=== PATIENT | male | born 1940 | race Caucasian/White ===

== ENCOUNTER 2022-10-01 09:56 | Inpatient (IN) | payer MEDICARE, BC ==
[~2022-10-01] VITALS: Ht 182.9 cm; Wt 72.2 kg
[2022-10-01] MEDS ORDERED: IV NS 0.9% 1,000 ML BAG IV ONE (10:30)
--- NOTE | 2022-10-01 10:38 | NUR ---
Patient AOx1-2, able to express his concerns. Patients caregiver at bedside. VSS
--- NOTE | 2022-10-01 10:44 | NUR ---
MOVE SHEET SUBMITTED.
[2022-10-01] MEDS ORDERED: LORAZEPAM INJ 2 MG/ML VIAL ONE (10:45)
[2022-10-01 10:54] LABS: BASOPHILS % (AUTO) 0.4 % (0.0-2.0); EOSINOPHILS % (AUTO) 0.2 % (0.0-6.0); HEMATOCRIT 41 % (39-51); HEMOGLOBIN 13.8 g/dL (13.5-17.5); LYMPHOCYTES # (AUTO) 1.3 K/uL (0.8-4.8); LYMPHOCYTES % (AUTO) 22.7 % (20.0-44.0); MEAN CORPUSCULAR HGB CONC 34 g/dl (31.0-36.0); MEAN CORPUSCULAR VOLUME 90 fL (80-96); MONOCYTES # (AUTO) 0.8 K/uL (0.1-1.30); MONOCYTES % (AUTO) 13.2 % (2.0-12.0); NEUTROPHILS # (AUTO) 3.6 K/uL (1.8-8.9); NEUTROPHILS % (AUTO) 63.5 % (43.0-81.0); PLATELET COUNT (AUTO) 121 K/uL (150-450); RED BLOOD CELL COUNT(AUTO) 4.55 MIL/uL (4.5-6.0); WHITE BLOOD COUNT (AUTO) 5.7 K/uL (4.3-11.0)
--- NOTE | 2022-10-01 10:54 | NUR ---
COVID swab collected.
[2022-10-01] MEDS ORDERED: LORAZEPAM INJ 2 MG/ML VIAL IV ONE ×2 (11:00→14:00)
[2022-10-01 11:05] LABS: CALCIUM, SERUM 8.6 mg/dL (8.5-10.1); CARBON DIOXIDE 24 mmol/L (21-32); CHLORIDE 97 mmol/L (98-107); CREATININE 1.1 mg/dL (0.6-1.3); GLUCOSE 107 mg/dL (74-106); POTASSIUM 2.9 mmol/L (3.5-5.1); SODIUM SERUM 132 mmol/L (136-145); UREA NITROGEN, BLOOD 15 mg/dL (7-18)
[2022-10-01 11:11] LABS: ALANINE AMINOTRANSFERASE 20 U/L (12-78); ALKALINE PHOSPHATASE 322 U/L (46-116); ASPARTATE AMINOTRANSFERASE 29 U/L (15-37); BILIRUBIN,DIRECT 0.3 mg/dL (0.0-0.2); BILIRUBIN,TOTAL 0.9 mg/dL (0.2-1.0); TOTAL PROTEIN, SERUM 7.5 g/dL (6.4-8.2)
[2022-10-01] MEDS ORDERED: LEVE500T20 PO (11:13)
[2022-10-01] MEDS ORDERED: HYDR100T27 PO (11:13)
[2022-10-01] MEDS ORDERED: ESCI10TA PO (11:13)
[2022-10-01] MEDS ORDERED: ROSU20TA32 PO (11:13)
[2022-10-01] MEDS ORDERED: METO25TA4 PO (11:13)
[2022-10-01] MEDS ORDERED: CLOP75TA15 PO (11:13)
[2022-10-01] MEDS ORDERED: AMLO-212 PO (11:13)
--- NOTE | 2022-10-01 11:30 | NUR ---
Collected urine, sent to lab
[2022-10-01 11:39] LABS: BILIRUBIN,URINE NEGATIVE (NEGATIVE); COLOR,URINE YELLOW (YELLOW); LEUKOCYTE ESTERASE ,URINE NEGATIVE (NEGATIVE); NITRITE, URINE NEGATIVE (NEGATIVE); PH,URINE 8.5 (5.0-8.0); PROTEIN,URINE TRACE mg/dl (NEGATIVE); UGLUCOSE NEGATIVE (NEGATIVE)
--- NOTE | 2022-10-01 11:54 | NUR ---
GOT BED 308-2 SHIRA MENDOZA.
[2022-10-01 12:25] LABS: RBC,URINE 21-50 /HPF (0-2)
[2022-10-01 12:26] LABS: BACTERIA,URINE None seen /HPF (None Seen); SQUAMOUS EPITHELIAL CELL,UR Few /HPF (None Seen); WBC,URINE 0-2 /HPF (0-3)
[2022-10-01] MEDS ORDERED: POTASSIUM CHLORIDE 20 MEQ TAB.PRT.SR PO ONE ×2 (12:30→13:11)
[2022-10-01] MEDS ORDERED: hydrALAZINE HCL IV 20 MG VIAL ONE (13:18)
[2022-10-01] MEDS ORDERED: hydrALAZINE HCL IV 20 MG VIAL IV ONE (13:30)
[2022-10-01] MEDS ORDERED: MAG HYDROX/AL HYDROX/SIMETH 30 ML UDC PO PRN (14:00)
[2022-10-01] MEDS ORDERED: MAGNESIUM HYDROXIDE 30 ML UDC PO PRN (14:00)
[2022-10-01] MEDS ORDERED: ACETAMINOPHEN 325 MG TABLET PO PRN (14:00)
[2022-10-01] MEDS ORDERED: Magnesium 1 GM/2 ML VIAL IV ONE (14:00)
[2022-10-01] MEDS ORDERED: ONDANSETRON HCL/PF 4 MG/2 ML VIAL IVP PRN (14:00)
[2022-10-01] MEDS: METOPROLOL SUCCINATE 25 MG TAB.SR.24H PO SCH ×2 (14:00→17:09)
[2022-10-01] MEDS ORDERED: Z GUARD REMEDY 4 OZ OINT TP PRN (14:00)
[2022-10-01] MEDS ORDERED: ENOXAPARIN SODIUM 30 MG/0.3 ML DISP.SYRIN SQ SCH (14:00)
--- NOTE | 2022-10-01 14:18 | NUR ---
Report given to Alexandra S[facility]
[2022-10-01] MEDS ORDERED: MAGNESIUM OXIDE 400 MG TABLET PO ONE (15:00)
--- NOTE | 2022-10-01 15:30 | NUR ---
ADMISSION RN NOTES ADMITTED A 82 Y/O MALE TO THE UNIT AT 1505 VIA GURNEY ACCOMPANIED BY E.RBrandie NURSE GI, WITH DX OF ALOC. PATIENT IS ALERT AND ORIENTED X, CONFUSED. PT IS REORIENTED AND REDIRECTED NEEDED. PT'S FRIEND, RAFAEL IS AT BEDSIDE. PT IS ORIENTED TO STAFF AND UNIT, REINFORCEMENT NEEDED. V/S TAKEN AND RECORDED. PT ON ROOM AIR, TOLERATING WELL WITH SPO2 AT 96%. NO SOB NOTED AT THIS TIME. NOT IN ANY SIGN OF RESPIRATORY DISTRESS. LUNG SOUNDS CLEAR BILATERALLY UPON AUSCULTATION. TELE AIRCRAFT MECHANIC ELECTRICAL AND RADIO WAS PLACED ON THE PT WITH CURRENT READING OF SINUS RHYTHM, HR 72. NO C/O OF CARDIAC DISTRESS VOICED OUT AT THIS TIME. ABDOMEN SOFT AND NON-TENDER. SKIN IS INTACT, DRY, AND WARM. PHOTOGRAPHS OF SKIN ISSUES TAKEN AND FILED IN THE CHART. IV ACCESS ON RAC G#20 INTACT AND PATENT WITH NS INFUSING AT 75ML/HR. AND ALSO IV ACCESS ON LEFT HAND G#24 SALINE LOCK, INTACT AND PATENT. SAFETY MEASURES INITIATED: BED IN LOWEST AND LOCKED POSITION, SIDE RAILS UP X3, BED ALARM ON, AND CALL LIGHT WITHIN REACH. WILL CONTINUE TO MONITOR PT.
--- NOTE | 2022-10-01 15:38 | NUR ---
RN NOTE METOPROLOL MEDICATION AND ATIVAN 1MG IVP X1 ONE TIME DOSE SCHEDULED AT 1400 NOT ADMINISTERED PT WAS NOT IN THE UNIT AT THAT TIME. PT WAS ADMITTED AT 1505.
--- NOTE | 2022-10-01 15:42 | NUR ---
RN NOTE PT NOTED WITH EPISODES OF RESTLESSNESS AND TRYING TO GET OUT OF BED. PT ALSO PULLED OUT HIS TELE DISINTEGRATOR OPERATOR AND WAS ALSO TRYING TO PULL OUT HIS IV ACCESS. REORIENTED AND REDIRECTED PT SEVERAL TIMES BUT IT WAS INEFFECTIVE. PT'S FAMILY FRIEND ALSO THE PT'S POWER OF CLINICAL EDUCATOR, RAFAEL IS AT BEDSIDE AND REQUESTING FOR ATIVAN TO HELP HIM FEEL CALM AND/OR RESTRAINTS TO HELP HIM NOT PULL OUT HIS IV ACCESS. CALLED DR. CULLEN AND MADE HIM AWARE OF THE PT'S BEHAVIOR WITH ORDERS TO START PT ON BILATERAL SOFT WRIST RESTRAINTS AND ADMINISTER THE ATIVAN ORDERED. MADE PT'S FAMILY FRIEND RAFAEL AWARE AND AGREEABLE. ORDERS CARRIED OUT.
--- NOTE | 2022-10-01 15:45 | NUR ---
RN NOTE BILATERAL SOFT WRIST RESTRAINTS APPLIED TO THE PT. PT HAS GOOD CIRCULATION WITH NO SKIN ISSUES NOTED. WILL CONTINUE TO MONITOR PT.
[2022-10-01] MEDS: LORAZEPAM INJ 2 MG/ML VIAL IV PRN (15:48)
--- NOTE | 2022-10-01 15:50 | NUR ---
RN NOTE ATIVAN O.5MG IVP ADMINISTERED ORDERED Q6HRS PRN FOR ANXIETY AND TO HELP PT'S CURRENT BEHAVIOR OF RESTLESSNESS. PARTIAL DOSE WASTED AND WAS WITNESSED BY SHIRA BRAR. WILL MONITOR AND REASSESS PT.
[2022-10-01] MEDS: IV NS 0.9% 1,000 ML IV PRN (15:58)
[2022-10-01] MEDS: hydrALAZINE HCL 50 MG TABLET PO SCH (17:09)
--- NOTE | 2022-10-01 18:35 | NUR ---
SALES MERCHANDISE ASSOCIATE CLOSING NOTE PT ASLEEP AND RESTING IN BED, EASILY AROUSED WITH FRIEND AT BEDSIDE. PT REMAINS A/O X1, CONFUSED. REORIENTED PT NEEDED. PT ON ROOM AIR, TOLERATING WELL. NO SOB NOTED. NOT IN ANY SIGN OF RESPIRATORY DISTRESS. ON TELE PRESCHOOL PRINCIPAL WITH CURRENT READING OF SINUS RHYTHM, HR 70. NO C/O CARDIAC DISTRESS VOICED OUT AT THIS TIME. IV ACCESS ON RAC G#20 INTACT AND PATENT WITH NS INFUSING AT 75ML/HR. AND ALSO IV ACCESS ON LEFT HAND G#24 SALINE LOCK, INTACT AND PATENT. BILATERAL SOFT WRIST RESTRAINTS IN PLACE. PT REMAINS WITH GOOD CIRCULATION WITH NO SKIN IMPAIRMENT ON BOTH WRIST NOTED. ALL NEEDS ATTENDED. KEPT CLEAN AND COMFORTABLE AT ALL TIMES. TURNED AND REPOSITIONED Q2HRS AND NEEDED. SAFETY MEASURES IN PLACE: BED IN LOWEST AND LOCKED POSITION, SIDE RAILS UPX2, BED ALARM ON, AND CALL LIGHT WITHIN REACH. WILL ENDORSE TO RECORDS ANALYSIS MANAGER NURSE FOR ELINA.
--- NOTE | 2022-10-01 19:59 | NUR ---
PLANT MAINTENANCE MANAGER OPENING NOTE PATIENT AWAKE IN BED, ALERT/ORIENTED X 1, CONFUSED, CAREGIVER AT BEDSIDE. PT STABLE ON RA, NO S/S OF DISTRESS OR SOB NOTED, BREATHING EVEN AND UNLABORED. PATIENT ON EXTERNAL BUFFING WHEEL INSPECTOR READING SINUS RHYTHM, HR: 62. IV ACCESS ON LEFT HAND #24G INTACT AND SALINE LOCKED, RAC #20G IV ACCESS INTACT AND INFUSING NS @ 75 ML/HR. BILATERAL SOFT WRIST RESTRAINTS IN PLACE, RELEASED AND CIRCULATION CHECKED. SAFETY MEASURES IN PLACE: CALL LIGHT WITHIN REACH, SIDE RAILS UP X 3, BED LOCKED IN LOWEST POSITION, HOB ELEVATED, BED ALARM ON. WILL CONTINUE TO MONITOR PATIENT
[2022-10-01 20:00] VITALS: BP 183/87
[2022-10-01] MEDS: LEVETIRACETAM (250 MG) 250 MG TABLET PO SCH (20:48)
[2022-10-01] MEDS: CLONIDINE HCL 0.1 MG TABLET PO PRN (20:48)
--- NOTE | 2022-10-01 20:50 | NUR ---
SASH ASSEMBLER NOTE PATIENT'S BP 183/87, PRN CLONIDINE 0.1 MG PO GIVEN ORDERED. WILL CONTINUE TO MONITOR PATIENT
[2022-10-01] MEDS: ENOXAPARIN SODIUM 40 MG/0.4 ML DISP.SYRIN SQ SCH (21:54)
[2022-10-02] VITALS: BP 182/92
[2022-10-02] MEDS: LORAZEPAM INJ 2 MG/ML VIAL IV PRN (00:12)
--- NOTE | 2022-10-02 00:15 | NUR ---
VIOLIN RESTORER NOTE PATIENT'S BP STILL ELEVATED DESPITE PRN CLONIDINE 0.1 MG Q6H GIVEN AT 2048. UNABLE TO GIVE PRN CLONIDINE AGAIN AT THIS TIME D/T BEING Q6H. PATIENT RESTLESS AT THIS TIME, POSSIBLY CAUSING ELEVATED BP. PRN ATIVAN 0.5 MG IV Q6H GIVEN ORDERED. WILL CONTINUE TO MONITOR PATIENT
[2022-10-02 05:00] VITALS: BP 154/77
[2022-10-02] MEDS: IV NS 0.9% 1,000 ML IV PRN (05:33)
--- NOTE | 2022-10-02 06:17 | NUR ---
COMMERCIAL LINES MANAGER CLOSING NOTE PATIENT SLEEPING IN BED, ALERT/ORIENTED X 1, CONFUSED. PT STABLE ON RA, NO S/S OF DISTRESS OR SOB NOTED, BREATHING EVEN AND UNLABORED. PATIENT ON EXTERNAL LINE PERSON READING SINUS RHYTHM, HR: 60. IV ACCESS ON LEFT HAND #24G INTACT AND SALINE LOCKED, RAC #20G IV ACCESS INTACT AND INFUSING NS @ 75 ML/HR. BILATERAL SOFT WRIST RESTRAINTS IN PLACE, RELEASED AND CIRCULATION CHECKED. MEDICATIONS GIVEN ORDERED, PT NEEDS MET THROUGHOUT SHIFT, PT TURNED AND REPOSITIONED Q2H. SAFETY MEASURES IN PLACE: CALL LIGHT WITHIN REACH, SIDE RAILS UP X 3, BED LOCKED IN LOWEST POSITION, HOB ELEVATED, BED ALARM ON. WILL ENDORSE TO DAYSHIFT RN FOR CONTINUITY OF CARE
[2022-10-02 06:28] LABS: BASOPHILS % (AUTO) 0.2 % (0.0-2.0); EOSINOPHILS % (AUTO) 0.2 % (0.0-6.0); HEMATOCRIT 36 % (39-51); HEMOGLOBIN 12.3 g/dL (13.5-17.5); LYMPHOCYTES # (AUTO) 0.9 K/uL (0.8-4.8); LYMPHOCYTES % (AUTO) 20.4 % (20.0-44.0); MEAN CORPUSCULAR HGB CONC 34 g/dl (31.0-36.0); MEAN CORPUSCULAR VOLUME 92 fL (80-96); MONOCYTES # (AUTO) 0.7 K/uL (0.1-1.30); MONOCYTES % (AUTO) 15.7 % (2.0-12.0); NEUTROPHILS # (AUTO) 2.7 K/uL (1.8-8.9); NEUTROPHILS % (AUTO) 63.5 % (43.0-81.0); PLATELET COUNT (AUTO) 100 K/uL (150-450); RED BLOOD CELL COUNT(AUTO) 3.98 MIL/uL (4.5-6.0); WHITE BLOOD COUNT (AUTO) 4.3 K/uL (4.3-11.0)
[2022-10-02 06:54] LABS: CALCIUM, SERUM 8.1 mg/dL (8.5-10.1); CREATININE 0.9 mg/dL (0.6-1.3); MAGNESIUM 1.9 mg/dL (1.8-2.4); PHOSPHORUS 4.5 mg/dL (2.5-4.9); POTASSIUM 3.5 mmol/L (3.5-5.1)
--- NOTE | 2022-10-02 07:31 | NUR ---
DIRECTOR OF VETERANS AFFAIRS OPENING NOTE Patient in bed, asleep. A/O x 1, confused. On room air, breathing evenly and unlabored. No SOB or s/s of distress noted. IV access on RAC #20 infusing NS at 75 ml/hr and Left hand #24 SL, intact and patent. On external monitor showing SR, HR 68. Bilateral soft wrist restraints noted. Safety precautions in place: bed in low, locked position; siderails up x 2; call light within reach. Will continue to monitor.
[2022-10-02 08:06] LABS: LYMPHOCYTES % (MANUAL) 23 % (16-48); MONOCYTES % (MANUAL) 15 % (0-11.0); NEUTROPHILS % (MANUAL) 62 (42-76)
[2022-10-02 08:20] VITALS: BP 185/100
[2022-10-02] MEDS: CLOPIDOGREL BISULFATE 75 MG TABLET PO SCH (08:22)
[2022-10-02] MEDS: hydrALAZINE HCL 50 MG TABLET PO SCH ×3 (08:23→17:04)
[2022-10-02] MEDS: METOPROLOL SUCCINATE 25 MG TAB.SR.24H PO SCH ×2 (08:23→17:02)
[2022-10-02] MEDS: LEVETIRACETAM (250 MG) 250 MG TABLET PO SCH ×2 (08:23→21:27)
[2022-10-02] MEDS ORDERED: NIFEdipine XL (30MG) 30 MG TAB PO SCH (09:30)
[2022-10-02] MEDS: CLONIDINE HCL 0.1 MG TABLET PO PRN (15:56)
[2022-10-02 16:05] VITALS: BP 183/85
--- NOTE | 2022-10-02 18:00 | NUR ---
RN NOTE Patient's BP has been consistently high, 183/85 @ 1600 Clonidine 0.1 mg PO given. BP rechecked at 1700 180/100, scheduled Metoprolol and Hydralazine given. BP rechecked at 1800 170/98. All BPs checked manually. Dr. Goodson notified and ordered Nifedipine 30 mg to be increased to Nifedipine 60 mg and ordered Nifedipine 60 mg to be given now, one time. Carried out.
--- NOTE | 2022-10-02 18:56 | NUR ---
LEGISLATIVE CORRESPONDENT CLOSING NOTE Patient in bed, resting. A/O x 0, confused. On room air, breathing evenly and unlabored. No SOB or s/s of distress noted. IV access on RAC #20 infusing NS at 75 ml/hr and Left hand #24 SL, intact and patent. On external monitor showing SR, HR 67. Bilateral soft wrist restraints noted. Tuned and repositioned, as tolerated. Due meds given. Patient kept clean and dry. Safety precautions in place: bed in low, locked position; siderails up x 2; call light within reach. Will endorse to manufacturing supervisor 2nd shift nurse for ELINA.
[2022-10-02] MEDS ORDERED: NIFEdipine XL (30MG) 30 MG TAB PO ONE ×2 (19:00→21:22)
--- NOTE | 2022-10-02 19:45 | NUR ---
TELERN ASLEEP, EASILY AWAKENED WHEN CALLED. LIMITED VERBAL. WEAK IN APPEARANCE. REPOSITIONED PER PTS' COMFORT. SR ON THE MONITOR. ALL NEEDS ATTENDED. CONTINUED MONITORING
[2022-10-02 20:00] VITALS: BP 152/93
[2022-10-02] MEDS: ENOXAPARIN SODIUM 40 MG/0.4 ML DISP.SYRIN SQ SCH (21:28)
--- NOTE | 2022-10-02 22:00 | NUR ---
TELERN UE MEDS GIVEN ASSISTED. MEDS GIVEN WITH JELLO. ASPIRATION PRECAUTION OBSERVED. HOB 30 DEGREES.. KEPT COMFORTABLE.
[2022-10-03 04:00] VITALS: BP 113/78
[2022-10-03 06:16] VITALS: BP 118/62
[2022-10-03 06:33] LABS: BASOPHILS % (AUTO) 0.2 % (0.0-2.0); EOSINOPHILS % (AUTO) 0.8 % (0.0-6.0); HEMATOCRIT 41 % (39-51); HEMOGLOBIN 13.6 g/dL (13.5-17.5); LYMPHOCYTES # (AUTO) 1.4 K/uL (0.8-4.8); LYMPHOCYTES % (AUTO) 11.9 % (20.0-44.0); MEAN CORPUSCULAR HGB CONC 33 g/dl (31.0-36.0); MEAN CORPUSCULAR VOLUME 92 fL (80-96); MONOCYTES # (AUTO) 1.3 K/uL (0.1-1.30); MONOCYTES % (AUTO) 11.1 % (2.0-12.0); NEUTROPHILS # (AUTO) 8.9 K/uL (1.8-8.9); PLATELET COUNT (AUTO) 191 K/uL (150-450); RED BLOOD CELL COUNT(AUTO) 4.43 MIL/uL (4.5-6.0); WHITE BLOOD COUNT (AUTO) 11.8 K/uL (4.3-11.0)
--- NOTE | 2022-10-03 06:33 | NUR ---
TELERN REMAINS SR ONT HE MONITOR, BED BATHED, LARGE URINE OUPUT WITH SMALL SOFT BM. EXTREMITIES RIGID, BILATERAL SOFT WRIST RESTRAINTS OFF FOR NOW. REPOSITIONED.KEPT COMFORTABLE
[2022-10-03 06:42] LABS: CALCIUM, SERUM 8.7 mg/dL (8.5-10.1); CREATININE 1.1 mg/dL (0.6-1.3); POTASSIUM 3.6 mmol/L (3.5-5.1)
[2022-10-03 07:00] VITALS: BP 130/81
--- NOTE | 2022-10-03 07:53 | NUR ---
COKE WORKER OPENING NOTE Patient in bed, asleep. A/O x 1. On room air, breathing evenly and unlabored. No SOB or s/s of distress noted. IV access on RAC #20 infusing NS at 75 ml/hr and Left hand #24 SL, intact and patent. On external monitor showing SR, HR 92. Bilateral soft wrist restraints off for now. Safety precautions in place: bed in low, locked position; siderails up x 2; call light within reach. Will continue to monitor.
[2022-10-03] MEDS: METOPROLOL SUCCINATE 25 MG TAB.SR.24H PO SCH ×2 (09:32→16:29)
[2022-10-03] MEDS: hydrALAZINE HCL 50 MG TABLET PO SCH ×3 (09:32→16:29)
[2022-10-03] MEDS: CLOPIDOGREL BISULFATE 75 MG TABLET PO SCH (09:33)
[2022-10-03] MEDS: NIFEdipine XL (30MG) 30 MG TAB PO SCH (09:33)
[2022-10-03] MEDS: LEVETIRACETAM (250 MG) 250 MG TABLET PO SCH ×2 (09:33→21:03)
[2022-10-03 12:00] VITALS: BP 113/61
[2022-10-03] MEDS: IV NS 0.9% 1,000 ML IV PRN (13:55)
[2022-10-03 16:00] VITALS: BP 98/58
[2022-10-03] MEDS ORDERED: GADOTERATE MEGLUMINE 10 MMOL/20 ML VIAL IV ONE (16:53)
--- NOTE | 2022-10-03 18:30 | NUR ---
RN NOTE Per BRITTANY Carmona Lovenox is okay to give per Dr. Spencer's instruction.
--- NOTE | 2022-10-03 19:32 | NUR ---
CASINO OPERATIONS SUPERVISOR OPENING NOTE Patient in bed, resting. A/O x 1. On room air, breathing evenly and unlabored. No SOB or s/s of distress noted. IV access on RAC #20 infusing NS at 75 ml/hr and Left hand #24 SL, intact and patent. On external monitor showing SR, HR 70's. Patient kept clean and dry. Due meds given. Turned and repositioned, as tolerated. Safety precautions in place: bed in low, locked position; siderails up x 2; call light within reach. Will endorse to warehouse shift supervisor nurse for ELINA.
[2022-10-03 20:24] VITALS: BP 110/62
[2022-10-03] MEDS: ENOXAPARIN SODIUM 40 MG/0.4 ML DISP.SYRIN SQ SCH (21:03)
--- NOTE | 2022-10-03 21:08 | NUR ---
ANTICOAGULANT H/H 13.6 PLT 191. with orders to OKAY TO GIVE LOVENOX INJECTION PER DR. PEÑA/NEURO co-signed by SHIRA Melendez.
[2022-10-04 00:13] VITALS: BP 114/66
[2022-10-04] MEDS: IV NS 0.9% 1,000 ML IV PRN ×2 (04:47→18:03)
--- NOTE | 2022-10-04 06:30 | NUR ---
END OF SHIFT REPORT Patient in bed, Alert Oriented x1-2. Oxygen sat high 90's in RA. Sinus Brenton, Sinus Rhythm in the Tele monitor HR 70's. Right arm IV, On IVF continuous. Limited movement BUE d/t pain, denies pain when not move. Turned and repositioned q 2h. NIH stroke scale QS. No episode of seizures during the shift, on Keppra PO. Neuro following. Will endorse to oncoming RN.
[2022-10-04 07:00] VITALS: BP 136/75
[2022-10-04 07:14] LABS: CALCIUM, SERUM 8.1 mg/dL (8.5-10.1); POTASSIUM 3.1 mmol/L (3.5-5.1)
[2022-10-04 07:21] LABS: BASOPHILS % (AUTO) 0.2 % (0.0-2.0); EOSINOPHILS % (AUTO) 1.8 % (0.0-6.0); HEMATOCRIT 31 % (39-51); HEMOGLOBIN 10.8 g/dL (13.5-17.5); LYMPHOCYTES # (AUTO) 0.7 K/uL (0.8-4.8); MEAN CORPUSCULAR HGB CONC 35 g/dl (31.0-36.0); MEAN CORPUSCULAR VOLUME 91 fL (80-96); MONOCYTES # (AUTO) 0.7 K/uL (0.1-1.30); MONOCYTES % (AUTO) 15.3 % (2.0-12.0); NEUTROPHILS # (AUTO) 3.3 K/uL (1.8-8.9); NEUTROPHILS % (AUTO) 68.7 % (43.0-81.0); PLATELET COUNT (AUTO) 97 K/uL (150-450); RED BLOOD CELL COUNT(AUTO) 3.44 MIL/uL (4.5-6.0); WHITE BLOOD COUNT (AUTO) 4.7 K/uL (4.3-11.0)
--- NOTE | 2022-10-04 07:22 | NUR ---
RN OPENING NOTE RECEIVED PATIENT IN BED, AWAKE, ALERT AND VERBALLY RESPONSIVE. NO SIGNS OF ACUTE DISTRESS NOTED. ON ROOM AIR, TOLERATING WELL, NO SOB NOTED, BREATHING EVEN AND UNLABORED. DENIES ANY PAIN AT THIS TIME. ON TELE MONITOR SHOWING SINUS RHYTHM, HR @69. NOTED WITH IV ACCESS ON RIGHT ANTECUBITAL AREA #20G, INTACT AND PATENT SALINE LOCKED WITH NS @ 75ML/HR RUNNING. SAFETY MEASURE IN PLACE. BED IN LOW AND LOCKED POSITION, SIDE RAILS UP X2, CALL LIGHT PLACED WITHIN EASY REACH. WILL CONTINUE TO MONITOR PATIENT.
[2022-10-04] MEDS: hydrALAZINE HCL 50 MG TABLET PO SCH ×3 (08:59→16:32)
[2022-10-04] MEDS: LEVETIRACETAM (250 MG) 250 MG TABLET PO SCH ×2 (08:59→21:19)
[2022-10-04] MEDS: NIFEdipine XL (30MG) 30 MG TAB PO SCH (09:00)
[2022-10-04] MEDS ORDERED: POTASSIUM CHLORIDE 20 MEQ POWDER PACKET PO ONE (09:00)
[2022-10-04] MEDS: METOPROLOL SUCCINATE 25 MG TAB.SR.24H PO SCH ×2 (09:00→16:31)
[2022-10-04 09:18] LABS: EOSINOPHILS % (MANUAL) 1 % (0-4); LYMPHOCYTES % (MANUAL) 12 % (16-48); MONOCYTES % (MANUAL) 8 % (0-11.0); NEUTROPHILS % (MANUAL) 79 (42-76)
[2022-10-04 12:00] VITALS: BP 149/75
[2022-10-04 16:00] VITALS: BP 139/77
--- NOTE | 2022-10-04 18:41 | NUR ---
RN CLOSING NOTE PATIENT IN BED, ASLEEP, EASILY AROUSED. NO SIGNS OF ACUTE DISTRESS NOTED. REMAINS STABLE ON ROOM AIR, NO SOB NOTED, BREATHING EVEN AND UNLABORED. NO C/O PAIN OR DISCOMFORT. ON TELE MONITOR SHOWING SINUS RHYTHM, HR @72. IV ACCESS ON RIGHT ANTECUBITAL AREA #20G, INTACT AND PATENT SALINE LOCKED WITH NS @ 75ML/HR RUNNING. WITH CONDOM CATHETER DRAINING CLEAR TRUDI COLORED URINE. SAFETY MEASURE MAINTAINED. BED IN LOW AND LOCKED POSITION, SIDE RAILS UP X2, CALL LIGHT PLACED WITHIN EASY REACH. WILL ENDORSE TO NEXT SHIFT FOR CONTINUITY OF CARE.
--- NOTE | 2022-10-04 19:24 | NUR ---
SALES OFFICE ASSISTANT OPENING NOTES: RECEIVED PATIENT SLEEP IN BED COMFORTABLY,AROUSABLE TO VERBAL STIMULI ACCOMPANIED BY FAMILY, BED IN LOW POSITION CALL LIGHTS WITHIN REACH, NO COMPLAIN OF PAIN AND DISCOMFORT AT THIS TIME ON ROOM AIR SATURATING WELL, ON TELE MONITOR- SR-72, , ON CONDOM CATHETER- 50 CC URINE OUTPUT, IV LINE AT RAC#20 WITH ONGOING NSS@75 ML/HR INFUSING WELL, PATIENT KEPT CLEAN AND DRY ALL NEEDS MET WILL CONTINUE TO MONITOR.
[2022-10-04 20:00] VITALS: BP_SYST 12; BP_SYST 123; BP_DIAS 64
[2022-10-04] MEDS: ENOXAPARIN SODIUM 40 MG/0.4 ML DISP.SYRIN SQ SCH (21:20)
--- NOTE | 2022-10-04 22:00 | NUR ---
RN NOTES: INITIAL SWALLOW EVALUATION PRIOR TO MEDICATION INTAKE, NO DIFFICULTY LIQUID INTAKE, NO COUGHING, TRIED WITH APPLE SAUCE, NO DIFFICULTY WAS OBSERVED, PATIENT HAS MEDICATION CRUSH KEPPRA 500MG MIX WITH APPLE SAUCE PATIENT WAS ABLE TO SWALLOW WITHOUT DIFFICULTY, DONE ON UPRIGHT POSITION, WILL CONTINUE TO MONITOR.
[2022-10-05] VITALS: BP 133/79
[2022-10-05 04:00] VITALS: BP 132/73
[2022-10-05 06:04] LABS: BASOPHILS % (AUTO) 0.2 % (0.0-2.0); EOSINOPHILS % (AUTO) 1.7 % (0.0-6.0); HEMATOCRIT 33 % (39-51); HEMOGLOBIN 11.3 g/dL (13.5-17.5); LYMPHOCYTES # (AUTO) 0.9 K/uL (0.8-4.8); LYMPHOCYTES % (AUTO) 14.8 % (20.0-44.0); MEAN CORPUSCULAR HGB CONC 34 g/dl (31.0-36.0); MEAN CORPUSCULAR VOLUME 91 fL (80-96); MONOCYTES # (AUTO) 0.9 K/uL (0.1-1.30); MONOCYTES % (AUTO) 15.4 % (2.0-12.0); NEUTROPHILS # (AUTO) 4.1 K/uL (1.8-8.9); NEUTROPHILS % (AUTO) 67.9 % (43.0-81.0); PLATELET COUNT (AUTO) 125 K/uL (150-450); RED BLOOD CELL COUNT(AUTO) 3.67 MIL/uL (4.5-6.0)
[2022-10-05 06:05] LABS: CALCIUM, SERUM 8.2 mg/dL (8.5-10.1); CARBON DIOXIDE 22 mmol/L (21-32); CHLORIDE 106 mmol/L (98-107); GLUCOSE 93 mg/dL (74-106); POTASSIUM 3.4 mmol/L (3.5-5.1); SODIUM SERUM 139 mmol/L (136-145); UREA NITROGEN, BLOOD 28 mg/dL (7-18)
--- NOTE | 2022-10-05 06:41 | NUR ---
MANAGER CUSTOMS CLOSING NOTES: PATIENT SLEEP IN BED COMFORTABLY, AROUSABLE, NO COMPLAIN OF PAIN AND DISCOMFORT AT THIS TIME, BED IN LOW POSITION, CALL LIGHTS WITHIN REACH, ON ROOM AIR SATURATING WELL, PATIENT IS A/OX2-3 NO CHANGES IN CONDITION HAS BEEN OBSERVED , ON TELE MONITOR- SR-95, PATIENT KEPT CLEAN AND DRY ALL NEEDS MET ENDORSE TO INCOMING SHIFT.
[2022-10-05] MEDS: IV NS 0.9% 1,000 ML IV PRN (06:53)
[2022-10-05 07:00] VITALS: BP 145/81
--- NOTE | 2022-10-05 07:13 | NUR ---
CHARACTER ACTRESS OPENING NOTES RECEIVED AWAKE IN BED, A/Ox1-2, ABLE TO RESPOND TO VERBAL AND TACTILE STIMULI. ON ROOM AIR, NO S/S OF RESPIRATORY DISTRESS. ON TELE MONITORING SHOWING SINUS TACH 110, NO C/O OF CARDIAC DISTRESS OR DISCOMFORT. IV ACCESS RAC #20G RUNNING NS 75ML/HR. INTACT AND PATENT. HAS CONDOM CATH DRAINING YELLOW URINE. SKIN ISSUES: SACRAL REDNESS. SAFETY MEASURES IN PLACE: BED LOCKED AND IN LOWEST POSITION, HOB ELEVATED, SIDE RAILS UPx2, CALL LIGHT WITHIN REACH. WILL CONTINUE TO MONITOR.
[2022-10-05] MEDS ORDERED: POTASSIUM CHLORIDE 20 MEQ TAB.PRT.SR PO ONE (07:30)
[2022-10-05] MEDS ORDERED: NIFE-35 PO (08:41)
[2022-10-05] MEDS ORDERED: CLON0.1T PO (08:41)
[2022-10-05] MEDS: LEVETIRACETAM (250 MG) 250 MG TABLET PO SCH (08:53)
[2022-10-05] MEDS: hydrALAZINE HCL 50 MG TABLET PO SCH ×2 (08:54→12:11)
[2022-10-05] MEDS: NIFEdipine XL (30MG) 30 MG TAB PO SCH (08:54)
[2022-10-05] MEDS: METOPROLOL SUCCINATE 25 MG TAB.SR.24H PO SCH (08:55)
--- NOTE | 2022-10-05 09:28 | NUR ---
WOUND CARE CONSULT: PT PRESENTS WITH SACRAL INTACT DEEP TISSUE INJURY WHICH WAS NOTED TO BE PRESENT IN ADMISSION PHOTO. PT NOTED TO HAVE SOME DISCOLORATION TO ARMS AND FRAGILE SKIN. RECOMMENDATIONS MADE FOR SKIN PROTECTION AND DISCUSSED WITH NURSING STAFF. MD IN AGREEMENT WITH PLAN OF CARE.
--- NOTE | 2022-10-05 09:30 | NUR ---
RN NOTES PATIENT COMPLAINED OF PAIN AND DISCOMFORT AFTER TURNING FOR WOUND CARE OF SACRUM. PRN TYLENOL ADMINISTERED. WILL CONTINUE TO MONITOR.
[2022-10-05 11:16] VITALS: BP 123/58
[2022-10-05 15:19] VITALS: BP 103/60
--- NOTE | 2022-10-05 16:47 | NUR ---
SALES EXHIBITOR NOTES PATIENT DISCHARGED TO SNF, REPORT GIVEN TO SHIRA GRIFFIN. PATIENT A/Ox1-2 ABLE TO RESPOND TO VERBAL AND TACTILE STIMULI. PATIENT IV ACCESS REMOVED PRESSURE DRESSING APPLIED. ALL FORMS SIGNED BY MEGHAN AT BEDSIDE. PHOTOS TAKEN OF SKIN ISSUES. D/C INSTRUCTIONS AND HEALTH TEACHINGS EXPLAINED TO MEGHAN AND PATIENT. MEGHAN VERBALIZED UNDERSTANDING. PATIENT LEFT UNIT @1635 ACCOMPANIED BY TWO registered nurse maternity. CHARGE NURSE AND MD AWARE OF DISCHARGE.
[2022-10-06 00:18] LABS: BASOPHILS % (MANUAL) 0 % (0.0-2.0); EOSINOPHILS % (MANUAL) 2 % (0-4); LYMPHOCYTES % (MANUAL) 13 % (16-48); MONOCYTES % (MANUAL) 14 % (0-11.0); NEUTROPHILS % (MANUAL) 71 (42-76)
[2022-10-06] MEDS ORDERED: CLOPIDOGREL BISULFATE 75 MG TABLET PO SCH (09:00)
== END 2022-10-05 16:42 | DRG 64 ==
LOC: ER 10:03 → TELE 14:18
PROVIDERS: ADMIT Internal Medicine; ATTEND Internal Medicine
DX: I61.1 Nontraumatic intracerebral hemorrhage in hemisphere, cortical (principal); G93.41 Metabolic encephalopathy; E87.1 Hypo-osmolality and hyponatremia; I16.0 Hypertensive urgency; G40.909 Epilepsy, unspecified, not intractable, without status epilepticus; E86.0 Dehydration; E87.6 Hypokalemia; E83.42 Hypomagnesemia; Z88.6 Allergy status to analgesic agent; Z79.02 Long term (current) use of antithrombotics/antiplatelets; Z79.899 Other long term (current) drug therapy; I10 Essential (primary) hypertension; F31.9 Bipolar disorder, unspecified; E86.1 Hypovolemia; E78.5 Hyperlipidemia, unspecified; I25.10 Atherosclerotic heart disease of native coronary artery without angina pectoris; E88.09 Other disorders of plasma-protein metabolism, not elsewhere classified; Z86.73 Personal history of transient ischemic attack (TIA), and cerebral infarction without residual deficits
CPT/HCPCS: 36415; 70450-TC; 70553-TC; 71045-TC; 80048-TC; 80076-TC; 80177; 81001; 82550-TC; 82962-TC; 83735-TC; 84100-TC; 84484-TC; 85025-TC; 85610-TC; 85730-TC; 87081-TC; 92526; 92611-TC; 95819-TC; 97110-TC; 97112-TC; 97530-TC; A4223; A4349; A9575; C9803; G0378; J0360; J1650; J2060; J7030

== ENCOUNTER 2022-10-13 14:34 | Inpatient (IN) | payer MEDICARE, BC ==
[~2022-10-13] VITALS: Ht 175.3 cm; Wt 74.4 kg
[~2022-10-13 14:34] MED LIST: CLON0.1T PO; ESCI10TA PO; HYDR100T27 PO; LEVE500T20 PO; METO25TA4 PO; NIFE-35 PO; ROSU20TA32 PO
--- NOTE | 2022-10-13 14:45 | NUR ---
RECEIVED PT 82 YRS MALE TRANSFER BY [facility] FROM [facility] FOR INSERTION OF GT AWAKE ALERT X2 FALLOW COMMAND
--- NOTE | 2022-10-13 15:15 | NUR ---
COVID SWAB SENT TO LAB ORDERED.
--- NOTE | 2022-10-13 15:16 | NUR ---
LILLY LOMBARDI FROM [facility] FOR G TUBE PLACEMENT. PT "NOT EATEN FOR DAYS"
[2022-10-13] MEDS ORDERED: IV NS 0.9% 1,000 ML BAG IV ONE (15:30)
[2022-10-13 15:37] LABS: BASOPHILS % (AUTO) 0.2 % (0.0-2.0); EOSINOPHILS % (AUTO) 2.2 % (0.0-6.0); HEMATOCRIT 32 % (39-51); HEMOGLOBIN 10.7 g/dL (13.5-17.5); LYMPHOCYTES # (AUTO) 0.9 K/uL (0.8-4.8); LYMPHOCYTES % (AUTO) 13.4 % (20.0-44.0); MEAN CORPUSCULAR HGB CONC 33 g/dl (31.0-36.0); MEAN CORPUSCULAR VOLUME 95 fL (80-96); MONOCYTES # (AUTO) 0.4 K/uL (0.1-1.30); MONOCYTES % (AUTO) 6.4 % (2.0-12.0); NEUTROPHILS # (AUTO) 5.3 K/uL (1.8-8.9); NEUTROPHILS % (AUTO) 77.8 % (43.0-81.0); PLATELET COUNT (AUTO) 243 K/uL (150-450); RED BLOOD CELL COUNT(AUTO) 3.41 MIL/uL (4.5-6.0); WHITE BLOOD COUNT (AUTO) 6.8 K/uL (4.3-11.0)
--- NOTE | 2022-10-13 15:53 | NUR ---
URINE SPECIMEN SENT TO LAB ORDERED
[2022-10-13] MEDS ORDERED: CLON0.1T PO (16:15)
[2022-10-13] MEDS ORDERED: AMIN30LI2 PO (16:15)
[2022-10-13] MEDS ORDERED: ACET-868 PO (16:15)
[2022-10-13] MEDS ORDERED: DOCU-141 PO (16:15)
[2022-10-13] MEDS ORDERED: NIFE60TA2 PO (16:15)
[2022-10-13] MEDS ORDERED: BISA10SU11 RC (16:15)
[2022-10-13] MEDS ORDERED: TRAM50TA2 PO (16:15)
[2022-10-13] MEDS ORDERED: MEGE400O6 PO (16:15)
[2022-10-13] MEDS ORDERED: NA P133E RC (16:15)
[2022-10-13] MEDS ORDERED: MAG30ORA PO (16:15)
[2022-10-13] MEDS ORDERED: CRAN425C6 PO (16:15)
[2022-10-13] MEDS ORDERED: MAGN400O6 PO (16:15)
[2022-10-13] MEDS ORDERED: CLOP75TA15 PO (16:15)
--- NOTE | 2022-10-13 16:21 | NUR ---
GOT BED 328-2.
--- NOTE | 2022-10-13 16:25 | NUR ---
WAIT FOR DR. MIRAMONTES TO PRESENT THE PATIENT BEFORE SENDING UP TO THE ROOM.
--- NOTE | 2022-10-13 16:25 | NUR ---
BLOOD SAMPLE OBTAINED
--- NOTE | 2022-10-13 16:33 | NUR ---
UNABLE TO INSERTED IV LINE FOR IVF AWARE CALLED FOR [facility]
[2022-10-13 16:35] LABS: BILIRUBIN,URINE NEGATIVE (NEGATIVE); COLOR,URINE YELLOW (YELLOW); LEUKOCYTE ESTERASE ,URINE 3+ (NEGATIVE); NITRITE, URINE POSITIVE (NEGATIVE); PROTEIN,URINE TRACE mg/dl (NEGATIVE); UGLUCOSE NEGATIVE (NEGATIVE)
[2022-10-13 16:40] LABS: BACTERIA,URINE Many /HPF (None Seen); RBC,URINE 0-2 /HPF (0-2); SQUAMOUS EPITHELIAL CELL,UR Few /HPF (None Seen)
[2022-10-13 16:41] LABS: WBC,URINE 51-80 /HPF (0-3)
--- NOTE | 2022-10-13 16:50 | NUR ---
INSERTED MIDLINE ON LT UPPER ARM G 18 INFUSED AND PATENT
[2022-10-13 16:57] LABS: CALCIUM, SERUM 8.4 mg/dL (8.5-10.1); CARBON DIOXIDE 18 mmol/L (21-32); CHLORIDE 106 mmol/L (98-107); CREATININE 2.1 mg/dL (0.6-1.3); GLUCOSE 101 mg/dL (74-106); POTASSIUM 3.7 mmol/L (3.5-5.1); SODIUM SERUM 137 mmol/L (136-145); UREA NITROGEN, BLOOD 69 mg/dL (7-18)
[2022-10-13] MEDS ORDERED: CEFTRIAXONE 1GM BAG (ER ONLY) 50 ML IV ONE (16:57)
[2022-10-13] MEDS ORDERED: CEFTRIAXONE 1GM BAG (ER ONLY) 1 GM/50 ML PIGGYBACK IV ONE (17:00)
[2022-10-13 17:04] LABS: ALANINE AMINOTRANSFERASE 28 U/L (12-78); ALBUMIN 2.3 g/dL (3.4-5.0); ALKALINE PHOSPHATASE 317 U/L (46-116); ASPARTATE AMINOTRANSFERASE 27 U/L (15-37); BILIRUBIN,DIRECT 0.4 mg/dL (0.0-0.2); BILIRUBIN,TOTAL 0.8 mg/dL (0.2-1.0); LIPASE 90 U/L (73-393); TOTAL PROTEIN, SERUM 7.1 g/dL (6.4-8.2)
--- NOTE | 2022-10-13 17:46 | NUR ---
HAND OFF TO [facility] ROOM 328-2
--- NOTE | 2022-10-13 18:26 | NUR ---
[facility] CALLED STEEL LAYER PAGED.
--- NOTE | 2022-10-13 19:18 | NUR ---
[facility] CALLED DISABILITY SPECIALIST PAGED.
[2022-10-13] MEDS ORDERED: NA PHOS,M-B/NA PHOS,DI-BA 1 EA ENEMA RC PRN (19:30)
[2022-10-13] MEDS ORDERED: TRAMADOL HCL 50 MG TABLET PO PRN (19:30)
[2022-10-13] MEDS ORDERED: MAG HYDROX/AL HYDROX/SIMETH 30 ML UDC PO PRN ×2 (19:30→20:00)
[2022-10-13] MEDS ORDERED: CLONIDINE HCL 0.1 MG TABLET PO PRN (19:30)
[2022-10-13] MEDS ORDERED: MAGNESIUM HYDROXIDE 30 ML UDC PO PRN ×2 (19:30→20:00)
[2022-10-13] MEDS ORDERED: BISACODYL SUPP (10 MG) 10 MG/SUPP.RECT SUPP.RECT RC PRN (19:30)
--- NOTE | 2022-10-13 19:32 | NUR ---
HAND OFF ALLEN SILVA
[2022-10-13 20:00] VITALS: BP 173/92
[2022-10-13] MEDS ORDERED: ONDANSETRON HCL/PF 4 MG/2 ML VIAL IVP PRN (20:00)
[2022-10-13] MEDS ORDERED: ACETAMINOPHEN 325 MG TABLET PO PRN (20:00)
--- NOTE | 2022-10-13 20:00 | NUR ---
ADMISSION RN NOTE PATIENT BROUGHT UP IN UNIT AT 1999 VIA GURNEY, ACCOMPANIED BY 2 ER PERSONNEL AND DRISS, PATIENT'S CAREGIVER. NO S/S OF APPARENT DISTRESS ON ROOM AIR. BREATHING EVEN AND UNLABORED. DENIES PAIN AT THIS TIME. PATIENT IS A/OX2 TO NAME AND TIME ONLY. NEW ID BAND ON PATIENT. PATIENT HAS LEFT UPPER ARM MIDLINE 18G-- STARTED ON IV NS @100MLS/HR ORDERED. AND RT. HAND 22G THAT IS NOT PATENT ANYMORE-- WILL REMOVE. SKIN ASSESSMENT DONE, PICTURES TAKEN. BELONGINGS CHECKED, PATIENT UNABLE TO SIGN. PER PATIENT MANAGER E COMMERCE, PATIENT IS UP TO DATE WITH HIS IMMUNIZATIONS INCLUDING COVID. POLST IN CHART AND PATIENT IS FULL CODE. DPOA RAFAEL [place], IN CHART WELL. PATIENT PASSED SWALLOW EVAL. ORIENTED IN THE UNIT AND THE USE OF CALL LIGHT. SAFETY IN PLACE-- BED IN LOWEST, LOCKED POSITION, BED RAILS UP X3, CALL LIGHT WITHIN REACH. BED ALARM PUT IN PLACE. PATIENT IS FOR GI CONSULT. WILL FOLLOW THROUGH DOCTOR'S ORDERS AND CONTINUE WITH PATIENT'S PLAN OF CARE.
[2022-10-13] MEDS: IV NS 0.9% 1,000 ML IV SCH (20:43)
[2022-10-13] MEDS: LEVETIRACETAM (250 MG) 250 MG TABLET PO SCH (21:00)
--- NOTE | 2022-10-13 21:00 | NUR ---
noc rn note BP 163/90 upon re-assessment. Given Catapres 0.1 mg as ordered PRN for SBP >150. will reassess.
[2022-10-13 22:00] VITALS: BP 142/74
--- NOTE | 2022-10-13 22:00 | NUR ---
noc rn note- BP re-assessment 142/74 hr 72 after Catapres. will cont. to monitor.
[2022-10-14] MEDS: IV NS 0.9% 1,000 ML IV SCH ×2 (06:00→16:04)
--- NOTE | 2022-10-14 06:11 | NUR ---
noc rn note- non-admin sched 0600 am IV NS non-admin. bag still running from last night.
[2022-10-14 06:13] LABS: BASOPHILS % (AUTO) 0.5 % (0.0-2.0); HEMATOCRIT 27 % (39-51); LYMPHOCYTES # (AUTO) 0.6 K/uL (0.8-4.8); LYMPHOCYTES % (AUTO) 11.1 % (20.0-44.0); MEAN CORPUSCULAR HGB CONC 33 g/dl (31.0-36.0); MEAN CORPUSCULAR VOLUME 93 fL (80-96); MONOCYTES # (AUTO) 0.4 K/uL (0.1-1.30); MONOCYTES % (AUTO) 7.5 % (2.0-12.0); NEUTROPHILS # (AUTO) 4.2 K/uL (1.8-8.9); NEUTROPHILS % (AUTO) 78.9 % (43.0-81.0); PLATELET COUNT (AUTO) 200 K/uL (150-450); RED BLOOD CELL COUNT(AUTO) 2.91 MIL/uL (4.5-6.0); WHITE BLOOD COUNT (AUTO) 5.3 K/uL (4.3-11.0)
[2022-10-14 06:28] LABS: CALCIUM, SERUM 7.8 mg/dL (8.5-10.1); CARBON DIOXIDE 19 mmol/L (21-32); CHLORIDE 111 mmol/L (98-107); CREATININE 2.3 mg/dL (0.6-1.3); GLUCOSE 102 mg/dL (74-106); MAGNESIUM 2.3 mg/dL (1.8-2.4); PHOSPHORUS 4.1 mg/dL (2.5-4.9); POTASSIUM 3.6 mmol/L (3.5-5.1); SODIUM SERUM 142 mmol/L (136-145); UREA NITROGEN, BLOOD 71 mg/dL (7-18)
[2022-10-14 07:00] VITALS: BP_SYST 161; BP_SYST 91; BP_DIAS 161; BP_DIAS 91
--- NOTE | 2022-10-14 07:20 | NUR ---
MS RN OPENING NOTE RECEIVED PATIENT IN BED, AWAKE AND VERBALLY RESPONSIVE. A/O X2. NO SOB OR DISTRESS NOTED, PT HAS HAS LEFT UPPER ARM MIDLINE INFUSING WITH NS AT 100 ML/HR. SAFETY MEASURES IN PLACE. BED IN LOCKED AND IN LOW POSITION. SIDE RAILS UP X 2. ADVISED TO USE THE CALL LIGHT WHEN IN NEED OF ASSISTANCE. WILL CONTINUE TO MONITOR THE PATIENT.
--- NOTE | 2022-10-14 07:26 | NUR ---
noc rn closing note needs attended. all scheduled medications administered. endorsed to SHIRA Feng for continuity of care.
[2022-10-14] MEDS: hydrALAZINE HCL 50 MG TABLET PO SCH ×3 (08:14→16:30)
[2022-10-14] MEDS: LEVETIRACETAM (250 MG) 250 MG TABLET PO SCH ×2 (08:15→21:05)
[2022-10-14] MEDS: ESCITALOPRAM OXALATE (10 MG) 10 MG TABLET PO SCH (08:15)
[2022-10-14] MEDS: METOPROLOL SUCCINATE 25 MG TAB.SR.24H PO SCH ×2 (08:15→16:29)
[2022-10-14] MEDS: MEGESTROL ACETATE SUSP 400 MG/10 ML UDC PO SCH (08:16)
[2022-10-14] MEDS: DOCUSATE SODIUM 100 MG CAPSULE PO SCH (08:16)
[2022-10-14] MEDS: NIFEDIPINE XL 60 MG TAB.ER.24 PO SCH (08:19)
--- NOTE | 2022-10-14 14:30 | NUR ---
NPO AFTER MIDNIGHT ORDERED BY FR JESSE KEARNEY MD, TELEPHONE ORDER AT [id number]
[2022-10-14] MEDS: CEFTRIAXONE 1 G in IV D5W 50 ML IV SCH (16:30)
--- NOTE | 2022-10-14 16:50 | NUR ---
PATIENT POSITIVE FOR DVT ON LEFT COMMON & SUPERFICIAL FEMORAL VEIN TO POPLITEAL VEIN. REPORT RECEIVED THRU CALL FROM DOL OF FOCUS ULTRASOUND, TAKEN AT 1327 TODAY. INFORMED
[2022-10-14 16:53] VITALS: BP 135/70
--- NOTE | 2022-10-14 19:28 | NUR ---
MS RN CLOSING NOTE PATIENT IN BED, AWAKE AND VERBALLY RESPONSIVE. A/O X2. NO SOB OR DISTRESS NOTED, PT HAS IV ACCESS ON LEFT FOREARM 20G INFUSING WITH NS AT 100 ML/HR. SAFETY MEASURES IN PLACED. BED IN LOCKED AND IN LOW POSITION. SIDE RAILS UP X 2. CALL LIGHT WITHIN REACHED. WILL ENDORSE TO ONCOMING HAND SPRING FORMER RN FOR ELINA.
[2022-10-14 20:00] VITALS: BP 139/68
--- NOTE | 2022-10-14 20:00 | NUR ---
RECEIVED PATIENT IN BED, ALERT AND ORIENTED X2, STABLE ON ROOM AIR, LETHARGIC, NO COMPLAIN OF PAIN, ABLE TO MAKE NEEDS KNOWN, POOR ORAL INTAKE, ABLE TO SWALLOW MEDICATIONS WHOLE, ASPIRATION PRECAUTION. LEFT FOOT SWOLLEN, KEPT SAFE, CALL LIGHT WITHIN REACH. WILL CONTINUE TO MONITOR.
[2022-10-14] MEDS: ENOXAPARIN SODIUM 80 MG/0.8 ML DISP.SYRIN SQ SCH (21:00)
[2022-10-15] MEDS: IV NS 0.9% 1,000 ML IV SCH ×2 (01:49→12:06)
--- NOTE | 2022-10-15 05:50 | NUR ---
ALERT/ORIENTED X2, STABLE ON ROOM AIR, NO COMPLAIN OF PAIN, ABLE TO MAKE NEEDS KNOWN, LETHARGIC, NO APPETITE, WANTS TO DRINK ONLY, NPO SINCE AFTER MIDNIGHT, LOVENOX HELD PER DR. KEARNEY. NO SCHEDULE YET AND NO OFFICIAL ORDER FOR PEG TUBE PLACEMENT. DPOA JANNY WILL SIGN CONSENT. SACRAL STAGE 2 PROTECTED WITH MEPILEX, KEPT DRY AND CLEAN. LEFT LEG EDEMA, DVT +, OFFLOADED WITH PILLOW. KEPT SAFE, CALL LIGHT WITHIN REACH.
[2022-10-15 07:00] VITALS: BP 123/63
--- NOTE | 2022-10-15 07:25 | NUR ---
RN OPENING NOTE RECEIVED PATIENT IN BED, AWAKE, NO SIGNS OF ACUTE DISTRESS NOTED. ON ROOM AIR, TOLERATING WELL. BREATHING EVEN AND UNLABORED. DENIES ANY PAIN AT THIS TIME. ON NPO FOR G-TUBE PLACEMENT. NOTED WITH MIDLINE ON LEFT UPPER ARM, INTACT AND PATENT, SALINE LOCKED. SAFETY MEASURE IN PLACE. BED IN LOW AND LOCKED POSITION, SIDE RAILS UP X2, CALL LIGHT PLACED WITHIN EASY REACH. WILL CONTINUE TO MONITOR PATIENT. Addendum: 10/15/22 at 0912 by RORO NAYLOR RN *PATIENT ON IVF OF NS RUNNING 100 ML/HR.
[2022-10-15] MEDS: LEVETIRACETAM (250 MG) 250 MG TABLET PO SCH ×2 (08:47→21:21)
[2022-10-15] MEDS: DOCUSATE SODIUM 100 MG CAPSULE PO SCH (08:47)
[2022-10-15] MEDS: ESCITALOPRAM OXALATE (10 MG) 10 MG TABLET PO SCH (08:47)
[2022-10-15] MEDS: MEGESTROL ACETATE SUSP 400 MG/10 ML UDC PO SCH (08:47)
[2022-10-15] MEDS: hydrALAZINE HCL 50 MG TABLET PO SCH ×3 (08:47→16:34)
[2022-10-15] MEDS: METOPROLOL SUCCINATE 25 MG TAB.SR.24H PO SCH ×2 (08:48→16:34)
[2022-10-15] MEDS: NIFEDIPINE XL 60 MG TAB.ER.24 PO SCH (08:48)
[2022-10-15] MEDS: ACETAMINOPHEN 325 MG TABLET PO PRN (11:22)
[2022-10-15] MEDS: TOBRAMYCIN/DEXAMETH OPHTH DORPS 2.5 ML BOTTLE LEFTEYE SCH ×2 (13:01→17:08)
--- NOTE | 2022-10-15 14:10 | NUR ---
RN NOTE PATIENT PICKED UP FOR PEG PLACEMENT.
--- NOTE | 2022-10-15 14:35 | NUR ---
RN NOTE HYDRAULIC RUBBISH COMPACTOR MECHANIC NOTIFIED THE SENIOR STORAGE ADMINISTRATOR THAT PATIENT HAS LARGE AMOUNT OF URINE IN THE BLADDER >100ML. AVILA LANDAVERDE DNP MADE AWARE. WITH NEW ORDER TO DO IN AND CATHETERIZATION [id number]. ORDER NOTED AND CARRIED OUT.
[2022-10-15 15:00] VITALS: BP 129/79
--- NOTE | 2022-10-15 15:00 | NUR ---
RN NOTE PATIENT BACK FROM SURGERY. S/P EGD WITH PEG PLACEMENT BY DR. KEARNEY. PEG SITE CLEAN, NO BLEEDING NOTED. PER MD MAY USE G-TUBE IN AM. VITAL SIGNS TAKEN AND RECORDED. WILL CONTINUE TO MONITOR PATIENT.
[2022-10-15 15:15] VITALS: BP 135/72
[2022-10-15 15:30] VITALS: BP 141/82
[2022-10-15 16:00] VITALS: BP 141/72
--- NOTE | 2022-10-15 16:00 | NUR ---
RN NOTE IN AND OUT CATHETERIZATION DONE. OBTAINED 1500 ML TRUDI COLORED URINE. PATIENT TOLERATED PROCEDURE WELL. WILL CONTINUE TO MONITOR FOR S/SX OF URINARY RETENTION.
[2022-10-15] MEDS: CEFTRIAXONE 1 G in IV D5W 50 ML IV SCH (16:35)
--- NOTE | 2022-10-15 18:40 | NUR ---
RN CLOSING NOTE PATIENT IN BED, ASLEEP, NO SIGNS OF ACUTE DISTRESS NOTED. REMAINS STABLE ON ROOM AIR. BREATHING EVEN AND UNLABORED. S/P G-TUBE PLACEMENT WITH DR. KEARNEY. G-TUBE SITE, NO BLEEDING NOTE. WITH MIDLINE ON LEFT UPPER ARM, INTACT AND PATENT, WITH NS @ 100 ML/HR RUNNING. SAFETY MEASURE MAINTAINED. BED IN LOW AND LOCKED POSITION, SIDE RAILS UP X2, CALL LIGHT PLACED WITHIN EASY REACH. WILL ENDORSE TO NEXT SHIFTY FOR CONTINUITY OF CARE.
--- NOTE | 2022-10-15 19:26 | NUR ---
MS LUCERO INITIAL NOTES Received report from am nurse and checked the patient He's sleeping at this time , breathing even and non-labored without any acute distress noted. IVF NS at 100ml/hr infusing at this time on her NIGHAT patent and intact. His friend at the bedside at this time. Kept him warm and comfortable at all times. Bed in low and lock in position with side rails x2 up . Place call light at reach. Will continue monitoring.
[2022-10-15 20:00] VITALS: BP 136/64
[2022-10-15] MEDS: ENOXAPARIN SODIUM 80 MG/0.8 ML DISP.SYRIN SQ SCH (21:21)
[2022-10-15] MEDS: Z GUARD REMEDY 4 OZ OINT TP PRN (21:36)
--- NOTE | 2022-10-15 22:00 | NUR ---
ms kumari notes Roberta care rendered with the helped of JUAN MIGUEL then Straight cath also done as ordered because pt retaining urine , 750ml urine output noted, Pt denies any pain or any discomfort noted. Kept him warm and comfortable at all times. will continue monitoring. Addendum: 10/16/22 at 0635 by ADRIANA PEÑA LVN IN AND OUT CATH ORDERED
[2022-10-16] MEDS: TOBRAMYCIN/DEXAMETH OPHTH DORPS 2.5 ML BOTTLE LEFTEYE SCH ×4 (00:56→17:29)
[2022-10-16] MEDS: IV NS 0.9% 1,000 ML IV SCH (05:50)
[2022-10-16] MEDS: Z GUARD REMEDY 4 OZ OINT TP PRN (05:55)
--- NOTE | 2022-10-16 06:00 | NUR ---
MS SERVICE CREW SUPERVISOR NOTES Did morning care as well as wound treatment , applied z-guard and opti foam that helped for healing .Noticed pt belly a little distended, straight cath done as ordered, 400 ml urine output noted , urine sample sent for further evaluation , charge nurse aware.
--- NOTE | 2022-10-16 07:15 | NUR ---
MS VMWARE ARCHITECT CLOSING NOTES PT BACK TO SLEEP AFTER MORNING CARE DONE, STABLE THROUGHOUT THE NIGHT. PATIENT TOLERATED LIQUID WELL NO ASPIRATION NOTED. ALL DUE MEDS GIVEN AND ALL NEEDS MET. KEPT HIM WARM AND COMFORTABLE AT ALL TIMES. IVF NS AT 100ML/HR STILL INFUSING . REPOSITION PT FRO COMFORT. BED IN LOW AND LOCK IN POSITION WITH SIDE RAILS X2 UP AND BED ALARM SET FOR PT SAFETY. PLACE CALL LIGHT AT REACH. WILL ENDORSE TO AM NURSE FOR CONTINUITY OF CARE.
--- NOTE | 2022-10-16 07:30 | NUR ---
PT RECEIVED RESTING COMFORTABLY IN BED. NO S/S OR C/O PAIN OR DISTRESS NOTED. SIDE RAILS UP X2, CALL LIGHT LEFT WITHIN REACH. WILL CONTINUE PLAN OF CARE.
[2022-10-16 08:13] VITALS: BP 146/73
[2022-10-16] MEDS: MEGESTROL ACETATE SUSP 400 MG/10 ML UDC PO SCH (08:16)
[2022-10-16] MEDS: LEVETIRACETAM (250 MG) 250 MG TABLET PO SCH (08:18)
[2022-10-16] MEDS: DOCUSATE SODIUM 100 MG CAPSULE PO SCH (08:18)
[2022-10-16] MEDS: hydrALAZINE HCL 50 MG TABLET PO SCH ×3 (08:18→17:27)
[2022-10-16] MEDS: ESCITALOPRAM OXALATE (10 MG) 10 MG TABLET PO SCH (08:21)
[2022-10-16] MEDS: NIFEDIPINE XL 60 MG TAB.ER.24 PO SCH (08:22)
[2022-10-16 08:25] LABS: BILIRUBIN,URINE NEGATIVE (NEGATIVE); COLOR,URINE YELLOW (YELLOW); CREATININE, URINE 59.9 MG/DL (30.0-125.0); LEUKOCYTE ESTERASE ,URINE 2+ (NEGATIVE); NITRITE, URINE NEGATIVE (NEGATIVE); PROTEIN,URINE 2+ mg/dl (NEGATIVE); UGLUCOSE NEGATIVE (NEGATIVE)
--- NOTE | 2022-10-16 08:25 | NUR ---
WOUND CARE CONSULT: PT ADAMANTLY REFUSED TO BE TURNED FOR SKIN ASSESSMENT. PT NOTED TO HAVE EDEMA TO LEFT LOWER LEG AND DRY ABRASION/DISCOLORATION TO RT LOWER LEG, PRESENT ON ADMISSION. ADMISSION PHOTO AND NURSING DOCUMENTATION INDICATES SACRAL DEEP TISSUE INJURY IN EVOLUTION, PRESENT ON ADMISSION. DR LANIER CALLED FOR SURGICAL CONSULT. DISCUSSED SKIN PROTECTION AND WOUND CARE RECOMMENDATIONS WITH NURSING STAFF. MD IN AGREEMENT WITH PLAN OF CARE.
[2022-10-16] MEDS: METOPROLOL SUCCINATE 25 MG TAB.SR.24H PO SCH ×2 (08:32→17:27)
[2022-10-16 08:35] LABS: BACTERIA,URINE Moderate /HPF (None Seen); SQUAMOUS EPITHELIAL CELL,UR Rare /HPF (None Seen); WBC,URINE TOO NUMEROUS TO COUN /HPF (0-3)
[2022-10-16] MEDS ORDERED: IV NS 0.9% 1,000 ML IV PRN (08:55)
[2022-10-16 10:00] VITALS: BP 146/73
[2022-10-16] MEDS ORDERED: MERO500V23 IV (12:26)
[2022-10-16] MEDS ORDERED: APIX2.5T PO (14:32)
[2022-10-16] MEDS ORDERED: BETH10TA4 PO (14:32)
[2022-10-16] MEDS: ACETAMINOPHEN 325 MG TABLET PO PRN (14:43)
[2022-10-16 16:01] VITALS: BP 143/68
--- NOTE | 2022-10-16 16:32 | NUR ---
PT RECEIVED RESTING COMFORTABLY IN BED. NO S/S OR C/O PAIN OR DISTRESS NOTED. SIDE RAILS UP X2, CALL LIGHT LEFT WITHIN REACH. WILL CONTINUE PLAN OF CARE. Addendum: 10/16/22 at 1633 by MARÍA JOHNSON RN WRONG TIME
[2022-10-16] MEDS ORDERED: APIXABAN 2.5 MG TABLET PO SCH (17:00)
[2022-10-16 17:27] VITALS: BP 143/68
[2022-10-16] MEDS: CEFTRIAXONE 1 G in IV D5W 50 ML IV SCH (17:29)
--- NOTE | 2022-10-16 18:26 | NUR ---
CHANGE OF SHIFT REPORT PT RESTING COMFORTABLY IN BED. NO S/S OR C/O PAIN OR DISTRESS NOTED. SIDE RAILS UP X2, CALL LIGHT LEFT WITHIN REACH. PT KEPT CLEAN, DRY, AND COMFORTABLE. NO SIGNIFICANT CHANGES SINCE PREVIOUS SHIFT. WILL GIVE REPORT TO YOUSIF SILVA.
--- NOTE | 2022-10-16 19:30 | NUR ---
MS RN OPENING NOTES RECEIVED PATIENT AWAKE IN BED ACCOMPANIED BY FAMILY,. BED IN LOW POSITION CALL LIGHTS WITHIN REACH, NO COMPLAIN OF PAIN AND DISCOMFORT AT THIS TIME, ON ROOM AIR SATURATING WELL, PATIENT IS A/OX2 ABLE TO MAKE NEEDS KNOWN, OBN G TUBE FEEDING OF JEVITY 1.2@ INITIAL OF 30ML/HR INFUSING WELL, PATIENT IS DUE FOR DISCHARGE AWAITING FOR AMBULANCE, KEPT CLEAN AND DRY ALL NEEDS MET WILL CONTINUE TO MONITOR.
--- NOTE | 2022-10-16 19:57 | NUR ---
MS GUEST SERVICE MANAGER NOTES: PATIENT WAS CONTRACT PREPARER BY AMBULANCE FOR DISCHARGE TO SNF, V/S REMAIN STABLE, PATIENT KEPT CLEAN AND DRY , FAMILY AT BEDSIDE, G TUBE FLUID REMOVED FLUSH WITH 200 CC WATER, INTACT AND PATENT, NIGHAT ML NOT REMOVED DUE TO CONTINUITY OF IV ANTIBIOTICS, ENDORSEMENT DONE BY [facility], INVENTORY LIST GIVEN, D/C DOCUMENT TURNOVER PATIENT KEPT CLEAN AND DRY ALL NEEDS MET LEFT THE FLOOR AT 1955 VIA SPENCER ON STABLE CONDITION.
== END 2022-10-16 19:55 | DRG 640 ==
LOC: ER 14:44 → MED 16:28
PROVIDERS: ADMIT Internal Medicine; ATTEND Nurse Practitioner Acute Care
PROC: 05HA33Z Insertion of Infusion Device into Left Brachial Vein, Percutaneous Approach (ICD-10-PCS; 2022-10-13)
PROC: 0DH63UZ Insertion of Feeding Device into Stomach, Percutaneous Approach (ICD-10-PCS; principal; 2022-10-15)
DX: R62.7 Adult failure to thrive (principal); E43 Unspecified severe protein-calorie malnutrition; G93.41 Metabolic encephalopathy; N17.0 Acute kidney failure with tubular necrosis; N39.0 Urinary tract infection, site not specified; I82.402 Acute embolism and thrombosis of unspecified deep veins of left lower extremity; Z20.822 Contact with and (suspected) exposure to COVID-19; E78.5 Hyperlipidemia, unspecified; F32.A Depression, unspecified; Z88.6 Allergy status to analgesic agent; Z79.899 Other long term (current) drug therapy; Z79.02 Long term (current) use of antithrombotics/antiplatelets; G40.909 Epilepsy, unspecified, not intractable, without status epilepticus; I25.10 Atherosclerotic heart disease of native coronary artery without angina pectoris; E86.0 Dehydration; Z86.73 Personal history of transient ischemic attack (TIA), and cerebral infarction without residual deficits; E88.09 Other disorders of plasma-protein metabolism, not elsewhere classified; I10 Essential (primary) hypertension; K29.70 Gastritis, unspecified, without bleeding; F03.90 Unspecified dementia, unspecified severity, without behavioral disturbance, psychotic disturbance, mood disturbance, and anxiety; E87.6 Hypokalemia; R13.10 Dysphagia, unspecified; L89.156 Pressure-induced deep tissue damage of sacral region; R19.00 Intra-abdominal and pelvic swelling, mass and lump, unspecified site; N13.9 Obstructive and reflux uropathy, unspecified; N31.9 Neuromuscular dysfunction of bladder, unspecified
CPT/HCPCS: 36415; 43246; 76770-TC; 80048-TC; 80076-TC; 81001; 82570-TC; 82962-TC; 83605-TC; 83690-TC; 83735-TC; 84100-TC; 84300-TC; 84443-TC; 84484-TC; 85025-TC; 85730-TC; 87081-TC; 87086-TC; 93971-TC; A4223; C9803; G0378; J0690; J0696; J1650; J7030; J7060

== ENCOUNTER 2022-11-08 17:41 | Inpatient (IN) | payer MEDICARE, BC ==
[~2022-11-08] VITALS: Ht 177.8 cm; Wt 83.5 kg
[~2022-11-08 17:41] MED LIST changes: +ACET-868 PO; +AMIN30LI2 PO; +APIX2.5T PO; +BETH10TA4 PO; +BISA10SU11 RC; +CRAN425C6 PO; +DOCU-141 PO; +MAG30ORA PO; +MAGN400O6 PO; +MEGE400O6 PO; +MERO500V23 IV; +NA P133E RC; -NIFE-35 PO; +NIFE60TA2 PO; +TRAM50TA2 PO
--- NOTE | 2022-11-08 17:45 | NUR ---
RECEVED PT 82 YRS MALE TRANSFER FROM SNF FOR LOW H&H DINESES ACTIVE BLEEDING A&A X1
--- NOTE | 2022-11-08 18:00 | NUR ---
SEEN BY DR. DAN
[2022-11-08] MEDS ORDERED: ACET-868 PO (18:02)
[2022-11-08] MEDS ORDERED: MULT-447 PO (18:02)
[2022-11-08] MEDS ORDERED: ASCO-352 PO (18:02)
[2022-11-08] MEDS ORDERED: NUTR250L50 GT (18:02)
[2022-11-08] MEDS ORDERED: APIX2.5T PO (18:02)
[2022-11-08] MEDS ORDERED: ZINC50TA69 PO (18:02)
[2022-11-08] MEDS ORDERED: BETH10TA4 PO (18:02)
--- NOTE | 2022-11-08 18:05 | NUR ---
INSERTED ANGO CATHETER G 18 BLOOD DROW AND SENT TO LAB BLOOD T&C SENT TO LAB
--- NOTE | 2022-11-08 18:10 | NUR ---
BLADDER SCAN 999 ML
--- NOTE | 2022-11-08 18:30 | NUR ---
INSERTED FC FR 16 WITH 10 ML BILLON DARINE 1700ML COUDY YELLOW COLOR UA SENT TO LAB
--- NOTE | 2022-11-08 18:39 | NUR ---
MOVE SHEET SUBMITTED.
--- NOTE | 2022-11-08 18:40 | NUR ---
UA SENT TO LAB
[2022-11-08 19:00] LABS: CALCIUM, SERUM 7.8 mg/dL (8.5-10.1); CREATININE 1.1 mg/dL (0.6-1.3)
[2022-11-08 19:15] LABS: ALBUMIN 1.7 g/dL (3.4-5.0); BILIRUBIN,DIRECT 0.1 mg/dL (0.0-0.2); BILIRUBIN,TOTAL 0.3 mg/dL (0.2-1.0); TOTAL PROTEIN, SERUM 5.5 g/dL (6.4-8.2)
--- NOTE | 2022-11-08 19:28 | NUR ---
PT HAD BM LARGE AMT BROWNISH COLOR
--- NOTE | 2022-11-08 19:29 | NUR ---
COVID AND MRSA SWAB SENT TO LAB
--- NOTE | 2022-11-08 19:30 | NUR ---
Pt is noted in bed responsive but forgetful as report is received from the off going nurse that Pt came from a SNF , sent by i PMD for abdnormal LAB h/h OFF 6.0/17.7 and Jiang cath 16Fr inserted here in the ED. Pt care continue as awaits bed as he is been admitted .
--- NOTE | 2022-11-08 19:32 | NUR ---
HAND OFF DIDIER SILVA
[2022-11-08 19:34] LABS: BILIRUBIN,URINE NEGATIVE (NEGATIVE); COLOR,URINE YELLOW (YELLOW); LEUKOCYTE ESTERASE ,URINE NEGATIVE (NEGATIVE); NITRITE, URINE NEGATIVE (NEGATIVE); PH,URINE 7.5 (5.0-8.0); PROTEIN,URINE NEGATIVE (NEGATIVE); UGLUCOSE NEGATIVE (NEGATIVE); UROBILINOGEN,URINE 0.2 EU/dL (0.2)
[2022-11-08 20:09] LABS: BASOPHILS % (AUTO) 0.3 % (0.0-2.0); EOSINOPHILS % (AUTO) 3.1 % (0.0-6.0); LYMPHOCYTES # (AUTO) 1.1 K/uL (0.8-4.8); LYMPHOCYTES % (AUTO) 29.8 % (20.0-44.0); MEAN CORPUSCULAR HGB CONC 33 g/dl (31.0-36.0); MEAN CORPUSCULAR VOLUME 93 fL (80-96); MONOCYTES # (AUTO) 0.4 K/uL (0.1-1.30); MONOCYTES % (AUTO) 11.3 % (2.0-12.0); NEUTROPHILS % (AUTO) 55.5 % (43.0-81.0); PLATELET COUNT (AUTO) 192 K/uL (150-450); WHITE BLOOD COUNT (AUTO) 3.6 K/uL (4.3-11.0)
[2022-11-08 20:13] LABS: RED BLOOD CELL COUNT(AUTO) 1.98 MIL/uL (4.5-6.0)
[2022-11-08 20:14] LABS: HEMOGLOBIN 6.1 g/dL (13.5-17.5)
[2022-11-08 20:15] LABS: HEMATOCRIT 19 % (39-51)
--- NOTE | 2022-11-08 20:25 | NUR ---
CRITICAL LAB HGB 6.1 HCT 19
--- NOTE | 2022-11-08 21:08 | NUR ---
Pt care continue with Blood consent signed after spoken with son Geremias Rogers at [phone]. Pt care continue as awaist bed for Admission.
--- NOTE | 2022-11-08 21:17 | NUR ---
Pt care continue as report is given to 3RD Floor RN Bozena Tiwari and Pt is going to Room 324- Tele. Pt care continue.
[2022-11-08] MEDS ORDERED: ZOLPIDEM TARTRATE 5 MG TABLET PO PRN (21:30)
[2022-11-08] MEDS ORDERED: MAGNESIUM HYDROXIDE 30 ML UDC PO PRN ×2 (21:30)
[2022-11-08] MEDS ORDERED: ONDANSETRON HCL/PF 4 MG/2 ML VIAL IVP PRN (21:30)
[2022-11-08] MEDS ORDERED: Z GUARD REMEDY 4 OZ OINT TP PRN (21:30)
[2022-11-08] MEDS ORDERED: ACETAMINOPHEN 325 MG TABLET PO PRN ×2 (21:30)
[2022-11-08] MEDS ORDERED: MAG HYDROX/AL HYDROX/SIMETH 30 ML UDC PO PRN ×2 (21:30)
[2022-11-08] MEDS ORDERED: NA PHOS,M-B/NA PHOS,DI-BA 1 EA ENEMA RC PRN (21:30)
[2022-11-08] MEDS ORDERED: CLONIDINE HCL 0.1 MG TABLET PO PRN (21:30)
[2022-11-08] MEDS ORDERED: BISACODYL SUPP (10 MG) 10 MG/SUPP.RECT SUPP.RECT RC PRN (21:30)
--- NOTE | 2022-11-08 21:56 | NUR ---
Pt care contiinue as he is off the unit to 3rd floor Room 324-2.
--- NOTE | 2022-11-08 22:00 | NUR ---
TYPESETTING SUPERVISOR NOTE RECEIVED REPORT FROM NURSE [place] OF ED @2111. RECEIVED PT ON A GURNEY TO BED. PT IS WITH TOWN CLERK. A/O X 2-3, PT IS FORGETFUL BUT ABLE TO MAKE NEEDS KNOWN. ORIENTED TO STAFF AND UNIT. PT IS IN RA TOLERATING WELL, BREATHING EVEN AND UNLABORED. PT OCCASIONALLY COUGH. PT IV PRESENT ON LFA #18G, PATENT, INTACT AND FLUSHES WELL W/ NO S & SX OF INFILTRATION. PT G-TUBE IN PLACE AND INTACT. PT CHARLES CATHETER IS IN PLACE DRAINING RED COLORED URINE. SKIN IS WARM AND DRY. PHOTOS OF THE BUTTOCK IS TAKEN AND FILED ON PT CHART. PT BELONGINGS ARE ALL ACCOUNTED FOR AND FILED IN THE CHART. ALL NEEDS ATTENDED. SAFETY MEASURES IS INITIATED. BED AT ITS LOWEST AND LOCKED POSITION. SIDE RAILS UP X 2. BEDSIDE TABLE AND CALL LIGHT IS EASY REACH. BED ALARM IS ON. WILL CONTINUE TO MONITOR PT ACCORDINGLY.
[2022-11-09] VITALS (9 sets, daily range): BP systolic 100–175; BP diastolic 52–83
[2022-11-09 03:51] LABS: NEUTROPHILS % (MANUAL) 59 (42-76)
[2022-11-09 03:52] LABS: BASOPHILS % (MANUAL) 0 % (0.0-2.0); EOSINOPHILS % (MANUAL) 2 % (0-4); LYMPHOCYTES % (MANUAL) 27 % (16-48); MONOCYTES % (MANUAL) 12 % (0-11.0)
[2022-11-09 06:28] LABS: BASOPHILS % (AUTO) 0.6 % (0.0-2.0); EOSINOPHILS % (AUTO) 3.3 % (0.0-6.0); HEMATOCRIT 23 % (39-51); HEMOGLOBIN 7.7 g/dL (13.5-17.5); LYMPHOCYTES # (AUTO) 1.2 K/uL (0.8-4.8); LYMPHOCYTES % (AUTO) 28.9 % (20.0-44.0); MEAN CORPUSCULAR HGB CONC 34 g/dl (31.0-36.0); MEAN CORPUSCULAR VOLUME 90 fL (80-96); MONOCYTES # (AUTO) 0.4 K/uL (0.1-1.30); NEUTROPHILS # (AUTO) 2.3 K/uL (1.8-8.9); NEUTROPHILS % (AUTO) 57.2 % (43.0-81.0); PLATELET COUNT (AUTO) 190 K/uL (150-450); RED BLOOD CELL COUNT(AUTO) 2.56 MIL/uL (4.5-6.0); WHITE BLOOD COUNT (AUTO) 4.1 K/uL (4.3-11.0)
--- NOTE | 2022-11-09 06:35 | NUR ---
RN CLOSING NOTE PT DOZING INTERMITTENTLY, RESTING COMFORTABLY IN BED. A/O X 2-3, RESPONSIVE AND FOLLOWS VERBAL COMMAND.PT IS IN RA W/ NO S&SX RESPIRATORY DISTESS NOTED @ THIS TIME. PT OCCASIONALLY COUGH. PT IV PRESENT ON LFA #18G, PATENT, INTACT AND FLUSHES WELL W/ NO S & SX OF INFILTRATION. PT G-TUBE IN PLACE AND INTACT. PT CHARLES CATHETER IS IN PLACE DRAINING RED COLORED URINE, URINE OUTPUT 1500CC. PT SHOW NO ADVERSE REACTION POST BLOOD TRANSFUSION @ 0356.SAFETY MEASURES IS INITIATED. BED AT ITS LOWEST AND LOCKED POSITION. SIDE RAILS UP X 2. BEDSIDE TABLE AND CALL LIGHT IS EASY REACH. BED ALARM IS ON. WILL ENDORSE PT TO THE NEXT SHIFT FOR CONTINUITY OF CARE.
[2022-11-09 07:04] LABS: CARBON DIOXIDE 24 mmol/L (21-32); CHLORIDE 106 mmol/L (98-107); POTASSIUM 4.1 mmol/L (3.5-5.1); SODIUM SERUM 139 mmol/L (136-145)
[2022-11-09 07:05] LABS: CALCIUM, SERUM 7.8 mg/dL (8.5-10.1); GLUCOSE 84 mg/dL (74-106); MAGNESIUM 1.8 mg/dL (1.8-2.4); UREA NITROGEN, BLOOD 32 mg/dL (7-18)
[2022-11-09] MEDS ORDERED: Medication Not On Formulary EA (Cranberry Extract (Cranberry) 850 MG) PO SCH (09:00)
[2022-11-09] MEDS ORDERED: DOCUSATE SODIUM 100 MG CAPSULE PO SCH (09:00)
[2022-11-09] MEDS ORDERED: ESCITALOPRAM OXALATE (10 MG) 10 MG TABLET PO SCH (09:00)
[2022-11-09] MEDS ORDERED: ACETAMINOPHEN 325 MG TABLET PO SCH (09:00)
[2022-11-09] MEDS ORDERED: NIFEDIPINE XL 60 MG TAB.ER.24 PO SCH (09:00)
[2022-11-09] MEDS ORDERED: LEVETIRACETAM (250 MG) 250 MG TABLET PO SCH (09:00)
[2022-11-09] MEDS: hydrALAZINE HCL 50 MG TABLET PO SCH ×3 (09:42→17:00)
[2022-11-09] MEDS: BETHANECHOL CHLORIDE (10 MG) 10 MG TABLET PO SCH ×3 (09:43→17:23)
[2022-11-09] MEDS: METOPROLOL SUCCINATE 25 MG TAB.SR.24H PO SCH ×2 (09:43→17:00)
[2022-11-09] MEDS: PANTOPRAZOLE 40 MG VIAL IV SCH ×2 (09:44→21:16)
[2022-11-09] MEDS: PROSOURCE / PROSTAT (PYXIS) 30 ML UDC PO SCH ×2 (09:48→17:25)
[2022-11-09 13:10] LABS: IRON, SERUM 44 ug/dl (50-175); TOTAL IRON BINDING CAPACITY 150 ug/dl (250-450)
[2022-11-09 13:22] LABS: FERRITIN 499 ng/mL (8-388)
[2022-11-09] MEDS ORDERED: ZINC SULFATE 220 MG CAPSULE PO SCH (18:00)
[2022-11-09] MEDS ORDERED: ASCORBIC ACID 500 MG TABLET PO SCH (18:00)
[2022-11-09] MEDS ORDERED: MULTIVIT W/MINERALS 1 TAB TABLET PO SCH (18:00)
--- NOTE | 2022-11-09 18:44 | NUR ---
END OF SHIFT SUMMARY PATIENT IS A/O X2-3. H/H IMPROVED. CHARLES CATHETER IN PLACE, DRAINING WELL TO GRAVITY, 1.7L PRESENCE OF HEMATURIA. DR LANDAVERDE WAS AWARE. INITIATED G TUBE FEEDING. STARTED AT 20 ML/HR, WITH ORDER TO INCREASE FROM 10-15 ML/HR X 4 HRS. WOUND CONSULT HAS BEEN ORDERED. REPOSITIONED EVERY 2 HRS FOR COMFORT. SAFETY MEASURES MAINTAINED. BED IN LOWEST POSITION, BRAKES LOCKED. SIDE RAILS UP X2. CALL LIGHT WITHIN REACH. WILL ENDORSE CONTINUITY OF CARE TO ONCOMING SHIFT.
[2022-11-09] MEDS ORDERED: CLONIDINE HCL 0.1 MG TABLET GT PRN (19:26)
[2022-11-09] MEDS ORDERED: MAG HYDROX/AL HYDROX/SIMETH 30 ML UDC GT PRN (19:28)
[2022-11-09] MEDS ORDERED: MAGNESIUM HYDROXIDE 30 ML UDC GT PRN (19:28)
[2022-11-09] MEDS ORDERED: ZOLPIDEM TARTRATE 5 MG TABLET GT PRN (19:29)
[2022-11-09] MEDS ORDERED: PHARMACY TO CHANGE PO MEDS TO GT/NG XX PRN (19:30)
[2022-11-09] MEDS ORDERED: ACETAMINOPHEN 650 MG/20.3 ML UDC GT PRN (19:30)
[2022-11-09] MEDS ORDERED: ACETAMINOPHEN 650 MG/20.3 ML UDC PO PRN (19:30)
--- NOTE | 2022-11-09 19:30 | NUR ---
MS RN OPENING NOTES - RECEIVED PATIENT SLEEPING, OPENS EYES TO VERBAL AND TACTILE STIMULI. LETHARGIC, DOES NOT ANSWER QUESTIONS. BREATHING EVEN AND NON-LABORED ON ROOM AIR. NOT IN APPARENT DISTRESS. NO S/S OF PAIN OR DISCOMFORT NOTED. HAS LEFT WRIST IV ACCESS #18G WITH NS RUNNING AT 100 ML/HR. NO S/S OF INFILTRATION NOTED. HAS G-TUBE FEEDING OF JEVITY RUNNING AT 20 ML/HR. HAS INDWELLING CHARLES CATHETER DRAINING HEMATURIA TO BAG BY GRAVITY. SAFETY PRECAUTIONS IN PLACE: BED LOCKED AND IN LOW POSITION, SIDE RAILS UP X3, CALL LIGHT WITHIN REACH. WILL CONTINUE PLAN OF CARE.
[2022-11-09] MEDS: LEVETIRACETAM SOL (5 ML) 100 MG/ML UDC GT SCH (21:16)
[2022-11-09] MEDS: ATORVASTATIN 40 MG TABLET GT SCH (21:16)
--- NOTE | 2022-11-09 21:30 | NUR ---
PATIENT AWAKE AND MORE ALERT. ORIENTED TO PERSON ONLY.
[2022-11-09] MEDS: JEVITY 1.2 CAL 1,000 ML BOTTLE GT PRN (22:00)
[2022-11-09] MEDS: IV NS 0.9% 1,000 ML IV PRN (22:00)
--- NOTE | 2022-11-09 23:00 | NUR ---
TUBE FEEDING STARTED BY JAC SILVA AT 1900 BUT WAS NOT SCANNED IN EMAR. UPDATED TO REFLECT THAT PATIENT IS RECEIVING TUBE FEEDING. RESIDUAL IS 2 ML, TOLERATING WELL. INCREASED RATE TO 35 ML. Addendum: 11/10/22 at 0311 by January JEY SILVA NO RESIDUAL AFTER 4 HOURS, INCREASED FEEDING RATE TO 50 ML/HR.
--- NOTE | 2022-11-10 00:43 | NUR ---
REFUSED TO BE TURNED. EXPLAINED HE HAS SACRAL WOUND AND REPOSITIONING WILL PREVENT IT FROM GETTING WORSE. STILL REFUSED AND VERBALIZED THAT HE IS IN THE RIGHT POSITION. WILL ATTEMPT AGAIN LATER.
[2022-11-10 05:57] LABS: BASOPHILS % (AUTO) 0.4 % (0.0-2.0); EOSINOPHILS % (AUTO) 3.3 % (0.0-6.0); HEMATOCRIT 22 % (39-51); HEMOGLOBIN 7.2 g/dL (13.5-17.5); LYMPHOCYTES # (AUTO) 1.2 K/uL (0.8-4.8); LYMPHOCYTES % (AUTO) 31.4 % (20.0-44.0); MEAN CORPUSCULAR HGB CONC 33 g/dl (31.0-36.0); MEAN CORPUSCULAR VOLUME 90 fL (80-96); MONOCYTES # (AUTO) 0.4 K/uL (0.1-1.30); MONOCYTES % (AUTO) 10.6 % (2.0-12.0); NEUTROPHILS # (AUTO) 2.1 K/uL (1.8-8.9); NEUTROPHILS % (AUTO) 54.3 % (43.0-81.0); PLATELET COUNT (AUTO) 184 K/uL (150-450); RED BLOOD CELL COUNT(AUTO) 2.44 MIL/uL (4.5-6.0)
[2022-11-10 06:32] LABS: OCCULT BLOOD STOOL POSITIVE (NEGATIVE)
[2022-11-10 06:33] LABS: CALCIUM, SERUM 7.5 mg/dL (8.5-10.1); CARBON DIOXIDE 25 mmol/L (21-32); CHLORIDE 107 mmol/L (98-107); CREATININE 0.9 mg/dL (0.6-1.3); GLUCOSE 116 mg/dL (74-106); MAGNESIUM 1.6 mg/dL (1.8-2.4); PHOSPHORUS 4.7 mg/dL (2.5-4.9); POTASSIUM 3.5 mmol/L (3.5-5.1); SODIUM SERUM 140 mmol/L (136-145); UREA NITROGEN, BLOOD 34 mg/dL (7-18)
--- NOTE | 2022-11-10 06:59 | NUR ---
MS SILVA CLOSING NOTES - PATIENT SLEEPING, EASY TO AROUSE. ABLE TO VERBALIZE NEEDS. PERIODS OF CONFUSION NOTED. NO SOB OR , TOLERATING ROOM AIR WELL. NO ACUTE DISTRESS THROUGHOUT THE NIGHT. DENIES PAIN BUT SCREAMS WHEN BEING MOVED. AFEBRILE. LEFT WRIST IV ACCESS INTACT, PATENT AND FLUSHING. ALL DUE MEDS GIVEN AND NEEDS ATTENDED. HEMATURIA STILL NOTED. PERINEAL CARE RENDERED. TURNED AND OFFLOADED BUTTOCKS, ARMS AND LOWER EXTREMITIES. SAFETY PRECAUTIONS MAINTAINED. WILL ENDORSE TO NEXT SHIFT FOR ELINA. Addendum: 11/10/22 at 0723 by January JEY SILVA G-TUBE FLUSHED AND IRRIGATED. FEEDING CURRENTLY AT 65 ML/HR. NO RESIDUAL NOTED.
--- NOTE | 2022-11-10 07:45 | NUR ---
MS RN OPENING NOTES PATIENT SLEEPING, EASY TO AROUSE. ABLE TO VERBALIZE NEEDS. PERIODS OF CONFUSION NOTED. NO SOB OR , TOLERATING ROOM AIR WELL. DENIES PAIN AT THIS TIME. AFEBRILE. LEFT WRIST IV ACCESS INTACT, PATENT AND FLUSHING. HEMATURIA STILL NOTED, NOTIFIED AVILA LANDAVERDE STEFFEN HOUSE SUPERVISOR WITH NEW ORDER OF CBT. SAFETY PRECAUTIONS MAINTAINED. WILL CONTINUE TO MONITOR.
[2022-11-10 08:00] VITALS: BP 152/81
[2022-11-10] MEDS: Magnesium 1GM/D5W 100ML PREMIX 100 ML IV SCH ×4 (08:41→12:04)
[2022-11-10] MEDS: LEVETIRACETAM SOL (5 ML) 100 MG/ML UDC GT SCH ×2 (08:45→21:31)
[2022-11-10] MEDS: hydrALAZINE HCL 50 MG TABLET GT SCH ×3 (08:46→17:17)
[2022-11-10] MEDS: DOCUSATE SODIUM LIQ 100 MG/10 ML UDC GT SCH (08:46)
[2022-11-10] MEDS: BETHANECHOL CHLORIDE (10 MG) 10 MG TABLET GT SCH ×3 (08:46→17:17)
[2022-11-10] MEDS: ESCITALOPRAM OXALATE (10 MG) 10 MG TABLET GT SCH (08:47)
--- NOTE | 2022-11-10 08:47 | NUR ---
WOUND CARE CONSULT: PT ADAMANTLY REFUSED SKIN ASSESSMENT. REVIEWED CHART, NURSING DOCUMENTATION AND PHOTOS WHICH INDICATE RT ARM SKIN TEAR AND SACRAL STAGE 3 PRESSURE ULCER, PRESENT ON ADMISSION. DR LANIER CALLED FOR SURGICAL CONSULT. DISCUSSED SKIN PROTECTION RECOMMENDATIONS WITH NURSING STAFF. FIRST STEP LOW AIRLOSS MATTRESS IS ON ORDER. MD IN AGREEMENT WITH PLAN OF CARE.
[2022-11-10] MEDS: METOPROLOL SUCCINATE 25 MG TAB.SR.24H GT SCH ×2 (08:48→17:18)
[2022-11-10] MEDS: IV NS 0.9% 1,000 ML IV PRN (08:48)
[2022-11-10] MEDS: DILTIAZEM HCL 30 MG TABLET GT SCH (08:48)
[2022-11-10] MEDS: ACETAMINOPHEN 650 MG/20.3 ML UDC GT SCH (08:48)
[2022-11-10] MEDS: PROSOURCE / PROSTAT (PYXIS) 30 ML UDC GT SCH ×2 (08:53→17:31)
[2022-11-10] MEDS: PANTOPRAZOLE 40 MG VIAL IV SCH ×2 (09:10→21:31)
[2022-11-10] MEDS: JEVITY 1.2 CAL 1,000 ML BOTTLE GT PRN (15:34)
[2022-11-10 16:00] VITALS: BP 131/66
[2022-11-10] MEDS: ZINC SULFATE 220 MG CAPSULE GT SCH (17:17)
[2022-11-10] MEDS: MULTIVIT W/MINERALS 1 TAB TABLET GT SCH (17:17)
[2022-11-10] MEDS: ASCORBIC ACID 500 MG TABLET GT SCH (17:18)
--- NOTE | 2022-11-10 19:30 | NUR ---
MS RN OPENING NOTE RECEIVED PT AWAKE IN BED. A/O X1-2 AND ABLE TO MAKE NEEDS KNOWN. PT STABLE ON ROOM AIR. NO SOB OR S/S OF RESPIRATORY DISTRESS. BREATHING EVEN AND UNLABORED. IV ACCESS L WRIST 18G AND R HAND 18G, INTACT AND PATENT, RUNNING NS @ 100 ML/HR. WITH GTUBE RUNNING JEVITY @ 80 ML/HR, TOLERATING WELL. WITH CHARLES CATHETER WITH CONTINUOUS BLADDER IRRIGATION DRAINING URINE BY GRAVITY. SAFETY PRECAUTIONS IN PLACE. BED IN LOWEST LOCKED POSITION, HOB ELEVATED, SIDE RAILS UP X3, AND CALL LIGHT AND TABLE WITHIN REACH. ALL NEEDS MET AT THIS TIME.
--- NOTE | 2022-11-10 19:31 | NUR ---
MS RN CLOSING NOTES PATIENT SLEEPING, EASY TO AROUSE. ABLE TO VERBALIZE NEEDS. PERIODS OF CONFUSION NOTED. NO SOB OR , TOLERATING ROOM AIR WELL. DENIES PAIN AT THIS TIME. AFEBRILE. RIGHT HAND G. 18 ACCESS INTACT, PATENT AND FLUSHING. HEMATURIA STILL NOTED. SAFETY PRECAUTIONS MAINTAINED. WILL ENDORSED TO NEXT NURSE.
--- NOTE | 2022-11-10 19:56 | NUR ---
rn notes Total CBI irrigating solution given to patient is 3 bags(3L/bag), total ueing output is 6400 still with hematuria. endorsed to next next.
[2022-11-10 20:00] VITALS: BP 140/70
[2022-11-10] MEDS: ATORVASTATIN 40 MG TABLET GT SCH (21:31)
[2022-11-11] MEDS: IV NS 0.9% 1,000 ML IV PRN (03:48)
--- NOTE | 2022-11-11 05:36 | NUR ---
RN NOTE PT REFUSING LABS, BED BATH, AND LINEN CHANGE AT THIS TIME. PT STATED " COME BACK LATER. I WANT TO SLEEP". ATTEMPTED EDUCATION BUT PT REFUSED TO ACKNOWLEDGE.
--- NOTE | 2022-11-11 06:34 | NUR ---
MS RN CLOSING NOTE PT RESTING IN BED, VERBALLY RESPONSIVE. A/O X1-2 AND ABLE TO MAKE NEEDS KNOWN. PT STABLE ON ROOM AIR. NO SOB OR S/S OF RESPIRATORY DISTRESS. BREATHING EVEN AND UNLABORED. IV ACCESS L WRIST 18G AND R HAND 18G, INTACT AND PATENT, RUNNING NS @ 100 ML/HR. WITH GTUBE RUNNING JEVITY @ 90 ML/HR, TOLERATING WELL, NO RESIDUAL. WITH CHARLES CATHETER WITH CONTINUOUS BLADDER IRRIGATION DRAINING CLEAR TRUDI URINE BY GRAVITY, DRAINED 6,900 ML THIS SHIFT. ALL DUE MEDS GIVEN ASA ORDERED. SAFETY PRECAUTIONS IN PLACE AT ALL TIMES. BED IN LOWEST LOCKED POSITION, HOB ELEVATED, SIDE RAILS UP X3, AND CALL LIGHT AND TABLE WITHIN REACH. ALL NEEDS MET AT THIS TIME AND WILL ENDORSE TO ONCOMING NURSE FOR EILNA.
[2022-11-11 07:15] LABS: BASOPHILS % (AUTO) 0.6 % (0.0-2.0); EOSINOPHILS % (AUTO) 4.3 % (0.0-6.0); HEMATOCRIT 23 % (39-51); HEMOGLOBIN 7.7 g/dL (13.5-17.5); LYMPHOCYTES # (AUTO) 1.2 K/uL (0.8-4.8); LYMPHOCYTES % (AUTO) 28.1 % (20.0-44.0); MEAN CORPUSCULAR HGB CONC 33 g/dl (31.0-36.0); MEAN CORPUSCULAR VOLUME 90 fL (80-96); MONOCYTES # (AUTO) 0.5 K/uL (0.1-1.30); MONOCYTES % (AUTO) 11.1 % (2.0-12.0); NEUTROPHILS # (AUTO) 2.4 K/uL (1.8-8.9); NEUTROPHILS % (AUTO) 55.9 % (43.0-81.0); PLATELET COUNT (AUTO) 163 K/uL (150-450); RED BLOOD CELL COUNT(AUTO) 2.59 MIL/uL (4.5-6.0); WHITE BLOOD COUNT (AUTO) 4.4 K/uL (4.3-11.0)
--- NOTE | 2022-11-11 07:32 | NUR ---
MS RN OPENING NOTE Patient in bed, asleep. A/O x 1-2. On room air, breathing evenly and unlabored. No SOB or s/s of distress noted. IV access on Left wrist #18 infusing NS at 100 ml/hr. G-tube in place running Jevity at 90 ml/hr. Jiang catheter in place with CBI draining to an lola colored urine. Safety precautions in place: be din low, locked position; siderails up; call light within reach. Will continue to monitor. Addendum: 11/11/22 at 0806 by CINTHIA BAKER RN ADD: Left arm swelling noted, non-pitting. IV fluids paused. Arm elevated.
[2022-11-11 07:42] LABS: CALCIUM, SERUM 7.5 mg/dL (8.5-10.1); CARBON DIOXIDE 23 mmol/L (21-32); CHLORIDE 108 mmol/L (98-107); GLUCOSE 102 mg/dL (74-106); MAGNESIUM 1.9 mg/dL (1.8-2.4); PHOSPHORUS 4.1 mg/dL (2.5-4.9); POTASSIUM 3.6 mmol/L (3.5-5.1); SODIUM SERUM 139 mmol/L (136-145); UREA NITROGEN, BLOOD 26 mg/dL (7-18)
[2022-11-11] MEDS: JEVITY 1.2 CAL 1,000 ML BOTTLE GT PRN (07:50)
[2022-11-11 08:00] VITALS: BP 152/76
[2022-11-11] MEDS: LEVETIRACETAM SOL (5 ML) 100 MG/ML UDC GT SCH ×2 (09:04→21:07)
[2022-11-11] MEDS: PANTOPRAZOLE 40 MG VIAL IV SCH ×2 (09:04→21:07)
[2022-11-11] MEDS: ACETAMINOPHEN 650 MG/20.3 ML UDC GT SCH (09:04)
[2022-11-11] MEDS: DOCUSATE SODIUM LIQ 100 MG/10 ML UDC GT SCH (09:04)
[2022-11-11] MEDS: METOPROLOL SUCCINATE 25 MG TAB.SR.24H GT SCH ×2 (09:05→17:08)
[2022-11-11] MEDS: BETHANECHOL CHLORIDE (10 MG) 10 MG TABLET GT SCH ×3 (09:05→17:08)
[2022-11-11] MEDS: ESCITALOPRAM OXALATE (10 MG) 10 MG TABLET GT SCH (09:05)
[2022-11-11] MEDS: DILTIAZEM HCL 30 MG TABLET GT SCH (09:05)
[2022-11-11] MEDS: PROSOURCE / PROSTAT (PYXIS) 30 ML UDC GT SCH ×2 (09:06→17:09)
[2022-11-11] MEDS: hydrALAZINE HCL 50 MG TABLET GT SCH ×3 (09:06→17:08)
[2022-11-11 16:00] VITALS: BP 133/71
--- NOTE | 2022-11-11 16:35 | NUR ---
RN NOTE Patient refusing to be cleaned and refusing to be transferred to the air mattress. Explained the risks of not using the air mattress, patient still refused. Asked patient is he will be willing tomorrow, patient states "We'll see how my body is tomorrow."
[2022-11-11] MEDS: ZINC SULFATE 220 MG CAPSULE GT SCH (17:08)
[2022-11-11] MEDS: MULTIVIT W/MINERALS 1 TAB TABLET GT SCH (17:09)
[2022-11-11] MEDS: ASCORBIC ACID 500 MG TABLET GT SCH (17:09)
--- NOTE | 2022-11-11 19:12 | NUR ---
MS RN CLOSING NOTE Patient in bed, resting. A/O x 1-2, able to make needs known. Stable on room air, breathing evenly and unlabored. No SOB or s/s of distress noted. IV access on Left wrist #18 SL and Right hand #18 infusing NS at 100 ml/hr. G-tube in place running Jevity at 90 ml/hr, feeding to turn off at midnight for EGD tomorrow. Jiang catheter in place with CBI draining to a pinkish colored urine with an output of 5450 cc. Due meds given. Patient still refusing to be cleaned. Safety precautions in place: be din low, locked position; siderails up; call light within reach. Will endorse to workforce management coordinator nurse for ELINA.
--- NOTE | 2022-11-11 19:29 | NUR ---
RN OPENING NOTES; RECEIVED PT IN BED SLEEPING BUT EASY TO AROUSED,ON RM AIR ZAID WELL SAT 97.6% NO SOB/DISTRESS NOTED,IV ACCESS ON L WRIST 18G,R HAND 18G WITH NS 100ML/HR INFUSING WELL,GTUBE PT WITH JEVITY 1.2 90ML/HR ZAID WELL,NO RESIDUAL NOTED,HOB ELEVATED AT ALL TIME,ON CONTINUE BLADDER IRRIGATION PINKES URINE NOTED IN THE BAG,SAETY MEASURE IN PLACE,CALL LIGHT WITHIN REACH,WILL CONTINUE TO MONITOR.
[2022-11-11 20:00] VITALS: BP 146/75
[2022-11-11] MEDS: ATORVASTATIN 40 MG TABLET GT SCH (21:07)
[2022-11-11] MEDS: THERAHONEY GEL 1.5 OZ TUBE TP SCH (23:05)
[2022-11-12] MEDS: IV NS 0.9% 1,000 ML IV PRN (03:45)
--- NOTE | 2022-11-12 06:20 | NUR ---
RN CLOSING NOTES;324 PATIENT IN BED AWAKED AOX1-2 WITH CONFUSION,ON RM AIR ZAID WELL SAT 98% NO SOB/DISTRESS NOTED,NO COMPLAINED OF PAIN/DISCOMFORT DURING SHIFT,IV ACCESS ON L WRIST 18G,R HAND 18G WITH NS 100ML/HR INFUSING WELL,GTUBE IN PLACE,NO RESIDUAL NOTED,HOB ELEVATED AT ALL TIME,PT NPO SINCE MID NIGHT FOR EGD TODAY,ON CONTINUE BLADDER IRRIGATION PINKES URINE NOTED IN THE BAG, OUT PUT 3800ML,SAETY MEASURE IN PLACE,CALL LIGHT WITHIN REACH,RAMIREZ ENDORSED TO NEXT SHIFT,
--- NOTE | 2022-11-12 07:26 | NUR ---
MS RN OPENING NOTE RECEIVED PT AWAKE AND RESTING IN BED. PT IS A/O X1-2, CONFUSED. REORIENTED PT NEEDED. PT IS ON ROOM AIR, TOLERATING WELL. NO SOB NOTED. NOT IN ANY SIGN OF RESPIRATORY DISTRESS. IV ACCESS ON RIGHT HAND G#18 INTACT AND PATENT WITH NS INFUSING AT 100ML/HR. IV ACCESS ON LEFT WRIST G#18 SALINE LOCKED INTACT AND PATENT. PT'S GTUBE IN PLACE WITH JEVITY FEEDING ORDER BUT NOT CURRENTLY RUNNING. PER OPTICAL ENGINEERING MANAGER NURSE, PT IS NPO SINCE MIDNIGHT FOR POSSIBLE EGD PROCEDURE. CHARLES CATH IN PLACE AND DRAINING WELL WITH DARK ORANGE URINE COLOR. SAFETY MEASURES IN PLACE: BED IN LOWEST AND LOCKED POSITION, SIDE RAILS UP X3, BED ALARM ON, KEPT HOB AT ALL TIMES, AND CALL LIGHT WITHIN REACH. WILL CONTINUE PT WITH PLAN OF CARE.
[2022-11-12 08:00] VITALS: BP 168/76
[2022-11-12] MEDS: ACETAMINOPHEN 650 MG/20.3 ML UDC GT SCH (09:00)
[2022-11-12] MEDS: BETHANECHOL CHLORIDE (10 MG) 10 MG TABLET GT SCH ×3 (09:00→17:00)
[2022-11-12] MEDS: DILTIAZEM HCL 30 MG TABLET GT SCH (09:00)
[2022-11-12] MEDS: ESCITALOPRAM OXALATE (10 MG) 10 MG TABLET GT SCH (09:00)
[2022-11-12] MEDS: LEVETIRACETAM SOL (5 ML) 100 MG/ML UDC GT SCH ×2 (09:00→20:20)
[2022-11-12] MEDS: DOCUSATE SODIUM LIQ 100 MG/10 ML UDC GT SCH (09:00)
[2022-11-12] MEDS: PROSOURCE / PROSTAT (PYXIS) 30 ML UDC GT SCH ×2 (09:00→17:00)
[2022-11-12] MEDS: METOPROLOL SUCCINATE 25 MG TAB.SR.24H GT SCH ×2 (09:00→17:00)
[2022-11-12] MEDS: hydrALAZINE HCL 50 MG TABLET GT SCH ×3 (09:00→17:00)
[2022-11-12] MEDS: PANTOPRAZOLE 40 MG VIAL IV SCH ×2 (09:36→20:20)
[2022-11-12] MEDS: THERAHONEY GEL 1.5 OZ TUBE TP SCH (09:38)
--- NOTE | 2022-11-12 09:45 | NUR ---
RN NOTE ALL DUE MEDS VIA GTUBE NOT ADMINISTERED. PT IS CURRENTLY HAS NPO/NOTHING VIA GTUBE ORDER DUE TO POSSIBLE PROCEDURE OF EGD. PT NOTED WITH ELEVATED BP AT 172/75, REASSESSED MANUALLY AND IT'S 168/76. PT CURRENTLY DOES NOT HAVE IV BP MEDICATION FOR MANAGEMENT OF BP. CALLED DR. AVILA LANDAVERDE AND LEFT MESSAGE AND MADE HIM AWARE OF PT'S BP. AWAITING FOR A CALL BACK. Addendum: 11/12/22 at 1310 by TIKA YADAV RN CORRECTION: ALL MEDICATIONS SCHEDULED AT 0900 VIA GTUBE NOT ADMINISTERED.
--- NOTE | 2022-11-12 10:55 | NUR ---
RN NOTE CALLED DR. AVILA LANDAVERDE AGAIN IN REGARDS TO PT'S ELEVATED BP OF 168/76 TAKEN MANUALLY WITH ORDERS TO GIVE PT HYDRALAZINE 10MG IVP Q4HRS PRN FOR SBP >166. ORDERS CARRIED OUT.
[2022-11-12] MEDS ORDERED: hydrALAZINE HCL IV 20 MG VIAL IV PRN (11:00)
--- NOTE | 2022-11-12 11:25 | NUR ---
RN NOTE HYDRALAZINE 10MG IVP ADMINISTERED ORDERED Q4HRS PRN FOR SBP >166. PT'S BP IS 168/76. WILL MONITOR AND REASSESS PT.
--- NOTE | 2022-11-12 12:25 | NUR ---
RN NOTE REASSESSED PT'S BP MANUALLY AFTER ADMINISTERING HYDRALAZINE 10MG IVP. BP IS NOW 154/67, MEDICATION WAS EFFECTIVE.
--- NOTE | 2022-11-12 13:08 | NUR ---
RN NOTE ALL MEDICATIONS SCHEDULED AT 1300 VIA GTUBE NOT ADMINISTERED. PT REMAINS NPO/NOTHING VIA GTUBE ORDER DUE TO POSSIBLE PROCEDURE OF EGD.
[2022-11-12 16:00] VITALS: BP 156/66
[2022-11-12] MEDS: ZINC SULFATE 220 MG CAPSULE GT SCH (17:30)
[2022-11-12] MEDS: MULTIVIT W/MINERALS 1 TAB TABLET GT SCH (17:30)
[2022-11-12] MEDS: ASCORBIC ACID 500 MG TABLET GT SCH (17:30)
--- NOTE | 2022-11-12 18:50 | NUR ---
MS RN CLOSING NOTE PT AWAKE AND RESTING IN BED. PT IS A/O X1-2, CONFUSED. REORIENTED PT NEEDED. PT IS ON ROOM AIR, TOLERATING WELL. NO SOB NOTED. NOT IN ANY SIGN OF RESPIRATORY DISTRESS. IV ACCESS ON RIGHT HAND G#18 AND ON LEFT WRIST G#18 SALINE LOCKED INTACT AND PATENT. PT'S GTUBE IN PLACE WITH JEVITY FEEDING OFF. PT IS NPO SINCE MIDNIGHT FOR EGD PROCEDURE. CHARLES CATH IN PLACE AND DRAINING WELL. ALL NEEDS ATTENDED. KEPT CLEAN AND COMFORTABLE AT ALL TIMES. TURNED AND REPOSITIONED Q2HRS AND NEEDED. SAFETY MEASURES IN PLACE: BED IN LOWEST AND LOCKED POSITION, SIDE RAILS UP X3, BED ALARM ON, KEPT HOB AT ALL TIMES, AND CALL LIGHT WITHIN REACH. AWAITING FOR OR NURSE TO SENIOR ACCOUNTING CLERK FOR EGD PROCEDURE. WILL ENDORSE TO COLOR DEPOSITING MACHINE TENDER NURSE FOR ELINA.
--- NOTE | 2022-11-12 19:00 | NUR ---
RN NOTE PT LEFT THE UNIT FOR AN EGD PROCEDURE. PT WAS PICKED UP BY ANGELICA, OR NURSE VIA BED. ENDORSED TO TOOL DESIGN DRAFTER NURSE.
--- NOTE | 2022-11-12 19:18 | NUR ---
RN OPENING NOTES; PATIENT STILL ON OR FOR PROCEDURE.
[2022-11-12 20:00] VITALS: BP 149/72
[2022-11-12] MEDS: ATORVASTATIN 40 MG TABLET GT SCH (21:11)
[2022-11-13] VITALS (7 sets, daily range): BP systolic 107–138; BP diastolic 55–65
[2022-11-13] MEDS: IV NS 0.9% 1,000 ML IV PRN ×2 (00:46→19:54)
[2022-11-13 06:11] LABS: BASOPHILS % (AUTO) 0.5 % (0.0-2.0); EOSINOPHILS % (AUTO) 3.7 % (0.0-6.0); LYMPHOCYTES # (AUTO) 1.5 K/uL (0.8-4.8); LYMPHOCYTES % (AUTO) 32.7 % (20.0-44.0); MEAN CORPUSCULAR HGB CONC 33 g/dl (31.0-36.0); MEAN CORPUSCULAR VOLUME 91 fL (80-96); MONOCYTES # (AUTO) 0.5 K/uL (0.1-1.30); MONOCYTES % (AUTO) 10.7 % (2.0-12.0); NEUTROPHILS # (AUTO) 2.4 K/uL (1.8-8.9); NEUTROPHILS % (AUTO) 52.4 % (43.0-81.0); PLATELET COUNT (AUTO) 152 K/uL (150-450); WHITE BLOOD COUNT (AUTO) 4.5 K/uL (4.3-11.0)
--- NOTE | 2022-11-13 06:13 | NUR ---
RN CLOSING NOTES; PATIENT IN BED AWAKED AOX1-2 WITH CONFUSION,ON RM AIR ZAID WELL SAT 97.7% NO SOB/DISTRESS NOTED,NO COMPLAINED OF PAIN/DISCOMFORT DURING SHIFT,IV ACCESS ON L WRIST 18G,R HAND 18G WITH NS 100ML/HR INFUSING WELL,GTUBE IN PLACE WITH JEVITY 1.2 90ML/HR INFUSING WELL, NO RESIDUAL NOTED,HOB ELEVATED AT ALL TIME,,SAFETY MEASURE IN PLACE,CALL LIGHT WITHIN REACH,WILL ENDORSED TO NEXT SHIFT,
[2022-11-13 06:33] LABS: CALCIUM, SERUM 7.6 mg/dL (8.5-10.1); CREATININE 0.8 mg/dL (0.6-1.3); MAGNESIUM 1.6 mg/dL (1.8-2.4); PHOSPHORUS 4.3 mg/dL (2.5-4.9); POTASSIUM 3.6 mmol/L (3.5-5.1)
[2022-11-13 06:52] LABS: HEMATOCRIT 20 % (39-51)
[2022-11-13 07:01] LABS: HEMOGLOBIN 6.7 g/dL (13.5-17.5)
--- NOTE | 2022-11-13 07:05 | NUR ---
RN NOTES; LABORATORY CALLED SAID HGB LEVEL 6.7,I ENDORSED TO MORNING NURSE RORO.
--- NOTE | 2022-11-13 07:36 | NUR ---
I RECEIVED Male PATIENT MAGDALENA IN BED AWAKE , NON-AMBULATORY, AOX1-2 WITH CONFUSION,ON RA. o2 SAT 95%. NO SOB/DISTRESS NOTED, TENDER HAND,IV ACCESS ON L WRIST 18G,R HAND 18G. PT HAS FOLLEY CATHETER AND GTUBE IN PLACE WITH JEVITY 1.2 90ML/HR INFUSING WELL, NO RESIDUAL NOTED,HOB ELEVATED AT ALL TIME, SAFETY MEASURE IN PLACE,CALL LIGHT WITHIN REACH,DUE TO LOW HEMOGLUBIN 6.7 NEEDS BLOOD INFUSION. mG IS LOW TOO 1.6. WILL PROVIDE CARE DURING THE SGHIFT .
[2022-11-13] MEDS: Magnesium 1GM/D5W 100ML PREMIX 100 ML IV SCH ×4 (08:48→12:02)
[2022-11-13] MEDS: ACETAMINOPHEN 650 MG/20.3 ML UDC GT SCH (09:27)
[2022-11-13] MEDS: PANTOPRAZOLE 40 MG VIAL IV SCH ×2 (09:27→21:09)
[2022-11-13] MEDS: DOCUSATE SODIUM LIQ 100 MG/10 ML UDC GT SCH (09:28)
[2022-11-13] MEDS: METOPROLOL SUCCINATE 25 MG TAB.SR.24H GT SCH ×2 (09:28→17:59)
[2022-11-13] MEDS: hydrALAZINE HCL 50 MG TABLET GT SCH ×3 (09:29→18:02)
[2022-11-13] MEDS: LEVETIRACETAM SOL (5 ML) 100 MG/ML UDC GT SCH ×2 (09:29→21:09)
[2022-11-13] MEDS: DILTIAZEM HCL 30 MG TABLET GT SCH (09:30)
[2022-11-13] MEDS: ESCITALOPRAM OXALATE (10 MG) 10 MG TABLET GT SCH (09:30)
[2022-11-13] MEDS: PROSOURCE / PROSTAT (PYXIS) 30 ML UDC GT SCH ×2 (09:30→18:03)
[2022-11-13] MEDS: BETHANECHOL CHLORIDE (10 MG) 10 MG TABLET GT SCH ×3 (09:30→17:59)
[2022-11-13] MEDS: THERAHONEY GEL 1.5 OZ TUBE TP SCH (09:32)
[2022-11-13] MEDS ORDERED: DILT30TA14 GT (14:15)
[2022-11-13] MEDS ORDERED: CEPH250S PO (14:15)
[2022-11-13] MEDS ORDERED: PANT40SU2 GT (14:15)
[2022-11-13] MEDS ORDERED: PANT40TA2 PO (14:15)
--- NOTE | 2022-11-13 14:55 | NUR ---
RN NOTE BLOOD TRANSFUSION OF 1 UNIT PRBC STARTED. WILL CONTINUE TO MONITOR FOR A/R. VITAL SIGNS TAKEN AND RECORDED.
--- NOTE | 2022-11-13 17:35 | NUR ---
RN NOTE 1 UNIT PRBC TRANSFUSED. NO ADVERSE REACTION NOTED. VITAL WNL.
[2022-11-13] MEDS: ASCORBIC ACID 500 MG TABLET GT SCH (17:59)
[2022-11-13] MEDS: MULTIVIT W/MINERALS 1 TAB TABLET GT SCH (18:00)
[2022-11-13] MEDS: ZINC SULFATE 220 MG CAPSULE GT SCH (18:00)
--- NOTE | 2022-11-13 18:37 | NUR ---
RN CLOSING NOTES PATIENT MAGDALENA IS IN BED, AWAKE , NON-AMBULATORY, AT FALL RISK. AOX1-2 WITH CONFUSION,ON RA. o2 SAT 94%. NO SOB/DISTRESS NOTED, HIS HAND IS ASSEMBLER CARDS AND ANNOUNCEMENTS ,IV ACCESS ON L WRIST 18G,R HAND 18G, PATENT AND INTACT . PATIENT RECEIVED ONE UNIT OF RED BLOOD CELLS TODAY DUE TO LOW LEVELS OF HEMOGLUBIN 6.7 AND HCT 20. PT IS STILL ON FOLLEY CATHETER AND G-TUBE IN PLACE WITH JEVITY 1.2 90ML/HR INFUSING WELL, NO RESIDUAL NOTED. HOB ELEVATED AT ALL TIME, SAFETY MEASURE IN PLACE,CALL LIGHT WITHIN REACH. WILL ENDORSED TO NEXT SHIFT.
--- NOTE | 2022-11-13 19:26 | NUR ---
RN OPENING NOTES; RECEIVED PT IN BED SLEEPING BUT EASY TO AROUSED,ON RM AIR ZAID WELL SAT 98% NO SOB/DISTRESS NOTED,IV ACCESS ON L WRIST 18G,R HAND 18G WITH NS 100ML/HR INFUSING WELL,GTUBE PT WITH JEVITY 1.2 90ML/HR ZAID WELL,NO RESIDUAL NOTED,HOB ELEVATED AT ALL TIME,FC IN PLACE DRAINING YELLOW,PINK COLOR,SAFETY MEASURE IN PLACE,CALL LIGHT WITHIN REACH,WILL CONTINUE TO MONITOR.
[2022-11-13 20:00] LABS: HEMOGLOBIN 7.9 g/dL (13.5-17.5)
--- NOTE | 2022-11-13 20:25 | NUR ---
RN NOTES; I GIVE THE REPORT TO HAMLET MARKET RESEARCH SPECIALIST IN [facility].
[2022-11-13] MEDS: ATORVASTATIN 40 MG TABLET GT SCH (21:08)
--- NOTE | 2022-11-13 21:42 | NUR ---
RN NOTES; PATIENT WAS PICKED BY [facility] WITH DRISS PALMER,[facility] THE [facility],PATIENT WAS STABLE V/S WITHIN NORMAL LIMITS,IV SITE REMOVE,F/C INTACT AND DRAINING YELLOW,PINK COLORS URINE,NO ABDOMINAL DISTENTION NOTED,GTUBE INTACT AND PATENT,NO RESIDUAL,BELONGING WITH THE PT,
== END 2022-11-13 21:45 | DRG 377 ==
LOC: ER 17:43 → TELE 21:03 → MED 21:41
PROVIDERS: ADMIT Nurse Practitioner Acute Care; ATTEND Nurse Practitioner Acute Care
PROC: 30233N1 Transfusion of Nonautologous Red Blood Cells into Peripheral Vein, Percutaneous Approach (ICD-10-PCS; principal; 2022-11-08)
PROC: 0W3P8ZZ Control Bleeding in Gastrointestinal Tract, Via Natural or Artificial Opening Endoscopic (ICD-10-PCS; 2022-11-12)
PROC: 0D778ZZ Dilation of Stomach, Pylorus, Via Natural or Artificial Opening Endoscopic (ICD-10-PCS; 2022-11-12)
DX: K31.811 Angiodysplasia of stomach and duodenum with bleeding (principal); E43 Unspecified severe protein-calorie malnutrition; G93.41 Metabolic encephalopathy; K31.1 Adult hypertrophic pyloric stenosis; C90.00 Multiple myeloma not having achieved remission; D62 Acute posthemorrhagic anemia; D68.9 Coagulation defect, unspecified; Q27.33 Arteriovenous malformation of digestive system vessel; R62.7 Adult failure to thrive; R13.10 Dysphagia, unspecified; Z20.822 Contact with and (suspected) exposure to COVID-19; K29.70 Gastritis, unspecified, without bleeding; Z86.73 Personal history of transient ischemic attack (TIA), and cerebral infarction without residual deficits; G40.909 Epilepsy, unspecified, not intractable, without status epilepticus; Z79.01 Long term (current) use of anticoagulants; Z79.899 Other long term (current) drug therapy; Z93.1 Gastrostomy status; E78.5 Hyperlipidemia, unspecified; E88.09 Other disorders of plasma-protein metabolism, not elsewhere classified; R33.9 Retention of urine, unspecified; Z86.718 Personal history of other venous thrombosis and embolism; Z88.6 Allergy status to analgesic agent; Z91.011 Allergy to milk products; R79.89 Other specified abnormal findings of blood chemistry; R31.9 Hematuria, unspecified; I25.10 Atherosclerotic heart disease of native coronary artery without angina pectoris; F03.90 Unspecified dementia, unspecified severity, without behavioral disturbance, psychotic disturbance, mood disturbance, and anxiety; T83.091A Other mechanical complication of indwelling urethral catheter, initial encounter; Y84.6 Urinary catheterization as the cause of abnormal reaction of the patient, or of later complication, without mention of misadventure at the time of the procedure; Y92.129 Unspecified place in nursing home as the place of occurrence of the external cause; I10 Essential (primary) hypertension; I87.2 Venous insufficiency (chronic) (peripheral); M15.9 Polyosteoarthritis, unspecified; Z74.09 Other reduced mobility; R60.1 Generalized edema
CPT/HCPCS: 36415; 80048-TC; 80076-TC; 82272-TC; 82728-TC; 83540-TC; 83605-TC; 83735-TC; 84100-TC; 85025-TC; 85027-TC; 85045-TC; 85730-TC; 86850-TC; 87081-TC; A4217; A4223; C1726; C9113; C9803; G0378; J0360; J1953; J2704; J3475; J3490; J7030; J7050; P9016

== ENCOUNTER 2023-03-02 19:47 | Inpatient (IN) | payer MEDICARE, BC ==
[~2023-03-02] VITALS: Ht 182.9 cm; Wt 64.9 kg
[~2023-03-02 19:47] MED LIST changes: +ASCO-352 PO; +CEPH250S PO; +DILT30TA14 GT; -MEGE400O6 PO; -MERO500V23 IV; +MULT-447 PO; +NUTR250L50 GT; +PANT40SU2 GT; +PANT40TA2 PO; +ZINC50TA69 PO
--- NOTE | 2023-03-02 20:15 | NUR ---
Patient AOx4, able to express his concerns. Patietn reports he has been feeling weak and with abdominal pain for a couple of days, "not sure for how long". No signs of distress or discomfort. Discussed plan of care, pt verbalized agreement.
--- NOTE | 2023-03-02 20:25 | NUR ---
Pt out for imaging
[2023-03-02] MEDS ORDERED: ONDANSETRON HCL/PF 4 MG/2 ML VIAL ONE (20:29)
[2023-03-02] MEDS ORDERED: ONDANSETRON HCL/PF 4 MG/2 ML VIAL IVP ONE (20:30)
[2023-03-02] MEDS ORDERED: IV NS 0.9% 1,000 ML BAG IV ONE (20:30)
--- NOTE | 2023-03-02 20:39 | NUR ---
PT RETURNED TO ER BED [address]
--- NOTE | 2023-03-02 20:50 | NUR ---
Pt refused swallow eval. Asking to try back later.
--- NOTE | 2023-03-02 21:02 | NUR ---
MOVE SHEET SUBMITTED
--- NOTE | 2023-03-02 21:06 | NUR ---
Urine collection pending.
[2023-03-02 21:18] LABS: BASOPHILS % (AUTO) 0.2 % (0.0-2.0); EOSINOPHILS % (AUTO) 0.1 % (0.0-6.0); HEMATOCRIT 31 % (39-51); HEMOGLOBIN 10.5 g/dL (13.5-17.5); LYMPHOCYTES # (AUTO) 0.5 K/uL (0.8-4.8); LYMPHOCYTES % (AUTO) 6.6 % (20.0-44.0); MEAN CORPUSCULAR HGB CONC 34 g/dl (31.0-36.0); MEAN CORPUSCULAR VOLUME 84 fL (80-96); MONOCYTES # (AUTO) 0.5 K/uL (0.1-1.30); MONOCYTES % (AUTO) 6.6 % (2.0-12.0); NEUTROPHILS # (AUTO) 6.7 K/uL (1.8-8.9); NEUTROPHILS % (AUTO) 86.5 % (43.0-81.0); PLATELET COUNT (AUTO) 313 K/uL (150-450); RED BLOOD CELL COUNT(AUTO) 3.68 MIL/uL (4.5-6.0); WHITE BLOOD COUNT (AUTO) 7.8 K/uL (4.3-11.0)
--- NOTE | 2023-03-02 21:18 | NUR ---
Geremias Rogers -Power of freezer tunnel operator ph. [phone]
[2023-03-02 21:19] LABS: CALCIUM, SERUM 9.5 mg/dL (8.5-10.1); CARBON DIOXIDE 22 mmol/L (21-32); CHLORIDE 92 mmol/L (98-107); CREATININE 1.7 mg/dL (0.6-1.3); GLUCOSE 129 mg/dL (74-106); POTASSIUM 4.1 mmol/L (3.5-5.1); SODIUM SERUM 127 mmol/L (136-145); UREA NITROGEN, BLOOD 36 mg/dL (7-18)
[2023-03-02 21:24] LABS: ALANINE AMINOTRANSFERASE 28 U/L (12-78); ALBUMIN 2.8 g/dL (3.4-5.0); ALKALINE PHOSPHATASE 404 U/L (46-116); ASPARTATE AMINOTRANSFERASE 24 U/L (15-37); BILIRUBIN,DIRECT 0.3 mg/dL (0.0-0.2); BILIRUBIN,TOTAL 0.7 mg/dL (0.2-1.0); LIPASE 36 U/L (73-393); TOTAL PROTEIN, SERUM 7.8 g/dL (6.4-8.2)
[2023-03-02] MEDS ORDERED: AZITHROMYCIN 500 MG in IV D5W 250 ML IV ONE (21:30)
[2023-03-02] MEDS ORDERED: VANCOMYCIN 1 GM in IV D5W 250 ML IV ONE (21:30)
[2023-03-02] MEDS ORDERED: PIPERACILLIN /TAZOBACTAM 3.375 G in IV D5W 50 ML IV ONE (21:30)
[2023-03-02] MEDS ORDERED: AZITHROMYCIN 500 MG VIAL ONE (21:32)
[2023-03-02] MEDS ORDERED: PIPERACI/TAZO 3.375GM/D5W 50ML PB IV ONE (21:33)
[2023-03-02] MEDS ORDERED: VANCOMYCIN 1 GM /D5W 250 ML PB IV ONE (22:14)
[2023-03-02] MEDS ORDERED: ONDANSETRON HCL/PF 4 MG/2 ML VIAL IVP PRN (23:00)
[2023-03-02] MEDS ORDERED: Z GUARD REMEDY 4 OZ OINT TP PRN (23:00)
[2023-03-02] MEDS ORDERED: TEMAZEPAM 15 MG CAPSULE GT PRN (23:00)
[2023-03-02 23:25] LABS: COLOR,URINE YELLOW (YELLOW)
[2023-03-02 23:26] LABS: PH,URINE 8.5 (5.0-8.0)
[2023-03-02 23:27] LABS: BILIRUBIN,URINE NEGATIVE (NEGATIVE); PROTEIN,URINE 3+ mg/dl (NEGATIVE); UGLUCOSE NEGATIVE (NEGATIVE); UROBILINOGEN,URINE 0.2 EU/dL (0.2)
[2023-03-02 23:28] LABS: LEUKOCYTE ESTERASE ,URINE 3+ (NEGATIVE); NITRITE, URINE POSITIVE (NEGATIVE)
[2023-03-02 23:29] LABS: BACTERIA,URINE 1+ /HPF (None Seen); MUCUS,URINE Many /LPF (None Seen); SQUAMOUS EPITHELIAL CELL,UR None Seen /HPF (None Seen); TRIPLE PHOSPHATE CRYSTAL,UR Few /HPF (None Seen); WBC,URINE TOO NUMEROUS TO COUN /HPF (0-3)
[2023-03-03 00:30] VITALS: BP 127/66; TEMP 98.1; O2SAT 97
--- NOTE | 2023-03-03 00:47 | NUR ---
Per patietns request swallow eval not done, made 3W RN aware.
--- NOTE | 2023-03-03 00:55 | NUR ---
PROCESS DEVELOPMENT CHEMIST NOTE RECEIVED PT FROM NURSE ANGELO. PT IS TRANSFERRED FROM [facility] TO [facility]. PT IS A/O X 4, ABLE TO MAKE NEEDS KNOWN. PT IS IN RA TOLERATING WELL, BREATHING EVEN AND UNLABORED AT THIS TIME WITH O2 SAT OF 97% . ORIENTED TO STAFF AND UNIT. PT IV PRESENT ON THE RIGHT FOREARM #20G SALINE LOCK, PATENT, INTACT AND FLUSHES WELL W/ NO S & SX OF INFILTRATION @ SITE NOTED. PT SALES PROMOTION REPRESENTATIVE IS IN PLACE WITH CURRENT READING OF SINUS RHYTHM, HR OF 75 BPM. PT CHARLES CATHETER IS IN PLACE DRAINING ORANGE CLOUDY URINE. PT J TUBE IS IN PLACE CLEAN AND INTACT. SKIN IS WARM AND DRY. PHOTO OF THE LEFT ARM IS TAKEN AND FILED ON PT CHART. BELONGINGS IS LISTED AND ALL ACCOUNTED FOR AND FILED ON PT'S CHART. VITAL SIGNS IS TAKEN AND DOCUMENTED. ALL NEEDS ATTENDED. SAFETY MEASURE IS IN PLACE. BED IN LOWEST AND LOCK POSITION. SIDE RAILS UP X 4. BEDSIDE TABLE AND CALL LIGHT IS EASY REACH. BED ALARM IS ON. WILL CONTINUE TO MONITOR PT ACCORDINGLY.
[2023-03-03 02:52] VITALS: BP 127/66; TEMP 98.7; O2SAT 97
[2023-03-03 04:00] VITALS: BP 115/58; TEMP 98; O2SAT 97
[2023-03-03] MEDS: IV NS 0.9% 1,000 ML IV PRN ×2 (04:29→18:35)
[2023-03-03] MEDS ORDERED: PIPERCILLIN/TAZOBACTAM 2.25GM/D5W 50MLPB IV ONE (04:35)
[2023-03-03] MEDS ORDERED: PIPERACILLIN /TAZOBACTAM 2.25 G in IV D5W 50 ML IV SCH ×2 (05:00→06:00)
--- NOTE | 2023-03-03 06:40 | NUR ---
RN CLOSING NOTE PT IS ASLEEP AND RESTING COMFORTABLY IN BED. PT IS A/O X 4, RESPONSIVE AND FOLLOWS VERBAL COMMAND. PT IS IN RA W/ NO S&SX OF RESPIRATORY DISTRESS @ THIS TIME. PT IV PRESENT ON THE RIGHT FOREARM #20G RUNNING NS @75MLS/HR, PATENT, INTACT AND FLUSHES WELL W/ NO S & SX OF INFILTRATION @ SITE NOTED. PT SUPERVISOR CONCRETE BLOCK PLANT IS IN PLACE WITH CURRENT READING OF SINUS RHYTHM, HR 75 BPM. PT CHARLES CATHETER IS IN PLACE DRAINING ORANGE CLOUDY URINE. PT J TUBE IS IN PLACE CLEAN AND INTACT. SAFETY MEASURE IS IN PLACE. BED IN LOWEST AND LOCK POSITION. SIDE RAILS UP X 4. BEDSIDE TABLE AND CALL LIGHT IS EASY REACH. BED ALARM IS ON. WILL ENDORSE PT TO THE NEXT SHIFT FOR ELINA.
[2023-03-03 07:00] VITALS: BP 124/69; TEMP 98.1; O2SAT 96
--- NOTE | 2023-03-03 07:20 | NUR ---
RETAIL BANKING MANAGER OPENING NOTE RECEIVED PATIENT IN BED ASLEEP. PATIENT IS ALERT AND ORIENTED X 3-4 BUT FORGETFUL AT TIMES. ABLE TO MAKE NEEDS KNOWN. ON ROOM AIR WITH EQUAL AND UNLABORED BREATHING. WITH NO SIGNS OF DISTRESS NOTED. ON TELE MONITOR READING SR AT 75BPM. WITH IV ACCESS ON THE RIGHT FA G 20, WITH IVF NS RUNNING AT 75ML/HR, INFUSING WELL. WITH JTUBE WITH DRESSING DRY AND INTACT. COMFORT MEASURES PROVIDED. ON NORMAL BODY ALIGNMENT. WITH CHARLES CATHETER TO URINE BAG, WITH YELLOWISH DRAINAGE VIA GRAVITY. SAFETY MEASURES ENSURED WITH BED ON LOWEST LOCKED POSITION. SIDE RAILS UP X 4. BEDSIDE TABLE AND CALL LIGHT WITHIN REACH. BED ALARM IS ON. WILL CONTINUE WITH PLAN OF CARE.
[2023-03-03 07:42] LABS: BASOPHILS % (AUTO) 0.6 % (0.0-2.0); EOSINOPHILS % (AUTO) 0.5 % (0.0-6.0); HEMATOCRIT 24 % (39-51); HEMOGLOBIN 8.1 g/dL (13.5-17.5); LYMPHOCYTES # (AUTO) 1.1 K/uL (0.8-4.8); LYMPHOCYTES % (AUTO) 18.1 % (20.0-44.0); MEAN CORPUSCULAR HGB CONC 34 g/dl (31.0-36.0); MEAN CORPUSCULAR VOLUME 86 fL (80-96); MONOCYTES # (AUTO) 0.5 K/uL (0.1-1.30); MONOCYTES % (AUTO) 9.1 % (2.0-12.0); NEUTROPHILS # (AUTO) 4.3 K/uL (1.8-8.9); NEUTROPHILS % (AUTO) 71.7 % (43.0-81.0); PLATELET COUNT (AUTO) 240 K/uL (150-450)
[2023-03-03 08:05] LABS: CARBON DIOXIDE 23 mmol/L (21-32); CHLORIDE 96 mmol/L (98-107); CREATININE 1.5 mg/dL (0.6-1.3); GLUCOSE 102 mg/dL (74-106); MAGNESIUM 1.7 mg/dL (1.8-2.4); PHOSPHORUS 5.3 mg/dL (2.5-4.9); SODIUM SERUM 129 mmol/L (136-145); UREA NITROGEN, BLOOD 33 mg/dL (7-18)
[2023-03-03] MEDS: PANTOPRAZOLE 40 MG VIAL IV SCH (08:53)
--- NOTE | 2023-03-03 11:15 | NUR ---
THREAD MACHINE OPERATOR NOTE SEEN BE DR. VARGAS
[2023-03-03] MEDS: Magnesium 1GM/D5W 100ML PREMIX 100 ML IV SCH ×2 (11:40→13:13)
[2023-03-03] MEDS: PIPERACILLIN /TAZOBACTAM 2.25 G in IV D5W 50 ML IV SCH ×2 (14:59→18:06)
[2023-03-03 16:00] VITALS: BP 99/55; TEMP 98.4; O2SAT 96
--- NOTE | 2023-03-03 17:10 | NUR ---
DEVELOPMENTAL TRAINING COUNSELOR NOTE PATIENT WITH SWELLING ON THE LEFT ELBOW, DR. VARGAS NOTIFIED WITH ORDER TO DO XRAY OF LEFT ELBOW. ORDERS VERIFIED AND MADE. FAMILY AT BEDSIDE. FAMILY NOTIFIED. WILL CONTINUE WITH PLAN OF CARE.
--- NOTE | 2023-03-03 19:00 | NUR ---
HAT BLOCKER NOTE PATIENT ENDORSED TO NEXT SHIFT FOR CONTINUITY OF CARE. PATIENT IN STABLE CONDITION.
--- NOTE | 2023-03-03 19:30 | NUR ---
CORPORATE TECHNICAL RECRUITER OPENING NOTES - RECEIVED PATIENT IN BED. A/O X3, FORGETFUL. BREATHING EVEN AND NON-LABORED ON ROOM AIR. NO C/O PAIN AT THIS TIME. HAS TELE MONITOR READING SINUS RHYTHM AT 68 BPM. HAS RIGHT FOREARM IV ACCESS #20G WITH NS RUNNING AT 75 ML/HR. NO S/S OF INFILTRATION NOTED. HAS INDWELLING CHARLES CATHETER DRAINING YELLOW URINE TO BAG BY GRAVITY. HAS LLQ J-TUBE, CLAMPED. SAFETY PRECAUTIONS IN PLACE: BED LOCKED AND IN LOW POSITION, SIDE RAILS UP X3, CALL LIGHT WITHIN REACH. WILL CONTINUE PLAN OF CARE.
[2023-03-03 20:00] VITALS: BP 118/57; TEMP 98.3; O2SAT 96
[2023-03-03] MEDS ORDERED: VANCOMYCIN 0.75 GM in IV D5W 250 ML IV SCH (21:00)
[2023-03-03] MEDS ORDERED: AZITHROMYCIN 500 MG in IV D5W 250 ML IV SCH (21:00)
[2023-03-03] MEDS: AZITHROMYCIN 500 MG in IV D5W 250 ML IV SCH (22:03)
[2023-03-04] VITALS (7 sets, daily range): BP systolic 126–157; BP diastolic 56–72; TEMP 98–98.4; O2SAT 95–97
[2023-03-04] MEDS: PIPERACILLIN /TAZOBACTAM 2.25 G in IV D5W 50 ML IV SCH ×4 (00:15→17:29)
[2023-03-04 06:46] LABS: BASOPHILS % (AUTO) 0.7 % (0.0-2.0); EOSINOPHILS % (AUTO) 3.8 % (0.0-6.0); HEMATOCRIT 22 % (39-51); HEMOGLOBIN 7.4 g/dL (13.5-17.5); LYMPHOCYTES # (AUTO) 1.1 K/uL (0.8-4.8); LYMPHOCYTES % (AUTO) 24.1 % (20.0-44.0); MEAN CORPUSCULAR HGB CONC 33 g/dl (31.0-36.0); MEAN CORPUSCULAR VOLUME 86 fL (80-96); MONOCYTES # (AUTO) 0.4 K/uL (0.1-1.30); MONOCYTES % (AUTO) 9.4 % (2.0-12.0); NEUTROPHILS # (AUTO) 2.8 K/uL (1.8-8.9); PLATELET COUNT (AUTO) 183 K/uL (150-450); RED BLOOD CELL COUNT(AUTO) 2.56 MIL/uL (4.5-6.0); WHITE BLOOD COUNT (AUTO) 4.6 K/uL (4.3-11.0)
--- NOTE | 2023-03-04 07:20 | NUR ---
INSPECTOR AND TESTER CLOSING NOTES - PATIENT RESTING IN BED, ABLE TO VERBALIZED NEEDS. NO SOB OR , TOLERATING ROOM AIR WELL. NO C/O PAIN OR DISCOMFORT. AFEBRILE. TELE MONITOR SHOWS SINUS RHYTHM WITH OCCASIONAL PAC AT 65-80 BPM. RIGHT FOREARM IV ACCESS INTACT, PATENT AND FLUSHING. ALL DUE MEDS GIVEN AND NEEDS ATTENDED. PERINEAL CARE RENDERED. TURNED AND REPOSITIONED PATIENT ALLOWS. CLOUDY TRUDI URINE OUTPUT NOTED, FLUSHED IFC. STRICT ASPIRATION PRECAUTION OBSERVED. SAFETY PRECAUTIONS MAINTAINED. WILL ENDORSE TO AM RN FOR ELINA.
[2023-03-04 07:23] LABS: CALCIUM, SERUM 8.7 mg/dL (8.5-10.1); CREATININE 1.1 mg/dL (0.6-1.3); MAGNESIUM 1.9 mg/dL (1.8-2.4); PHOSPHORUS 3.9 mg/dL (2.5-4.9); POTASSIUM 3.4 mmol/L (3.5-5.1)
--- NOTE | 2023-03-04 07:49 | NUR ---
TAXIMETER REPAIRER OPENING NOTE Patient in bed, awake. A/O x 3, forgetful but able to make needs known. On room air, no SOB or s/s of distress noted. IV access on RFA #20 infusing NS at 75 ml/hr. Jiang catheter in place draining to a yellow colored urine. G-tube in place, intact and clamped. On external monitoring showing SR, HR on the 80's. Safety precautions in place: bed in low, locked position; siderails up x 2; call light within reach. Will continue to monitor.
[2023-03-04] MEDS: POTASSIUM CHLORIDE 20 MEQ POWDER PACKET PO ONE ×2 (08:13→08:26)
[2023-03-04] MEDS: PANTOPRAZOLE 40 MG VIAL IV SCH (08:14)
[2023-03-04] MEDS ORDERED: POTASSIUM CHLORIDE 20 MEQ TAB.PRT.SR PO ONE (08:30)
[2023-03-04] MEDS: IV NS 0.9% 1,000 ML IV PRN (13:03)
[2023-03-04] MEDS: VANCOMYCIN 0.75 GM in IV D5W 250 ML IV SCH (15:21)
[2023-03-04] MEDS ORDERED: TRAMADOL HCL 50 MG TABLET PO PRN (18:00)
[2023-03-04] MEDS ORDERED: CLONIDINE HCL 0.1 MG TABLET PO PRN (18:00)
[2023-03-04] MEDS ORDERED: BISACODYL SUPP (10 MG) 10 MG/SUPP.RECT SUPP.RECT RC PRN (18:00)
[2023-03-04] MEDS ORDERED: NA PHOS,M-B/NA PHOS,DI-BA 1 EA ENEMA RC PRN (18:00)
[2023-03-04] MEDS ORDERED: ACETAMINOPHEN 325 MG TABLET PO PRN (18:00)
[2023-03-04] MEDS ORDERED: MAG HYDROX/AL HYDROX/SIMETH 30 ML UDC PO PRN (18:00)
[2023-03-04] MEDS ORDERED: MAGNESIUM HYDROXIDE 30 ML UDC PO PRN (18:00)
[2023-03-04] MEDS: MULTIVIT W/MINERALS 1 TAB TABLET PO SCH (18:01)
[2023-03-04] MEDS: ZINC SULFATE 220 MG CAPSULE PO SCH (18:01)
[2023-03-04] MEDS: ASCORBIC ACID 500 MG TABLET PO SCH (18:02)
--- NOTE | 2023-03-04 18:45 | NUR ---
SHIRA NOTE Family brought in Cranberry pills, medication brought down to pharmacy. Addendum: 03/04/23 at 1901 by CINTHIA BAKER RN ADD: Pharmacy already closed, will endorse to security shift supervisor nurse.
--- NOTE | 2023-03-04 18:49 | NUR ---
BIG DATA LEAD CLOSING NOTE Patient in bed, resting. A/O x 3, able to make needs known. Stable on room air, no SOB or s/s of distress noted. IV access on RFA #20 infusing NS at 75 ml/hr. Jiang catheter in place draining to a yellow colored urine with an output of 550 cc. G-tube in place, intact, flushing, and clamped. On external monitoring showing SR, HR on the 80's. Safety precautions in place: bed in low, locked position; siderails up x 2; call light within reach. Will endorse to [facility] shift nurse for ELINA.
--- NOTE | 2023-03-04 19:30 | NUR ---
COLLEGE PROFESSOR OPENING NOTES RECEIVED PT AWAKE IN BED, WATCHING TV AT THIS TIME. A/O X4, ABLE TO MAKE NEEDS KNOWN. ON RA WITH NO SOB OR DISTRESS. DENIES PAIN AT THIS TIME. ON RECRUITING ADMINISTRATOR READING SR WITH PAC'S, 62 HR. IV ACCESS RFA #20G, PATENT, INTACT, FLUSHING WELL, INFUSING NS @ 75 ML/HR. G TUBE INTACT, NO RESIDUALS, FLUSHING WELL, PLACEMENT CONFIRMED BY AUSCULTATION. EDEMA NOTED ON L ELBOW. SAFETY MEASURES IN PLACE: BED LOCKED AND IN LOW POSITION, SIDE RAILS UP X3, BED ALARM ON, CALL LIGHT AND TRAY TABLE WITHIN REACH. WILL CONTINUE TO MONITOR AND ASSIST.
[2023-03-04] MEDS: ATORVASTATIN 40 MG TABLET PO SCH (21:30)
[2023-03-04] MEDS: LEVETIRACETAM (250 MG) 250 MG TABLET PO SCH (21:31)
[2023-03-04] MEDS: AZITHROMYCIN 500 MG in IV D5W 250 ML IV SCH (21:31)
--- NOTE | 2023-03-04 22:17 | NUR ---
RN NOTE: BP 157/68, GIVEN PRESCRIBED CLONIDINE 0.1 MG. TOLERATED WELL.
[2023-03-05] MEDS: PIPERACILLIN /TAZOBACTAM 2.25 G in IV D5W 50 ML IV SCH ×4 (00:14→17:23)
[2023-03-05 00:36] VITALS: BP 137/59; TEMP 98; O2SAT 96
[2023-03-05 04:53] VITALS: BP 134/55; TEMP 97.8; O2SAT 96
[2023-03-05] MEDS: IV NS 0.9% 1,000 ML IV PRN ×2 (05:56→23:00)
[2023-03-05 07:00] VITALS: BP 129/57; TEMP 97.4; O2SAT 97
--- NOTE | 2023-03-05 07:00 | NUR ---
SUPERVISOR FURNACE ROOM CLOSING NOTES PT SLEEPING IN BED, EASILY AROUSED. A/O X4, ABLE TO MAKE NEEDS KNOWN. STABLE ON RA WITH NO SOB OR DISTRESS. DENIES PAIN AT THIS TIME. ON FILM RECORDIST READING SINUS MARIO, 40'S TO 50'S HR DURING SHIFT. IV ACCESS RFA #20G, PATENT, INTACT, FLUSHING WELL, INFUSING NS @ 75 ML/HR. G TUBE INTACT, NO RESIDUALS, FLUSHING WELL, PLACEMENT CONFIRMED BY AUSCULTATION. CHARLES CATH INTACT, DRAINED CLEAR YELLOW URINE, 800 ML TOTAL OUTPUT. EDEMA NOTED ON L ELBOW. TURNED AND REPOSITIONED PER PROTOCOL. ALL CARE PROVIDED AND MEDS TOLERATED WELL. SAFETY MEASURES IN PLACE: BED LOCKED AND IN LOW POSITION, SIDE RAILS UP X3, BED ALARM ON, CALL LIGHT AND TRAY TABLE WITHIN REACH. WILL ENDORSE ELINA TO DAY SHIFT NURSE.
[2023-03-05 07:21] LABS: BASOPHILS % (AUTO) 0.8 % (0.0-2.0); EOSINOPHILS % (AUTO) 6.1 % (0.0-6.0); HEMATOCRIT 22 % (39-51); HEMOGLOBIN 7.2 g/dL (13.5-17.5); LYMPHOCYTES % (AUTO) 25.4 % (20.0-44.0); MEAN CORPUSCULAR HGB CONC 33 g/dl (31.0-36.0); MEAN CORPUSCULAR VOLUME 87 fL (80-96); MONOCYTES # (AUTO) 0.4 K/uL (0.1-1.30); MONOCYTES % (AUTO) 8.8 % (2.0-12.0); NEUTROPHILS # (AUTO) 2.3 K/uL (1.8-8.9); NEUTROPHILS % (AUTO) 58.9 % (43.0-81.0); PLATELET COUNT (AUTO) 167 K/uL (150-450); RED BLOOD CELL COUNT(AUTO) 2.51 MIL/uL (4.5-6.0)
--- NOTE | 2023-03-05 07:35 | NUR ---
ADJUNCT NURSING FACULTY OPENING NOTES RECEIVED PT AWAKE IN BED, A/O X3, ABLE TO MAKE NEEDS KNOWN. ON RA WITH NO SOB OR DISTRESS. DENIES PAIN AT THIS TIME. ON MANAGER FORMS READING SINUS BRADYCARDIA, 43 HR. IV ACCESS RFA #20G, PATENT, INTACT, FLUSHING WELL, INFUSING NS @ 75 ML/HR. G TUBE IN PLACE, CLAMPED. WITH CHARLES CATHETER DRAINING CLEAR, YELLOW URINE. SAFETY MEASURES IN PLACE: BED LOCKED AND IN LOW POSITION, SIDE RAILS UP X3, BED ALARM ON, CALL LIGHT AND TRAY TABLE WITHIN REACH. WILL CONTINUE TO MONITOR PT.
[2023-03-05 07:59] LABS: CALCIUM, SERUM 8.8 mg/dL (8.5-10.1); CREATININE 0.9 mg/dL (0.6-1.3); POTASSIUM 3.3 mmol/L (3.5-5.1)
[2023-03-05] MEDS: DOCUSATE SODIUM 100 MG CAPSULE PO SCH (08:39)
[2023-03-05] MEDS: ESCITALOPRAM OXALATE (10 MG) 10 MG TABLET PO SCH (08:40)
[2023-03-05] MEDS: BETHANECHOL CHLORIDE (10 MG) 10 MG TABLET PO SCH ×3 (08:40→16:09)
[2023-03-05] MEDS: ACETAMINOPHEN 325 MG TABLET PO SCH (08:40)
[2023-03-05] MEDS: LEVETIRACETAM (250 MG) 250 MG TABLET PO SCH ×2 (08:41→20:56)
[2023-03-05] MEDS: APIXABAN 2.5 MG TABLET PO SCH ×2 (08:43→16:24)
[2023-03-05] MEDS ORDERED: PANTOPRAZOLE 40 MG TABLET.DR PO SCH (09:00)
[2023-03-05] MEDS ORDERED: Medication Not On Formulary EA (Cranberry Extract (Cranberry) 850 MG) PO SCH (09:00)
[2023-03-05] MEDS ORDERED: DILTIAZEM HCL 30 MG TABLET GT SCH (09:00)
[2023-03-05] MEDS: METOPROLOL SUCCINATE 25 MG TAB.SR.24H PO SCH ×2 (09:00→16:11)
[2023-03-05] MEDS: hydrALAZINE HCL 50 MG TABLET PO SCH ×3 (09:00→16:10)
[2023-03-05] MEDS: NIFEDIPINE XL 60 MG TAB.ER.24 PO SCH (09:00)
[2023-03-05] MEDS ORDERED: POTASSIUM CHLORIDE 20 MEQ TAB.PRT.SR PO SCH (09:00)
[2023-03-05] MEDS: PROSOURCE / PROSTAT (PYXIS) 30 ML UDC PO SCH ×2 (09:11→16:14)
[2023-03-05] MEDS: VANCOMYCIN 0.75 GM in IV D5W 250 ML IV SCH (09:11)
[2023-03-05] MEDS: CRANBERRY EXTRACT 500 MG PO SCH (09:38)
[2023-03-05 13:00] VITALS: BP 123/52; TEMP 97.2; O2SAT 96
[2023-03-05] MEDS ORDERED: OMEP20TA5 PO (14:00)
[2023-03-05] MEDS: JEVITY 1.2 CAL 1,000 ML BOTTLE GT PRN (14:05)
--- NOTE | 2023-03-05 14:34 | NUR ---
RN NOTES PATIENT C/O ACHING LEFT SHOULDER PAIN, 5/10 SCALE. PRN TRAMADOL 50MG PO GIVEN AT 1431. WILL CONTINUE TO MONITOR AND REASSESS PT.
--- NOTE | 2023-03-05 14:52 | NUR ---
RN NOTES PT'S CIRILO NAQVI AT BEDSIDE, REQUESTED ONCOLOGY/HEMATOLOGY CONSULT FOR PT. LEFT MESSAGE TO DR. VARGAS.
[2023-03-05 16:00] VITALS: BP 116/57; TEMP 97.5; O2SAT 98
[2023-03-05] MEDS: ASCORBIC ACID 500 MG TABLET PO SCH (17:23)
[2023-03-05] MEDS: MULTIVIT W/MINERALS 1 TAB TABLET PO SCH (17:23)
[2023-03-05] MEDS: ZINC SULFATE 220 MG CAPSULE PO SCH (17:23)
--- NOTE | 2023-03-05 18:18 | NUR ---
PURCHASING MANAGER CLOSING NOTES PT AWAKE IN BED. A/O X3, ABLE TO MAKE NEEDS KNOWN. STABLE ON RA WITH NO SOB OR DISTRESS. DENIES PAIN AT THIS TIME. ON SUPERVISOR ALUMINUM BOAT ASSEMBLY READING SINUS RHYTHM, HR 67. IV ACCESS RFA #20G, PATENT, INTACT, FLUSHING WELL, INFUSING NS @ 75 ML/HR. ON G TUBE FEEDING WITH JEVITY 1.2 AT 60 ML/HR. WITH CHARLES CATH INTACT, DRAINING CLEAR YELLOW URINE. EDEMA NOTED ON L ELBOW. TURNED AND REPOSITIONED PER PROTOCOL. ALL CARE PROVIDED AND MEDS TOLERATED WELL. SAFETY MEASURES MAINTAINED: BED LOCKED AND IN LOW POSITION, SIDE RAILS UP X3, BED ALARM. WILL ENDORSE TO OYSTER CULLER NURSE FOR ELINA
--- NOTE | 2023-03-05 19:14 | NUR ---
STUDENT DEVELOPMENT COORDINATOR OPENING NOTES RECEIVED PT SLEEPING IN BED. A/O X3, ABLE TO MAKE NEEDS KNOWN. STABLE ON RA WITH NO SOB OR DISTRESS. DENIES PAIN AT THIS TIME. ON DISPATCH ASSOCIATE READING SINUS RHYTHM, HR 67. IV ACCESS RFA #20G, PATENT, INTACT, FLUSHING WELL, INFUSING NS @ 75 ML/HR. ON G TUBE FEEDING WITH JEVITY 1.2 AT 60 ML/HR. WITH CHARLES CATH INTACT, DRAINING BY GRAVITY. SAFETY MEASURES IN PLACE. BED LOCKED AND IN LOW POSITION, SIDE RAILS UP X3, BED ALARM. WILL CONTINUE TO MONITOR
[2023-03-05 20:00] VITALS: BP 115/57; TEMP 97.9; O2SAT 96
[2023-03-05] MEDS: AZITHROMYCIN 500 MG in IV D5W 250 ML IV SCH (22:45)
[2023-03-05] MEDS ORDERED: SILVER NITRATE APPLICATOR 1 EA BOX TP SCH (23:00)
[2023-03-05] MEDS: ATORVASTATIN 40 MG TABLET PO SCH (23:09)
[2023-03-06] VITALS (9 sets, daily range): BP systolic 116–141; BP diastolic 58–66; TEMP 97.7–98.2; O2SAT 70–99
[2023-03-06] MEDS: PIPERACILLIN /TAZOBACTAM 2.25 G in IV D5W 50 ML IV SCH ×2 (00:03→05:10)
--- NOTE | 2023-03-06 01:35 | NUR ---
RN NOTE; PATIENT MOVE TO RM 324-1 CLOSED TO STATION.PATIENT SAID TO ME SORRY FOR THE DRAMA EARLIER,I TOLD HER,PATIENT SAFETY IS OUR PRIORITY. Addendum: 03/06/23 at 0335 by OPAL VIVAR RN WRONG CHARTING.
[2023-03-06] MEDS: JEVITY 1.2 CAL 1,000 ML BOTTLE GT PRN ×2 (01:41→18:35)
[2023-03-06] MEDS ORDERED: VANCOMYCIN 1 GM in IV D5W 250ml IV SCH (03:00)
[2023-03-06 06:16] LABS: CALCIUM, SERUM 7.2 mg/dL (8.5-10.1); CARBON DIOXIDE 21 mmol/L (21-32); CHLORIDE 104 mmol/L (98-107); CREATININE 0.7 mg/dL (0.6-1.3); GLUCOSE 105 mg/dL (74-106); MAGNESIUM 1.3 mg/dL (1.8-2.4); PHOSPHORUS 2.4 mg/dL (2.5-4.9); POTASSIUM 3.3 mmol/L (3.5-5.1); SODIUM SERUM 134 mmol/L (136-145); UREA NITROGEN, BLOOD 17 mg/dL (7-18)
--- NOTE | 2023-03-06 06:23 | NUR ---
PATIENT ASSESSMENT COORDINATOR CLOSING NOTES Patient in bed; awake, a/o x 4. Stable on room air. In no acute distress. No c/o pain or discomfort. On telemetry monitoring with reading of SR with 67 bpm. With IV access on right FA# 20g; patent and intact infusing with NS 1L running @ 75 ml/hr; flushing well. With pablo catheter in place draining by gravity to yellow urine output. All needs met. All scheduled meds given. Safety precautions maintained. WILL ENDORSE TO INCOMING RN for continuity of care.
--- NOTE | 2023-03-06 06:55 | NUR ---
MECHANICAL TECH CLOSING NOTES; PT AWAKE IN BED. A/O X3, ABLE TO MAKE NEEDS KNOWN. ZIAD WELL ON RM AIR SAT 98% NO SOB/DISTRESS DURING SHIFT,IV ACCESS RFA #20G, PATENT, INTACT, FLUSHING WELL, INFUSING NS @ 75 ML/HR. ON G TUBE FEEDING WITH JEVITY 1.2 AT 60 ML/HR ZAID WELL,NO RESIDUAL NOTED,HOB ELEVATED AT ALL TIME,DUE MEDS GIVEN ORDER, WITH CHARLES CATH INTACT, DRAINING CLEAR YELLOW URINE OUT PUT,TURNED AND REPOSITIONED PER PROTOCOL. SAFETY MEASURES MAINTAINED: BED LOCKED AND IN LOW POSITION, SIDE RAILS UP X3, BED ALARM. WILL ENDORSE TO NEXT SHIFT.
[2023-03-06 06:58] LABS: BASOPHILS % (AUTO) 0.8 % (0.0-2.0); EOSINOPHILS % (AUTO) 7.4 % (0.0-6.0); LYMPHOCYTES # (AUTO) 0.8 K/uL (0.8-4.8); LYMPHOCYTES % (AUTO) 23.3 % (20.0-44.0); MEAN CORPUSCULAR HGB CONC 33 g/dl (31.0-36.0); MEAN CORPUSCULAR VOLUME 86 fL (80-96); MONOCYTES # (AUTO) 0.3 K/uL (0.1-1.30); MONOCYTES % (AUTO) 8.7 % (2.0-12.0); NEUTROPHILS # (AUTO) 2.1 K/uL (1.8-8.9); NEUTROPHILS % (AUTO) 59.8 % (43.0-81.0); PLATELET COUNT (AUTO) 172 K/uL (150-450); RED BLOOD CELL COUNT(AUTO) 2.31 MIL/uL (4.5-6.0); WHITE BLOOD COUNT (AUTO) 3.5 K/uL (4.3-11.0)
--- NOTE | 2023-03-06 07:25 | NUR ---
HOTEL FRONT DESK AGENT CLOSING NOTES; RECEIVED PT ASLEEP, AROUSABLE, A/O X3, ABLE TO MAKE NEEDS KNOWN. ON RM AIR SAT 98% NO SOB/DISTRESS DURING SHIFT,IV ACCESS RFA #20G, C/D/I, INFUSING NS @ 75 ML/HR. ON G TUBE FEEDING WITH JEVITY 1.2 AT 60 ML/HR TOLERATED WELL,NO RESIDUAL NOTED,HOB ELEVATED AT ALL TIMES,WITH CHARLES CATH INTACT, DRAINING CLEAR YELLOW URINE OUT,TURNED AND REPOSITIONED PER PROTOCOL. SAFETY MEASURES MAINTAINED: BED LOCKED AND IN LOW POSITION, SIDE RAILS UP X3, BED ALARM. WILL CONTINUE TO MONITOR Addendum: 03/06/23 at 1152 by DOMINIC TYSON JR, RN OPENING NOTES
[2023-03-06 08:01] LABS: HEMATOCRIT 20 % (39-51); HEMOGLOBIN 6.6 g/dL (13.5-17.5)
[2023-03-06 09:11] LABS: EOSINOPHILS % (MANUAL) 8 % (0-4); LYMPHOCYTES % (MANUAL) 20 % (16-48); MONOCYTES % (MANUAL) 6 % (0-11.0); NEUTROPHILS % (MANUAL) 66 (42-76)
[2023-03-06] MEDS: NIFEDIPINE XL 60 MG TAB.ER.24 PO SCH (09:40)
[2023-03-06] MEDS: METOPROLOL SUCCINATE 25 MG TAB.SR.24H PO SCH ×2 (09:40→17:47)
[2023-03-06] MEDS: BETHANECHOL CHLORIDE (10 MG) 10 MG TABLET PO SCH ×3 (09:40→17:45)
[2023-03-06] MEDS: hydrALAZINE HCL 50 MG TABLET PO SCH ×3 (09:44→17:46)
[2023-03-06] MEDS: LEVETIRACETAM (250 MG) 250 MG TABLET PO SCH ×2 (09:45→20:49)
[2023-03-06] MEDS: DOCUSATE SODIUM 100 MG CAPSULE PO SCH (09:45)
[2023-03-06] MEDS: ACETAMINOPHEN 325 MG TABLET PO SCH (09:47)
[2023-03-06] MEDS: ESCITALOPRAM OXALATE (10 MG) 10 MG TABLET PO SCH (09:47)
[2023-03-06] MEDS: PANTOPRAZOLE 40 MG VIAL IV SCH ×2 (09:48→17:44)
[2023-03-06] MEDS: PROSOURCE / PROSTAT (PYXIS) 30 ML UDC PO SCH ×2 (09:48→17:47)
[2023-03-06] MEDS: CRANBERRY EXTRACT 500 MG PO SCH (10:19)
--- NOTE | 2023-03-06 12:00 | NUR ---
Started blood transfusion at 1430, verified by two RNs, vitals taken prior to starting: BP-116/58; Temp-97.7; HR-58; RR-18; [id number].No other signs of hemolytic reactions was noted. Will continue to monitor
[2023-03-06] MEDS: ZOSYN IVPB 3.375 G in IV D5W 50ml IV SCH ×3 (12:12→23:56)
[2023-03-06] MEDS ORDERED: POTASSIUM CHLORIDE 20 MEQ POWDER PACKET NG SCH (12:30)
[2023-03-06] MEDS: Magnesium 1GM/D5W 100ML PREMIX 100 ML IV SCH ×4 (13:11→15:31)
[2023-03-06] MEDS: VANCOMYCIN HCL 0.75 GM in IV D5W 250 ML IV SCH (13:48)
--- NOTE | 2023-03-06 14:45 | NUR ---
Patient is undergoing blood transfusion. No transfusion reactions such as SOB, chills, headache, fever, back pain nor hives at this time. Vitals rechecked: BP-120/63; HR-59; Temp-97.9; RR-18.Will continue to monitor
[2023-03-06] MEDS ORDERED: Sodium Phosphate 15 MMOL in IV NS 0.9% 245 ML IV SCH (15:30)
[2023-03-06] MEDS: MULTIVIT W/MINERALS 1 TAB TABLET PO SCH (17:45)
[2023-03-06] MEDS: ZINC SULFATE 220 MG CAPSULE PO SCH (17:45)
[2023-03-06] MEDS: ASCORBIC ACID 500 MG TABLET PO SCH (17:46)
[2023-03-06 17:56] LABS: HEMOGLOBIN 8.6 g/dL (13.5-17.5)
--- NOTE | 2023-03-06 18:01 | NUR ---
Blood transfusion was ended, tolerated well VS: BP 118/60; HR-65; RR-18; Temp-97.9; [id number]
--- NOTE | 2023-03-06 19:40 | NUR ---
SOLUTION SPECIALIST CLOSING NOTES; PT AWAKE IN BED. A/O X3, ABLE TO MAKE NEEDS KNOWN. S/P 1 PACL PRBC. PENDING HGB POST TRANSFUSION. ON RM AIR SAT 98% NO SOB/DISTRESS DURING SHIFT,IV ACCESS RFA #20G, C/D/I, INFUSING NS @ 75 ML/HR. ON G TUBE FEEDING WITH JEVITY 1.2 AT 60 ML/HR ZAID WELL,NO RESIDUAL NOTED,HOB ELEVATED AT ALL TIME,DUE MEDS GIVEN ORDER, WITH CHARLES CATH INTACT, DRAINING CLEAR YELLOW URINE OUT PUT,TURNED AND REPOSITIONED PER PROTOCOL. SAFETY MEASURES MAINTAINED: BED LOCKED AND IN LOW POSITION, SIDE RAILS UP X3, BED ALARM. WILL ENDORSE TO NEXT SHIFT.
--- NOTE | 2023-03-06 19:58 | NUR ---
INTENSIVE CARE NURSE OPENING NOTES Received Patient in bed; awake, a/o x 4. Stable on room air. In no acute distress. No c/o pain or discomfort. On telemetry monitoring with reading of 61 bpm. With IV access on right wrist # 20g; patent and intact infusing with NS 1L running @ 75 ml/hr; flushing well. With pablo catheter in place draining by gravity. Safety measures in place. Will continue to monitor.
[2023-03-06] MEDS ORDERED: SILVER NITRATE APPLICATOR 1 EA BOX TP SCH (21:00)
[2023-03-06] MEDS: AZITHROMYCIN 500 MG in IV D5W 250 ML IV SCH (21:54)
[2023-03-06] MEDS: ATORVASTATIN 40 MG TABLET PO SCH (21:54)
--- NOTE | 2023-03-06 23:50 | NUR ---
TELERN REFERENCE: KAYKAY EXTREMITIES US WITH POSITIVE THROMBUS. DR. Parmjit MONTELONGO NOTIFIED. AWAITING FOR FURTHER ORDERS. Addendum: 03/07/23 at 0009 by LIDIA JULES RN NEARLY OCCLUSIVE THROMBUS ON LEFT FEMORAL.
[2023-03-07] VITALS: BP 115/59; TEMP 97.5; O2SAT 95
--- NOTE | 2023-03-07 | NUR ---
TELERN ORDERS RECEIVED. NO ANTICOAGULANTS FOR NOW , NEED VASCULAR CONSULT DR. DUMONT TO SEE PATIENT . WILL ENDORSED TO INCOMING RN IN AM.
[2023-03-07] MEDS: VANCOMYCIN HCL 0.75 GM in IV D5W 250 ML IV SCH (00:50)
[2023-03-07 00:54] LABS: HEMOGLOBIN 8.3 g/dL (13.5-17.5)
[2023-03-07] MEDS: IV NS 0.9% 1,000 ML IV PRN ×2 (02:33→16:52)
[2023-03-07] MEDS: ZOSYN IVPB 3.375 G in IV D5W 50ml IV SCH ×3 (05:09→17:29)
[2023-03-07 06:34] LABS: BASOPHILS % (AUTO) 0.8 % (0.0-2.0); EOSINOPHILS % (AUTO) 11.3 % (0.0-6.0); HEMATOCRIT 25 % (39-51); HEMOGLOBIN 8.4 g/dL (13.5-17.5); LYMPHOCYTES # (AUTO) 0.8 K/uL (0.8-4.8); MEAN CORPUSCULAR HGB CONC 33 g/dl (31.0-36.0); MEAN CORPUSCULAR VOLUME 86 fL (80-96); MONOCYTES # (AUTO) 0.3 K/uL (0.1-1.30); MONOCYTES % (AUTO) 9.6 % (2.0-12.0); NEUTROPHILS % (AUTO) 56.3 % (43.0-81.0); PLATELET COUNT (AUTO) 176 K/uL (150-450); RED BLOOD CELL COUNT(AUTO) 2.95 MIL/uL (4.5-6.0); WHITE BLOOD COUNT (AUTO) 3.5 K/uL (4.3-11.0)
--- NOTE | 2023-03-07 06:50 | NUR ---
Patient in bed; awake, a/o x 4. Stable on room air. In no acute distress. No c/o pain or discomfort. On telemetry monitoring with reading SR66o bpm. With IV access on LHand # 22g;All needs were attended. Scheduled meds given. Wound care done. With pablo catheter in place draining by gravity. Safety measures maintained at all times. Will endorse to the incoming RN. Addendum: 03/07/23 at 0655 by LIDIA ALVARADO RN RN CLOSING NOTES IV ACCESS ON R HAND #22G Addendum: 03/07/23 at 0733 by LIDIA ALVARADO RN WRONG ENTRY
[2023-03-07 06:54] LABS: CALCIUM, SERUM 8.3 mg/dL (8.5-10.1); CARBON DIOXIDE 24 mmol/L (21-32); CHLORIDE 98 mmol/L (98-107); GLUCOSE 143 mg/dL (74-106); POTASSIUM 3.4 mmol/L (3.5-5.1); SODIUM SERUM 129 mmol/L (136-145); UREA NITROGEN, BLOOD 18 mg/dL (7-18)
--- NOTE | 2023-03-07 07:00 | NUR ---
SHIRA NOTES STATUS POST NS 500 ML BOLUS WITH BLOOD PRESSURE 95/55. WILL CONTINUE TO MONITOR. Addendum: 03/07/23 at 0730 by LIDIA ALVARADO RN WRONG ENTRY
--- NOTE | 2023-03-07 07:30 | NUR ---
RN OPENING NOTE RECEIVED PATIENT IN BED, ASLEEP, EASILY AWAKENED. NO SIGNS OF ACUTE DISTRESS NOTED. ON ROOM AIR. NO SOB NOTED, BREATHING EVEN AND UNLABORED. DENIOES ANY PAIN AT THIS TIME. NOTED WITH IV ACCESS ON RIGHT FOREARM #20G, INTACT AND PATENT WITH NS @75 ML/HR RUNNING. ALSO NOTED WITH G-TUBE, INTACT AND PATENT, WITH JEVITY 1.2 @60 ML/HR, TOLERATING WELL. F/C INTACT, DRAINING CLEAR YELLOW URINE. SAFETY MEASURE IN PLACE. BED IN LOW AND LOCKED POSITION, HOB ELEVATED, SIDE RAILS UP X2, CALL LIGHT PLACED WITHIN EASY REACH. WILL CONTINUE TO MONITOR PATIENT.
--- NOTE | 2023-03-07 07:33 | NUR ---
RN CLOSING NOTES PATIENT AWAKE IN BED. A/O X 3. ON ROOM AIR SATURATING WELL NO EPISODE OF NOTED AT THIS TIME. ON TELEMONITOR WITH CURRENT READING OF 70. NO CHEST PAIN OR ANY DISTRESS NOTED. WITH IV ACCESS ON RFA #20G WITH NS @75ML/HR, INFUSING WELL NO SWELLING OR INFILTRATION NOTED. ON BEDREST ON CHARLES CATHETER CONNECTED TO URINE BAG NOTED URINE OUTPUT. PATIENT IS ON GTUBE JEVITY 1.2 RUNNING AT 60 ML/HR. PM CARE RENDERED. ALL SCHEDULED MEDS GIVEN ORDERED. KEPT BED LOW IN LOCKED POSITION. KEPT SIDERAILS UP. KEPT CALL LIGHT WITHIN AT REACH. WILL ENDORSE TO AM SHIFT FOR ELINA.
[2023-03-07 07:37] VITALS: BP 115/52; TEMP 98.6
[2023-03-07] MEDS: CRANBERRY EXTRACT 500 MG PO SCH (08:15)
[2023-03-07] MEDS: PANTOPRAZOLE 40 MG VIAL IV SCH ×2 (08:15→16:41)
[2023-03-07] MEDS: ESCITALOPRAM OXALATE (10 MG) 10 MG TABLET PO SCH (08:16)
[2023-03-07] MEDS: NIFEDIPINE XL 60 MG TAB.ER.24 PO SCH (08:16)
[2023-03-07] MEDS: DOCUSATE SODIUM 100 MG CAPSULE PO SCH (08:16)
[2023-03-07] MEDS: LEVETIRACETAM (250 MG) 250 MG TABLET PO SCH ×2 (08:16→21:12)
[2023-03-07] MEDS: hydrALAZINE HCL 50 MG TABLET PO SCH ×3 (08:16→16:42)
[2023-03-07] MEDS: BETHANECHOL CHLORIDE (10 MG) 10 MG TABLET PO SCH ×3 (08:16→16:41)
[2023-03-07] MEDS: ACETAMINOPHEN 325 MG TABLET PO SCH (08:16)
[2023-03-07] MEDS: METOPROLOL SUCCINATE 25 MG TAB.SR.24H PO SCH ×2 (08:17→16:42)
[2023-03-07] MEDS: PROSOURCE / PROSTAT (PYXIS) 30 ML UDC PO SCH ×2 (08:17→16:42)
--- NOTE | 2023-03-07 08:30 | NUR ---
RN NOTE PATIENT'S G-TUBE FEEDING WITHHELD. PATIENT ON NPO EXCEPT MEDS FOR POSSIBLE PROCEDURE PER MD.
[2023-03-07] MEDS: POTASSIUM CL. PREMIX PERIPHER. 50 ML IV SCH ×2 (09:08→10:08)
--- NOTE | 2023-03-07 10:33 | NUR ---
RN NOTE SEEN AND EXAMINED BY DR. DUMONT WITH ORDERS CARRIED POUT. PATIENT FOR IVC FILTER PLACEMENT TOMORROW MORNING.
[2023-03-07 16:00] VITALS: BP 133/64; TEMP 97.2; O2SAT 98
[2023-03-07] MEDS: ZINC SULFATE 220 MG CAPSULE PO SCH (17:02)
[2023-03-07] MEDS: ASCORBIC ACID 500 MG TABLET PO SCH (17:02)
[2023-03-07] MEDS: MULTIVIT W/MINERALS 1 TAB TABLET PO SCH (17:02)
--- NOTE | 2023-03-07 18:36 | NUR ---
RN CLOSING NOTE PATIENT IN BED, ASLEEP, EASILY AWAKENED. NO SIGNS OF ACUTE DISTRESS NOTED. REMAINS STABLE ON ROOM AIR. NO SOB NOTED, BREATHING EVEN AND UNLABORED. DENIED ANY PAIN. ON CARDIAC MONITORING SHOWING SINUS RHYTHM, HR @73. IV ACCESS ON RIGHT FOREARM #20G, INTACT AND PATENT WITH NS @75 ML/HR RUNNING. WITH G-TUBE, INTACT AND PATENT, WITH JEVITY 1.2 @60 ML/HR, TOLERATING WELL. SOFT DIET ALSO TOLERATED WELL. F/C INTACT, DRAINING CLEAR YELLOW URINE. SAFETY MEASURE MAINTAINED BED IN LOW AND LOCKED POSITION, HOB ELEVATED, SIDE RAILS UP X2, CALL LIGHT PLACED WITHIN EASY REACH. WILL ENDORSE TO NEXT SHIFT FOR CONTINUITY OF CARE.
[2023-03-07] MEDS: JEVITY 1.2 CAL 1,000 ML BOTTLE GT PRN (19:26)
--- NOTE | 2023-03-07 19:30 | NUR ---
PHOTO STUDIO ASSISTANT OPENING NOTES RECEIVED PATIENT IN BED AWAKE, WATCHING TV. A/O X 4. ON ROOM AIR, BREATHING EVEN AND UNLABORED, NO S/S OF SOB OR DISTRESS NOTED. DENIED ANY PAIN. ON CARDIAC MONITORING SHOWING SINUS RHYTHM, HR @73. IV ACCESS ON RFA #20G RUNNING NS @75 ML/HR, INFUSING WELL. WITH G-TUBE, INTACT AND PATENT, WITH JEVITY 1.2 @60 ML/HR, TOLERATING WELL. SOFT DIET ALSO TOLERATED WELL. ON CHARLES CATH DRAINING CLEAR YELLOW URINE. SAFETY MEASURE IN PLACE WITH BED IN LOW AND LOCKED POSITION. HOB ELEVATED. SIDE RAILS UP X2. CALL LIGHT PLACED WITHIN EASY REACH. WILL CONTINUE WITH THE PLAN OF CARE.
[2023-03-07 20:00] VITALS: BP 122/59; TEMP 97.7; O2SAT 94
[2023-03-07] MEDS: VANCOMYCIN 1 GM in IV D5W 250ml IV SCH (20:47)
[2023-03-07] MEDS: ATORVASTATIN 40 MG TABLET PO SCH (21:12)
[2023-03-08] VITALS (7 sets, daily range): BP systolic 95–140; BP diastolic 48–72; TEMP 97.6–98.3; O2SAT 95–97
[2023-03-08] MEDS: ZOSYN IVPB 3.375 G in IV D5W 50ml IV SCH ×5 (00:47→23:11)
[2023-03-08 00:55] LABS: HEMOGLOBIN 8.8 g/dL (13.5-17.5)
[2023-03-08] MEDS: IV NS 0.9% 1,000 ML IV PRN (04:37)
[2023-03-08 05:58] LABS: BASOPHILS % (AUTO) 0.8 % (0.0-2.0); EOSINOPHILS % (AUTO) 11.2 % (0.0-6.0); HEMATOCRIT 27 % (39-51); HEMOGLOBIN 8.8 g/dL (13.5-17.5); LYMPHOCYTES # (AUTO) 0.9 K/uL (0.8-4.8); LYMPHOCYTES % (AUTO) 19.8 % (20.0-44.0); MEAN CORPUSCULAR HGB CONC 33 g/dl (31.0-36.0); MEAN CORPUSCULAR VOLUME 86 fL (80-96); MONOCYTES # (AUTO) 0.5 K/uL (0.1-1.30); MONOCYTES % (AUTO) 9.5 % (2.0-12.0); NEUTROPHILS # (AUTO) 2.8 K/uL (1.8-8.9); NEUTROPHILS % (AUTO) 58.7 % (43.0-81.0); PLATELET COUNT (AUTO) 193 K/uL (150-450); RED BLOOD CELL COUNT(AUTO) 3.08 MIL/uL (4.5-6.0); WHITE BLOOD COUNT (AUTO) 4.7 K/uL (4.3-11.0)
[2023-03-08 06:13] LABS: CALCIUM, SERUM 8.3 mg/dL (8.5-10.1); CREATININE 0.8 mg/dL (0.6-1.3); POTASSIUM 3.5 mmol/L (3.5-5.1)
[2023-03-08] MEDS ORDERED: IOHEXOL 0 ML IV ONE (06:39)
[2023-03-08] MEDS ORDERED: BUPIVACAINE 0.5 % PF 150 MG/30 ML VIAL ONE (06:39)
[2023-03-08] MEDS ORDERED: LIDOCAINE 1% INJ 50 ML MDV IJ ONE (06:40)
[2023-03-08] MEDS ORDERED: ANESTHESIA TRAY IN PYXIS 1 EA TRAY MC ONE (06:40)
--- NOTE | 2023-03-08 06:40 | NUR ---
CENTER RECEPTIONIST CLOSING NOTES PATIENT IN BED RESTING COMFORTABLY. A/O X 4. ON ROOM AIR, BREATHING EVEN AND UNLABORED, NO S/S OF SOB OR DISTRESS NOTED. DENIED ANY PAIN. ON CARDIAC MONITORING SHOWING SINUS RHYTHM, HR @82. IV ACCESS ON RFA #20G RUNNING NS @75 ML/HR, INFUSING WELL. PATIENT WITH G-TUBE, INTACT AND PATENT, AND WAS HELD AT 00:00 FOR NPO EXCEPT MEDS DIET. PATIENT IS SCHEDULED FOR IVF FILTER INSERTION. ON CHARLES CATH DRAINED 1900CC OF CLEAR YELLOW URINE. WOUND CARE DONE. CONSENTS SIGNED FOR THE PROCEDURE AND CHECKLIST DONE. PATIENT IS COOPERATIVE TO CARE. SAFETY MEASURES MAINTAINED DURING SHIFT. WILL ENDORSE TO THE NEXT SHIFT FOR CONTINUITY OF CARE.
[2023-03-08] MEDS ORDERED: IOHEXOL 240MG/ML 50 ML IV ONE (06:49)
--- NOTE | 2023-03-08 07:00 | NUR ---
MS SHIRA NOTES RECEIVED ENDORSEMENT OF REPORT FROM SHIRA PACHECO. PATIENT'S IN SURGERY(OR) AT THE MOMENT FOR IVF FILTER INSERTION.
[2023-03-08] MEDS ORDERED: FENTANYL PF 100MCG/2ML AMPUL ONE (07:24)
[2023-03-08 09:12] LABS: HEMOGLOBIN 8.7 g/dL (13.5-17.5)
[2023-03-08] MEDS ORDERED: JEVITY 1.2 CAL 1,000 ML BOTTLE GT PRN (09:30)
[2023-03-08] MEDS: PANTOPRAZOLE 40 MG VIAL IV SCH ×2 (09:42→17:37)
[2023-03-08] MEDS: LEVETIRACETAM (250 MG) 250 MG TABLET PO SCH ×2 (09:42→21:19)
[2023-03-08] MEDS: ACETAMINOPHEN 325 MG TABLET PO SCH (09:42)
[2023-03-08] MEDS: ESCITALOPRAM OXALATE (10 MG) 10 MG TABLET PO SCH (09:43)
[2023-03-08] MEDS: BETHANECHOL CHLORIDE (10 MG) 10 MG TABLET PO SCH ×3 (09:43→17:37)
[2023-03-08] MEDS: NIFEDIPINE XL 60 MG TAB.ER.24 PO SCH (09:43)
[2023-03-08] MEDS: DOCUSATE SODIUM 100 MG CAPSULE PO SCH (09:43)
[2023-03-08] MEDS: hydrALAZINE HCL 50 MG TABLET PO SCH ×3 (09:43→17:00)
[2023-03-08] MEDS: PROSOURCE / PROSTAT (PYXIS) 30 ML UDC PO SCH ×2 (09:44→17:37)
[2023-03-08] MEDS: METOPROLOL SUCCINATE 25 MG TAB.SR.24H PO SCH ×2 (09:44→17:40)
[2023-03-08] MEDS: CRANBERRY EXTRACT 500 MG PO SCH ×2 (10:00→10:27)
[2023-03-08] MEDS: ANCEF 1 GM/50 ML D5W IV SCH ×4 (11:06→18:40)
--- NOTE | 2023-03-08 12:18 | NUR ---
LINSEED OIL ORDER FILLER NOTES HELD HYDRALAZINE HCL 100MG TAB PATIENT'S BLOOD PRESSURE IS 95/48. WILL CONTINUE TO MONITOR.
--- NOTE | 2023-03-08 12:52 | NUR ---
GEAR MACHINE OPERATOR GENERAL NOTES RECEIVED PATIENT VIA GURNEY FROM OR WITH 2 OR STAFF. RECEIVED ENDORSEMENT FROM SHIRA CALERO. PATIENT IS S/P INFERIOR VENA CAVA FILTER PLACEMENT. PATIENT IS A/O X 4. PATIENT IS ON ROOM AIR, BREATHING EVEN AND UNLABORED, NO S/S OF SOB OR DISTRESS NOTED. DENIED ANY PAIN AT THIS TIME. PATIENT ON TELEMETRY MONITORINGWITH CURRENT READING OF SINUS RHYTHM-HR; 64BPM. VITAL SIGNS IS STABLE AND WNL. NOTED WITH IV ACCESS ON RFA #20G-RESUMED NS @75 ML/HR; INFUSING WELL. PATIENT IS WITH G-TUBE, INTACT AND PATENT;RESUMED JEVITY 1.2 AT 60ML/HR. CHARLES CATH IN PLACE, DRAINING YELLOW COLORED URINE VIA GRAVITY. SAFETY MEASURES IN PLACE: BED IN LOW AND LOCKED POSITION; SIDE RAILS UP X3; CALL LIGHT AND TABLE WITHIN EASY REACH.BED ALARM ON. WILL CONTINUE WITH PLAN OF CARE. Addendum: 03/08/23 at 1253 by LIDIA PATRICK RN RECEIVED FROM OR AT [id number].
[2023-03-08] MEDS: VANCOMYCIN 1 GM in IV D5W 250ml IV SCH (13:15)
[2023-03-08 16:52] LABS: HEMOGLOBIN 9.2 g/dL (13.5-17.5)
[2023-03-08] MEDS: ZINC SULFATE 220 MG CAPSULE PO SCH (17:37)
[2023-03-08] MEDS: ASCORBIC ACID 500 MG TABLET PO SCH (17:38)
[2023-03-08] MEDS: MULTIVIT W/MINERALS 1 TAB TABLET PO SCH (17:38)
--- NOTE | 2023-03-08 19:17 | NUR ---
OPERATIONS CLERK CLOSING NOTES PATIENT IN BED, ASLEEP BUT EASY TO AROUSE; A/O X 4. NO SIGNS OF ACUTE DISTRESS NOTED. ON ROOM AIR TOLERATING WELL. NO SOB, BREATHING EVEN AND UNLABORED. PATIENT IS S/P INFERIOR VENA CAVA FILTER PLACEMENT; WITH SURGICAL SITE CLEAN AND INTACT. DENIED ANY PAIN AT THIS TIME. PATIENT ON TELEMETRY MONITORING WITH CURRENT READING OF SINUS RHYTHM-HR; 73BPM. NOTED WITH IV ACCESS ON RFA #20G-RUNNING WITH NS @75 ML/HR; INFUSING WELL. PATIENT IS WITH G-TUBE, INTACT AND PATENT;RUNNING WITH JEVITY 1.2 AT 60ML/HR. CHARLES CATH IN PLACE, DRAINING YELLOW COLORED URINE VIA GRAVITY-DRAINED 1000ML. WOUND CARE DONE DURING THE SHIFT. ALL DUE MEDS GIVEN. ALL NURSING NEEDS ATTENDED. SAFETY MEASURES IMPLEMENTED; BED LOCKED AND IN LOW POSITION, SIDE RAILS UP X3. CALL LIGHT AND TABLE WITHIN EASY REACH.BED ALARM ON. WILL ENDORSE TO ORNAMENTAL IRON WORKER NURSE FOR CONTINUITY OF CARE.
--- NOTE | 2023-03-08 19:31 | NUR ---
RN OPENING NOTE PATIENT AWAKE IN BED. A/OX3. NO S/S OF DISTRESS; BREATHING WITHOUT DIFFICULTY ON ROOM AIR. TELE READS SR 68. RFA #20 INTACT AND PATENT W/ NS 75ML/HR. JEVITY 1.2 RUNNING AT 60ML/HR. SAFETY MEASURES IN PLACE: BED LOCKED AND AT LOWEST POSITION, RAILS UP X2, CALL ROSSI WITHIN REACH. WILL CONTINUE TO MONITOR PATIENT.
[2023-03-08] MEDS: ATORVASTATIN 40 MG TABLET PO SCH (21:19)
[2023-03-09 00:47] LABS: HEMOGLOBIN 8.7 g/dL (13.5-17.5)
[2023-03-09] MEDS: IV NS 0.9% 1,000 ML IV PRN (01:33)
[2023-03-09 04:23] VITALS: BP 126/79; TEMP 98; O2SAT 96
[2023-03-09] MEDS: ZOSYN IVPB 3.375 G in IV D5W 50ml IV SCH (05:04)
--- NOTE | 2023-03-09 06:38 | NUR ---
RN CLOSING NOTE PATIENT AWAKE IN BED. A/OX2-3. NO S/S OF DISTRESS, BREATHING WITHOUT DIFFICULTY ON ROOM AIR. TELE READS SR 68. RFA #20 INTACT AND PATENT W/ NS 75ML/HR. JEVITY 1.2 RUNNING AT 60ML/HR. SAFETY MEASURES IN PLACE: BED LOCKED AND AT LOWEST POSITION, RAILS UP X2, CALL ROSSI WITHIN REACH. WILL ENDORSE TO NEXT SHIFT FOR ELINA.
[2023-03-09 06:56] LABS: CALCIUM, SERUM 8.4 mg/dL (8.5-10.1); CREATININE 0.9 mg/dL (0.6-1.3); POTASSIUM 3.3 mmol/L (3.5-5.1)
[2023-03-09 07:00] VITALS: BP 149/82; TEMP 97.7; O2SAT 96
--- NOTE | 2023-03-09 07:40 | NUR ---
CHEESEMAKER OPENING NOTE RECEIVED PATIENT SLEEPING IN BED. NO S/S OF DISTRESS; BREATHING WITHOUT DIFFICULTY ON ROOM AIR. TELE READS SR 66. WITH IV ACCESS ON RFA #20 INTACT AND PATENT W/ NS 75ML/HR. JEVITY 1.2 RUNNING AT 60ML/HR. WITH CHARLES CATHETER DRAINING CLEAR YELLOW URINE OUTPUT. SAFETY MEASURES IN PLACE: BED LOCKED AND AT LOWEST POSITION, RAILS UP X2, CALL ROSSI WITHIN REACH. WILL CONTINUE TO MONITOR PATIENT.
[2023-03-09] MEDS: VANCOMYCIN 1 GM in IV D5W 250ml IV SCH (07:44)
--- NOTE | 2023-03-09 07:46 | NUR ---
RN NOTES DUE 0800 VANCOMYCIN IV ON HOLD PER LEVEL ORDER. VANCOMYCIN TROUGH : 21
[2023-03-09 08:09] LABS: HEMOGLOBIN 8.5 g/dL (13.5-17.5)
[2023-03-09] MEDS: PANTOPRAZOLE 40 MG VIAL IV SCH ×2 (08:28→16:19)
[2023-03-09] MEDS: BETHANECHOL CHLORIDE (10 MG) 10 MG TABLET PO SCH ×3 (08:29→16:18)
[2023-03-09] MEDS: LEVETIRACETAM (250 MG) 250 MG TABLET PO SCH (08:29)
[2023-03-09] MEDS: DOCUSATE SODIUM 100 MG CAPSULE PO SCH (08:29)
[2023-03-09] MEDS: ESCITALOPRAM OXALATE (10 MG) 10 MG TABLET PO SCH (08:29)
[2023-03-09] MEDS: ACETAMINOPHEN 325 MG TABLET PO SCH (08:29)
[2023-03-09] MEDS: hydrALAZINE HCL 50 MG TABLET PO SCH ×3 (08:30→16:18)
[2023-03-09] MEDS: NIFEDIPINE XL 60 MG TAB.ER.24 PO SCH (08:30)
[2023-03-09] MEDS: METOPROLOL SUCCINATE 25 MG TAB.SR.24H PO SCH ×2 (08:31→16:17)
[2023-03-09] MEDS: PROSOURCE / PROSTAT (PYXIS) 30 ML UDC PO SCH ×2 (08:54→16:16)
[2023-03-09] MEDS ORDERED: POTASSIUM CHLORIDE 20 MEQ POWDER PACKET NG SCH (09:00)
[2023-03-09] MEDS ORDERED: CEFEPIME 2 GM in IV D5W 100 ML IV SCH (09:00)
[2023-03-09] MEDS ORDERED: POTASSIUM CHLORIDE 20 MEQ POWDER PACKET NG ONE (09:00)
[2023-03-09] MEDS: CRANBERRY EXTRACT 500 MG PO SCH (09:00)
[2023-03-09] MEDS ORDERED: ACET325T53 PO (09:30)
[2023-03-09] MEDS ORDERED: CEFE2FRO IV (09:30)
[2023-03-09] MEDS ORDERED: DOCU100C36 PO (09:30)
[2023-03-09] MEDS ORDERED: PANT20TA2 PO (09:30)
[2023-03-09] MEDS ORDERED: LACT-209 GT (09:30)
[2023-03-09] MEDS ORDERED: VANC1PLA9 IV (09:30)
--- NOTE | 2023-03-09 12:05 | NUR ---
RN NOTES PICC LINE SHIRA MATHEW INSERTED MIDLINE ON CHRISTIANO G#18 W/O PROBLEM.
--- NOTE | 2023-03-09 12:14 | NUR ---
RN NOTES RAPID COVID-19 SWAB DONE AND BROUGHT SPECIMEN TO LAB. WILL F/U RESULT
[2023-03-09] MEDS ORDERED: VANCOMYCIN 1 GM in IV D5W 250ml IV SCH (14:00)
[2023-03-09 16:18] VITALS: BP 127/60
[2023-03-09] MEDS ORDERED: POTASSIUM CHLORIDE 20 MEQ POWDER PACKET PO SCH (17:00)
--- NOTE | 2023-03-09 17:08 | NUR ---
RN DISCHARGED NOTES PATIENT DISCHARGED TO [facility] IN STABLE CONDITION. A/O X3. ABLE TO COMMUNICATE VERBALLY WITH SOME CONFUSION AND FORGETFULNESS. PATIENT IS BREATHING EVENLY AND UNLABORED ON ROOM AIR, NO SIGNS OF ACUTE DISTRESS NOTED. PATIENT'S BELONGINGS ACCOUNTED FOR, BELONGING SHEET SIGNED BY CIRILO WALDROP. PHOTOS OF SKIN ISSUES TAKEN AND FILED ON HIS CHART. CALLED AND D/C INSTRUCTIONS GIVEN TO LUCERO SCHROEDER OF [facility] AND SHE VERBALIZED UNDERSTANDING. J-TUBE IN PLACE AND PATENT. IV ACCESS ON RFA G#20 REMOVED, NO ACTIVE BLEEDING NOTED, DRY DRESSING APPLIED AT SITE. CHRISTIANO MIDLINE G#18 KEPT INTACT, PT WILL CONTINUE TO RECEIVED IV ANTIBIOTICS AT THE [facility] PER MD ORDER. CHARLES CATHETER IN PLACE AND ACTIVELY DRAINING CLEAR YELLOW URINE. PATIENT LEFT UNIT VIA GURNEY AT 1700 ACCOMPANIED BY 2 EMT'S FROM [facility]. AND CHARGE NURSE AWARE ON D/C.
== END 2023-03-09 16:54 | DRG 193 ==
LOC: ER 19:52 → MED 03-03 00:10 → TELE 03-03 00:16
PROVIDERS: ADMIT Nurse Practitioner Acute Care; ATTEND Internal Medicine
PROC: 30233N1 Transfusion of Nonautologous Red Blood Cells into Peripheral Vein, Percutaneous Approach (ICD-10-PCS; 2023-03-06)
PROC: 06H03DZ Insertion of Intraluminal Device into Inferior Vena Cava, Percutaneous Approach (ICD-10-PCS; principal; 2023-03-08)
PROC: B519YZZ Fluoroscopy of Inferior Vena Cava using Other Contrast (ICD-10-PCS; 2023-03-08)
PROC: 05HB33Z Insertion of Infusion Device into Right Basilic Vein, Percutaneous Approach (ICD-10-PCS; 2023-03-09)
DX: J15.9 Unspecified bacterial pneumonia (principal); G93.41 Metabolic encephalopathy; N17.0 Acute kidney failure with tubular necrosis; D68.59 Other primary thrombophilia; E87.1 Hypo-osmolality and hyponatremia; E44.0 Moderate protein-calorie malnutrition; N13.6 Pyonephrosis; C90.00 Multiple myeloma not having achieved remission; R64 Cachexia; Z68.1 Body mass index [BMI] 19.9 or less, adult; D62 Acute posthemorrhagic anemia; I82.512 Chronic embolism and thrombosis of left femoral vein; I82.5Z2 Chronic embolism and thrombosis of unspecified deep veins of left distal lower extremity; N18.9 Chronic kidney disease, unspecified; Z20.822 Contact with and (suspected) exposure to COVID-19; G30.9 Alzheimer's disease, unspecified; F02.80 Dementia in other diseases classified elsewhere, unspecified severity, without behavioral disturbance, psychotic disturbance, mood disturbance, and anxiety; Z86.73 Personal history of transient ischemic attack (TIA), and cerebral infarction without residual deficits; M15.9 Polyosteoarthritis, unspecified; I12.9 Hypertensive chronic kidney disease with stage 1 through stage 4 chronic kidney disease, or unspecified chronic kidney disease; R13.10 Dysphagia, unspecified; Z88.6 Allergy status to analgesic agent; Z91.011 Allergy to milk products; Z79.01 Long term (current) use of anticoagulants; Z79.899 Other long term (current) drug therapy; N32.89 Other specified disorders of bladder; G40.909 Epilepsy, unspecified, not intractable, without status epilepticus; E86.1 Hypovolemia; D63.8 Anemia in other chronic diseases classified elsewhere; Z87.19 Personal history of other diseases of the digestive system; I25.10 Atherosclerotic heart disease of native coronary artery without angina pectoris; E88.09 Other disorders of plasma-protein metabolism, not elsewhere classified; E78.5 Hyperlipidemia, unspecified; Z74.09 Other reduced mobility; R33.9 Retention of urine, unspecified; N32.3 Diverticulum of bladder; S51.812A Laceration without foreign body of left forearm, initial encounter; X58.XXXA Exposure to other specified factors, initial encounter; Y92.9 Unspecified place or not applicable; Z93.1 Gastrostomy status; E83.39 Other disorders of phosphorus metabolism; D50.9 Iron deficiency anemia, unspecified
CPT/HCPCS: 36415; 71045-TC; 73080-TC; 74018; 80048-TC; 80076-TC; 80202-TC; 81001; 82962-TC; 83690-TC; 83735-TC; 84100-TC; 84484-TC; 85025-TC; 85027-TC; 85730-TC; 86850-TC; 87086-TC; 92526; 92611-TC; 93970-TC; 97110-TC; 97530-TC; A4217; A4223; A4649; A6253; A9563; C1769; C1880; C9113; G0378; J0456; J0690; J0692; J1644; J2405; J2543; J2704; J3010; J3370; J3475; J3480; J3490; J7030; J7040; J7050; J7060; P9016; Q9966; Q9967

== ENCOUNTER 2023-05-02 14:25 | Inpatient (IN) | payer MEDICARE, BC ==
[~2023-05-02] VITALS: Ht 182.9 cm; Wt 74.4 kg
[~2023-05-02 14:25] MED LIST changes: -ACET-868 PO; +ACET325T53 PO; -AMIN30LI2 PO; -APIX2.5T PO; -ASCO-352 PO; +BETH10TA4 GT; -BETH10TA4 PO; -BISA10SU11 RC; +CEFE2FRO IV; -CEPH250S PO; -CLON0.1T PO; -CRAN425C6 PO; -DILT30TA14 GT; -DOCU-141 PO; +DOCU100C36 PO; +ESCI10TA GT; -ESCI10TA PO; +HYDR100T27 GT; -HYDR100T27 PO; +LACT-209 GT; -MAG30ORA PO; -MAGN400O6 PO; -MULT-447 PO; -NA P133E RC; -NUTR250L50 GT; +PANT20TA2 PO; -PANT40SU2 GT; -PANT40TA2 PO; -TRAM50TA2 PO; +VANC1PLA9 IV; -ZINC50TA69 PO
[2023-05-02] MEDS ORDERED: IV NS 0.9% 500 ML BAG IV ONE (15:00)
[2023-05-02 15:30] LABS: BASOPHILS % (AUTO) 0.1 % (0.0-2.0); HEMATOCRIT 35 % (39-51); HEMOGLOBIN 11.7 g/dL (13.5-17.5); LYMPHOCYTES # (AUTO) 1.1 K/uL (0.8-4.8); LYMPHOCYTES % (AUTO) 8.5 % (20.0-44.0); MEAN CORPUSCULAR HEMOGLOBIN 29 PG (26.0-33.0); MEAN CORPUSCULAR HGB CONC 34 g/dl (31.0-36.0); MEAN CORPUSCULAR VOLUME 85 fL (80-96); MONOCYTES # (AUTO) 1.2 K/uL (0.1-1.30); MONOCYTES % (AUTO) 8.6 % (2.0-12.0); NEUTROPHILS # (AUTO) 11.2 K/uL (1.8-8.9); NEUTROPHILS % (AUTO) 82.8 % (43.0-81.0); PLATELET COUNT (AUTO) 310 K/uL (150-450); RED BLOOD CELL COUNT(AUTO) 4.06 MIL/uL (4.5-6.0); RED CELL DISTRIBUTION WIDTH 16.1 % (11.5-15.0); WHITE BLOOD COUNT (AUTO) 13.5 K/uL (4.3-11.0)
[2023-05-02 16:35] LABS: APPEARANCE,URINE CLOUDY (CLEAR); BILIRUBIN,URINE NEGATIVE (NEGATIVE); BLOOD, URINE TRACE-INTA Ery/uL (NEGATIVE); COLOR,URINE YELLOW (YELLOW); KETONES,URINE NEGATIVE (NEGATIVE); LEUKOCYTE ESTERASE ,URINE 2+ (NEGATIVE); NITRITE, URINE NEGATIVE (NEGATIVE); PROTEIN,URINE 1+ mg/dl (NEGATIVE); UGLUCOSE NEGATIVE (NEGATIVE); UROBILINOGEN,URINE 0.2 EU/dL (0.2)
[2023-05-02] MEDS ORDERED: TRAM50TA2 GT (16:38)
[2023-05-02] MEDS ORDERED: AMLO10TA4 GT (16:38)
[2023-05-02] MEDS ORDERED: ACET-868 GT (16:38)
[2023-05-02] MEDS ORDERED: ATOR80TA GT (16:38)
[2023-05-02] MEDS ORDERED: METO50TA16 GT (16:38)
[2023-05-02] MEDS ORDERED: NA P133E RC (16:49)
[2023-05-02] MEDS ORDERED: MULT-213 GT (16:49)
[2023-05-02] MEDS ORDERED: DOCU100T2 GT (16:49)
[2023-05-02] MEDS ORDERED: LEVE100S GT (16:49)
[2023-05-02] MEDS ORDERED: MAGN400O6 GT (16:49)
[2023-05-02] MEDS ORDERED: PANT20TA2 GT (16:49)
[2023-05-02] MEDS ORDERED: BISA10SU11 RC (16:49)
[2023-05-02] MEDS ORDERED: AMIN30LI2 GT (16:49)
[2023-05-02] MEDS ORDERED: CRAN425C6 GT (16:49)
[2023-05-02 17:33] LABS: ADD URINE CULTURE YES; BACTERIA,URINE 1+ /HPF (None Seen); MUCUS,URINE Moderate /LPF (None Seen); SQUAMOUS EPITHELIAL CELL,UR None Seen /HPF (None Seen); WBC,URINE TOO NUMEROUS TO COUN /HPF (0-3)
[2023-05-02 17:42] LABS: ALBUMIN 2.9 g/dL (3.4-5.0); ALKALINE PHOSPHATASE 328 U/L (46-116); BILIRUBIN,TOTAL 0.8 mg/dL (0.2-1.0); CARBON DIOXIDE 22 mmol/L (21-32); CHLORIDE 90 mmol/L (98-107); CREATININE 2.6 mg/dL (0.6-1.3); GLUCOSE 121 mg/dL (74-106); POTASSIUM 4.4 mmol/L (3.5-5.1); SODIUM SERUM 125 mmol/L (136-145); UREA NITROGEN, BLOOD 78 mg/dL (7-18)
[2023-05-02 18:30] LABS: ASPARTATE AMINOTRANSFERASE 39 U/L (15-37); BILIRUBIN,DIRECT 0.4 mg/dL (0.0-0.2)
[2023-05-02 18:31] LABS: ALANINE AMINOTRANSFERASE 62 U/L (12-78)
[2023-05-02] MEDS ORDERED: ACETAMINOPHEN 325 MG TABLET PO PRN (19:00)
[2023-05-02] MEDS ORDERED: Z GUARD REMEDY 4 OZ OINT TP PRN (19:00)
[2023-05-02] MEDS ORDERED: ONDANSETRON HCL/PF 4 MG/2 ML VIAL IVP PRN (19:00)
[2023-05-02] MEDS ORDERED: DEXTROSE 50%-WATER 50 ML DISP.SYRIN IV PRN (19:00)
[2023-05-02] MEDS ORDERED: HYDROCODONE/APAP 5/325MG TABLET PO PRN (19:00)
[2023-05-02] MEDS: IV 1/2NS 1000 ML 1,000 ML IV PRN (19:52)
[2023-05-02 20:00] VITALS: BP 128/70; TEMP 98.2; O2SAT 96
[2023-05-02] MEDS: CEFTRIAXONE 1 G in IV D5W 50 ML IV SCH (20:13)
[2023-05-02] MEDS: BLOOD SUGAR DIAGNOSTIC 1 EACH STRIP IN SCH (22:12)
[2023-05-02] MEDS: INSULIN REGULAR, HUMAN 100 UNIT/ML 3 ML VIAL SQ PRN (22:13)
[2023-05-03 07:00] LABS: BASOPHILS % (AUTO) 0.1 % (0.0-2.0); EOSINOPHILS % (AUTO) 0.1 % (0.0-6.0); HEMATOCRIT 32 % (39-51); HEMOGLOBIN 10.9 g/dL (13.5-17.5); LYMPHOCYTES # (AUTO) 1.3 K/uL (0.8-4.8); LYMPHOCYTES % (AUTO) 15.2 % (20.0-44.0); MEAN CORPUSCULAR HEMOGLOBIN 29 PG (26.0-33.0); MEAN CORPUSCULAR HGB CONC 34 g/dl (31.0-36.0); MEAN CORPUSCULAR VOLUME 86 fL (80-96); MONOCYTES % (AUTO) 11.4 % (2.0-12.0); NEUTROPHILS # (AUTO) 6.1 K/uL (1.8-8.9); NEUTROPHILS % (AUTO) 73.2 % (43.0-81.0); PLATELET COUNT (AUTO) 234 K/uL (150-450); RED BLOOD CELL COUNT(AUTO) 3.72 MIL/uL (4.5-6.0); RED CELL DISTRIBUTION WIDTH 15.9 % (11.5-15.0); WHITE BLOOD COUNT (AUTO) 8.3 K/uL (4.3-11.0)
[2023-05-03] MEDS: BLOOD SUGAR DIAGNOSTIC 1 EACH STRIP IN SCH ×4 (07:03→21:31)
[2023-05-03] MEDS: INSULIN REGULAR, HUMAN 100 UNIT/ML 3 ML VIAL SQ PRN ×3 (07:04→16:50)
[2023-05-03 07:10] LABS: CALCIUM, SERUM 8.8 mg/dL (8.5-10.1); CARBON DIOXIDE 23 mmol/L (21-32); CHLORIDE 94 mmol/L (98-107); CREATININE 1.6 mg/dL (0.6-1.3); GLUCOSE 98 mg/dL (74-106); MAGNESIUM 2.1 mg/dL (1.8-2.4); PHOSPHORUS 4.6 mg/dL (2.5-4.9); POTASSIUM 3.3 mmol/L (3.5-5.1); SODIUM SERUM 129 mmol/L (136-145); UREA NITROGEN, BLOOD 68 mg/dL (7-18)
[2023-05-03 07:17] LABS: CHOLESTEROL 109 mg/dL (<200); HDL CHOLESTEROL 63 mg/dL (40-60); LDL 39 mg/dL (0-99); THYROID STIMULATING HORMONE 0.521 uIU/mL (0.358-3.74); TRIGLYCERIDES 32 mg/dL (30-150)
[2023-05-03] MEDS: PANTOPRAZOLE 40 MG TABLET.DR PO SCH (07:45)
[2023-05-03 08:00] VITALS: BP 119/78; TEMP 97.5; O2SAT 96
[2023-05-03] MEDS ORDERED: POTASSIUM CHLORIDE 20 MEQ TAB.PRT.SR PO SCH (10:00)
[2023-05-03 11:11] LABS: ALBUMIN 2.6 g/dL (3.4-5.0); BILIRUBIN,DIRECT 0.3 mg/dL (0.0-0.2); BILIRUBIN,TOTAL 0.5 mg/dL (0.2-1.0); TOTAL PROTEIN, SERUM 7.5 g/dL (6.4-8.2)
[2023-05-03] MEDS: IV 1/2NS 1000 ML 1,000 ML IV PRN (12:56)
[2023-05-03 13:07] LABS: MAGNESIUM 1.8 mg/dL (1.8-2.4); PHOSPHORUS 4.2 mg/dL (2.5-4.9)
[2023-05-03 13:18] LABS: THYROID STIMULATING HORMONE 0.731 uIU/mL (0.358-3.74); URIC ACID 8.6 mg/dL (2.6-7.2)
[2023-05-03] MEDS: METOCLOPRAMIDE HCL 10 MG/2 ML VIAL IV SCH ×2 (13:31→21:31)
[2023-05-03 16:00] VITALS: BP 121/66; TEMP 98.2; O2SAT 96
[2023-05-03] MEDS ORDERED: IV NS 0.9% 1,000 ML IV ONE (16:30)
[2023-05-03] MEDS: CEFTRIAXONE 1 G in IV D5W 50 ML IV SCH (19:46)
[2023-05-03 20:00] VITALS: BP 90/49; TEMP 97.9; O2SAT 96
[2023-05-04] MEDS: METOCLOPRAMIDE HCL 10 MG/2 ML VIAL IV SCH ×3 (04:31→21:51)
[2023-05-04 06:06] LABS: PTH, INTACT 13 pg/mL (15-65)
[2023-05-04 07:24] LABS: BASOPHILS % (AUTO) 0.3 % (0.0-2.0); EOSINOPHILS # (AUTO) 0.1 K/uL (0.0-0.7); EOSINOPHILS % (AUTO) 1.4 % (0.0-6.0); HEMATOCRIT 29 % (39-51); HEMOGLOBIN 9.9 g/dL (13.5-17.5); LYMPHOCYTES # (AUTO) 1.5 K/uL (0.8-4.8); LYMPHOCYTES % (AUTO) 23.5 % (20.0-44.0); MEAN CORPUSCULAR HEMOGLOBIN 30 PG (26.0-33.0); MEAN CORPUSCULAR HGB CONC 34 g/dl (31.0-36.0); MEAN CORPUSCULAR VOLUME 88 fL (80-96); MONOCYTES # (AUTO) 0.8 K/uL (0.1-1.30); NEUTROPHILS # (AUTO) 3.8 K/uL (1.8-8.9); NEUTROPHILS % (AUTO) 61.8 % (43.0-81.0); PLATELET COUNT (AUTO) 197 K/uL (150-450); RED BLOOD CELL COUNT(AUTO) 3.28 MIL/uL (4.5-6.0); RED CELL DISTRIBUTION WIDTH 16.1 % (11.5-15.0); WHITE BLOOD COUNT (AUTO) 6.2 K/uL (4.3-11.0)
[2023-05-04 07:35] LABS: MAGNESIUM 1.9 mg/dL (1.8-2.4); PHOSPHORUS 2.7 mg/dL (2.5-4.9)
[2023-05-04] MEDS: BLOOD SUGAR DIAGNOSTIC 1 EACH STRIP IN SCH ×4 (07:38→22:05)
[2023-05-04 08:00] VITALS: BP 140/71; TEMP 97.7; O2SAT 97
[2023-05-04 08:06] LABS: *SPE A/G RATIO 0.7 (0.7-1.7); *SPE ALBUMIN 2.7 g/dL (2.9-4.4); *SPE ALPHA-1-GLOBULIN 0.4 g/dL (0.0-0.4); *SPE ALPHA-2-GLOBULIN 0.9 g/dL (0.4-1.0); *SPE BETA GLOBULIN 0.8 g/dL (0.7-1.3); *SPE GLOBULIN, TOTAL 3.9 g/dL (2.2-3.9); *SPE M-SPIKE Not Observed g/dL (Not Observed); *SPE PROTEIN TOTAL 6.6 g/dL (6.0-8.5); *SPEGAMMA GLOBULIN 1.8 g/dL (0.4-1.8)
[2023-05-04] MEDS: PANTOPRAZOLE 40 MG TABLET.DR PO SCH (09:28)
[2023-05-04] MEDS: PROSOURCE / PROSTAT (PYXIS) 30 ML UDC PO SCH ×2 (12:03→16:45)
[2023-05-04 12:50] LABS: BASOPHILS % (AUTO) 0.5 % (0.0-2.0); EOSINOPHILS # (AUTO) 0.1 K/uL (0.0-0.7); EOSINOPHILS % (AUTO) 1.3 % (0.0-6.0); HEMATOCRIT 30 % (39-51); HEMOGLOBIN 9.8 g/dL (13.5-17.5); LYMPHOCYTES # (AUTO) 0.9 K/uL (0.8-4.8); MEAN CORPUSCULAR HEMOGLOBIN 29 PG (26.0-33.0); MEAN CORPUSCULAR HGB CONC 33 g/dl (31.0-36.0); MEAN CORPUSCULAR VOLUME 90 fL (80-96); MONOCYTES # (AUTO) 0.5 K/uL (0.1-1.30); MONOCYTES % (AUTO) 12.1 % (2.0-12.0); NEUTROPHILS # (AUTO) 2.6 K/uL (1.8-8.9); NEUTROPHILS % (AUTO) 64.1 % (43.0-81.0); PLATELET COUNT (AUTO) 172 K/uL (150-450); RED BLOOD CELL COUNT(AUTO) 3.34 MIL/uL (4.5-6.0); RED CELL DISTRIBUTION WIDTH 15.8 % (11.5-15.0); WHITE BLOOD COUNT (AUTO) 4.1 K/uL (4.3-11.0)
[2023-05-04 13:03] LABS: ALANINE AMINOTRANSFERASE 51 U/L (12-78); ALBUMIN 2.3 g/dL (3.4-5.0); ALKALINE PHOSPHATASE 262 U/L (46-116); ASPARTATE AMINOTRANSFERASE 35 U/L (15-37); BILIRUBIN,TOTAL 0.4 mg/dL (0.2-1.0); CALCIUM, SERUM 8.6 mg/dL (8.5-10.1); CARBON DIOXIDE 22 mmol/L (21-32); CHLORIDE 102 mmol/L (98-107); CREATININE 1.1 mg/dL (0.6-1.3); GLUCOSE 108 mg/dL (74-106); MAGNESIUM 1.9 mg/dL (1.8-2.4); PHOSPHORUS 2.8 mg/dL (2.5-4.9); POTASSIUM 3.1 mmol/L (3.5-5.1); SODIUM SERUM 134 mmol/L (136-145); TOTAL PROTEIN, SERUM 7.1 g/dL (6.4-8.2); UREA NITROGEN, BLOOD 49 mg/dL (7-18)
[2023-05-04] MEDS: CYCLOBENZAPRINE 10 MG TABLET PO SCH ×2 (13:42→16:45)
[2023-05-04 14:10] LABS: ANISOCYTOSIS 1+
[2023-05-04 14:11] LABS: OVALOCYTES OCC; PLATELET ESTIMATE ADEQU
[2023-05-04] MEDS: POTASSIUM CHLORIDE 20 MEQ POWDER PACKET PO SCH ×2 (15:34→16:44)
[2023-05-04] MEDS: GLUCERNA SHAKE 237 ML CAN PO SCH (16:51)
[2023-05-04 20:00] VITALS: BP 135/63; TEMP 97.5; O2SAT 97
[2023-05-04] MEDS: CEFTRIAXONE 1 G in IV D5W 50 ML IV SCH (20:11)
[2023-05-05] MEDS: INSULIN REGULAR, HUMAN 100 UNIT/ML 3 ML VIAL SQ PRN (00:44)
[2023-05-05] MEDS: METOCLOPRAMIDE HCL 10 MG/2 ML VIAL IV SCH ×3 (05:02→21:42)
[2023-05-05] MEDS: BLOOD SUGAR DIAGNOSTIC 1 EACH STRIP IN SCH ×4 (06:26→22:00)
[2023-05-05 07:25] LABS: BASOPHILS % (AUTO) 0.4 % (0.0-2.0); EOSINOPHILS # (AUTO) 0.2 K/uL (0.0-0.7); EOSINOPHILS % (AUTO) 5.5 % (0.0-6.0); HEMATOCRIT 28 % (39-51); HEMOGLOBIN 9.4 g/dL (13.5-17.5); LYMPHOCYTES # (AUTO) 0.9 K/uL (0.8-4.8); LYMPHOCYTES % (AUTO) 22.1 % (20.0-44.0); MEAN CORPUSCULAR HEMOGLOBIN 29 PG (26.0-33.0); MEAN CORPUSCULAR HGB CONC 33 g/dl (31.0-36.0); MEAN CORPUSCULAR VOLUME 88 fL (80-96); MONOCYTES # (AUTO) 0.5 K/uL (0.1-1.30); MONOCYTES % (AUTO) 13.1 % (2.0-12.0); NEUTROPHILS # (AUTO) 2.4 K/uL (1.8-8.9); NEUTROPHILS % (AUTO) 58.9 % (43.0-81.0); PLATELET COUNT (AUTO) 164 K/uL (150-450); RED BLOOD CELL COUNT(AUTO) 3.18 MIL/uL (4.5-6.0); RED CELL DISTRIBUTION WIDTH 15.2 % (11.5-15.0); WHITE BLOOD COUNT (AUTO) 4.1 K/uL (4.3-11.0)
[2023-05-05 07:46] LABS: ALBUMIN 2.3 g/dL (3.4-5.0); BILIRUBIN,TOTAL 0.3 mg/dL (0.2-1.0); CALCIUM, SERUM 8.4 mg/dL (8.5-10.1); CREATININE 0.9 mg/dL (0.6-1.3); MAGNESIUM 1.9 mg/dL (1.8-2.4); PHOSPHORUS 2.3 mg/dL (2.5-4.9); TOTAL PROTEIN, SERUM 6.6 g/dL (6.4-8.2)
[2023-05-05] MEDS: PANTOPRAZOLE 40 MG TABLET.DR PO SCH (07:53)
[2023-05-05] MEDS: GLUCERNA SHAKE 237 ML CAN PO SCH ×2 (07:53→17:03)
[2023-05-05 08:00] VITALS: BP 153/69; TEMP 97.9; O2SAT 97
[2023-05-05 08:46] LABS: POTASSIUM 2.8 mmol/L (3.5-5.1)
[2023-05-05] MEDS: CYCLOBENZAPRINE 10 MG TABLET PO SCH ×3 (08:47→17:03)
[2023-05-05] MEDS: PROSOURCE / PROSTAT (PYXIS) 30 ML UDC PO SCH ×3 (08:47→17:03)
[2023-05-05] MEDS: POTASSIUM CL. PREMIX PERIPHER. 50 ML IV SCH ×2 (11:13→12:22)
[2023-05-05] MEDS ORDERED: POTASSIUM CHLORIDE 20 MEQ POWDER PACKET PO ONE (11:30)
[2023-05-05 16:08] VITALS: BP 156/79; TEMP 97.9; O2SAT 94
[2023-05-05] MEDS ORDERED: NEUTRA PHOS 1 POWD.PACKET PO ONE (17:00)
[2023-05-05 20:00] VITALS: BP 160/87; TEMP 98.1; O2SAT 97
[2023-05-05] MEDS: CEFTRIAXONE 1 G in IV D5W 50 ML IV SCH (20:20)
[2023-05-06] MEDS: METOCLOPRAMIDE HCL 10 MG/2 ML VIAL IV SCH ×3 (04:48→21:26)
[2023-05-06 06:58] LABS: CALCIUM, SERUM 8.5 mg/dL (8.5-10.1); CREATININE 0.8 mg/dL (0.6-1.3); PHOSPHORUS 2.3 mg/dL (2.5-4.9); POTASSIUM 3.3 mmol/L (3.5-5.1)
[2023-05-06 07:00] VITALS: BP 158/69; TEMP 97.5; O2SAT 98
[2023-05-06] MEDS: BLOOD SUGAR DIAGNOSTIC 1 EACH STRIP IN SCH ×4 (08:06→22:04)
[2023-05-06] MEDS: INSULIN REGULAR, HUMAN 100 UNIT/ML 3 ML VIAL SQ PRN ×2 (08:10→22:05)
[2023-05-06] MEDS: PANTOPRAZOLE 40 MG TABLET.DR PO SCH (08:23)
[2023-05-06] MEDS: CYCLOBENZAPRINE 10 MG TABLET PO SCH (08:23)
[2023-05-06] MEDS: PROSOURCE / PROSTAT (PYXIS) 30 ML UDC PO SCH ×3 (08:24→16:22)
[2023-05-06] MEDS: GLUCERNA SHAKE 237 ML CAN PO SCH ×2 (08:24→16:22)
[2023-05-06] MEDS ORDERED: POTASSIUM CHLORIDE 20 MEQ TAB.PRT.SR PO ONE (09:30)
[2023-05-06] MEDS ORDERED: POTASSIUM CHLORIDE 20 MEQ POWDER PACKET PO ONE (14:00)
[2023-05-06] MEDS ORDERED: NEUTRA PHOS 1 POWD.PACKET PO ONE (15:30)
[2023-05-06 16:00] VITALS: BP 137/83; TEMP 97.6; O2SAT 98
[2023-05-06] MEDS: BACLOFEN (10 MG) 10 MG TABLET PO SCH (16:21)
[2023-05-06] MEDS: CEFTRIAXONE 1 G in IV D5W 50 ML IV SCH (19:27)
[2023-05-06 20:00] VITALS: BP 167/76; TEMP 98.6; O2SAT 97
[2023-05-07] MEDS: METOCLOPRAMIDE HCL 10 MG/2 ML VIAL IV SCH ×2 (04:30→13:03)
[2023-05-07 06:51] LABS: ALANINE AMINOTRANSFERASE 57 U/L (12-78); ALBUMIN 2.3 g/dL (3.4-5.0); ALKALINE PHOSPHATASE 369 U/L (46-116); ASPARTATE AMINOTRANSFERASE 47 U/L (15-37); BILIRUBIN,TOTAL 0.3 mg/dL (0.2-1.0); CALCIUM, SERUM 8.4 mg/dL (8.5-10.1); CARBON DIOXIDE 24 mmol/L (21-32); CHLORIDE 101 mmol/L (98-107); CREATININE 0.9 mg/dL (0.6-1.3); GLUCOSE 97 mg/dL (74-106); MAGNESIUM 1.9 mg/dL (1.8-2.4); PHOSPHORUS 2.8 mg/dL (2.5-4.9); POTASSIUM 3.8 mmol/L (3.5-5.1); SODIUM SERUM 133 mmol/L (136-145); UREA NITROGEN, BLOOD 33 mg/dL (7-18)
[2023-05-07] MEDS: BLOOD SUGAR DIAGNOSTIC 1 EACH STRIP IN SCH ×2 (07:26→12:22)
[2023-05-07] MEDS: INSULIN REGULAR, HUMAN 100 UNIT/ML 3 ML VIAL SQ PRN (07:27)
[2023-05-07 08:00] VITALS: BP 134/84; TEMP 99; O2SAT 97
[2023-05-07] MEDS: PROSOURCE / PROSTAT (PYXIS) 30 ML UDC PO SCH ×2 (09:31→13:05)
[2023-05-07] MEDS: PANTOPRAZOLE 40 MG TABLET.DR PO SCH (09:31)
[2023-05-07] MEDS: BACLOFEN (10 MG) 10 MG TABLET PO SCH ×2 (09:32→13:05)
[2023-05-07] MEDS: GLUCERNA SHAKE 237 ML CAN PO SCH (09:48)
[2023-05-07 11:15] LABS: BASOPHILS % (AUTO) 0.6 % (0.0-2.0); EOSINOPHILS # (AUTO) 0.7 K/uL (0.0-0.7); EOSINOPHILS % (AUTO) 13.5 % (0.0-6.0); HEMATOCRIT 30 % (39-51); HEMOGLOBIN 10.2 g/dL (13.5-17.5); LYMPHOCYTES # (AUTO) 1.1 K/uL (0.8-4.8); LYMPHOCYTES % (AUTO) 21.8 % (20.0-44.0); MEAN CORPUSCULAR HEMOGLOBIN 30 PG (26.0-33.0); MEAN CORPUSCULAR HGB CONC 34 g/dl (31.0-36.0); MEAN CORPUSCULAR VOLUME 88 fL (80-96); MONOCYTES # (AUTO) 0.6 K/uL (0.1-1.30); NEUTROPHILS # (AUTO) 2.5 K/uL (1.8-8.9); NEUTROPHILS % (AUTO) 51.1 % (43.0-81.0); PLATELET COUNT (AUTO) 194 K/uL (150-450); RED BLOOD CELL COUNT(AUTO) 3.44 MIL/uL (4.5-6.0); RED CELL DISTRIBUTION WIDTH 14.9 % (11.5-15.0); WHITE BLOOD COUNT (AUTO) 4.9 K/uL (4.3-11.0)
[2023-05-07 16:00] VITALS: BP 127/61; TEMP 97.7; O2SAT 97
== END 2023-05-07 17:35 | DRG 698 ==
LOC: ER 14:27 → MED 17:47
DX: T83.098A Other mechanical complication of other urinary catheter, initial encounter (principal); N17.9 Acute kidney failure, unspecified; N39.0 Urinary tract infection, site not specified; G92.8 Other toxic encephalopathy; C90.00 Multiple myeloma not having achieved remission; R78.81 Bacteremia; E44.0 Moderate protein-calorie malnutrition; D68.59 Other primary thrombophilia; E87.1 Hypo-osmolality and hyponatremia; J90 Pleural effusion, not elsewhere classified; B96.5 Pseudomonas (aeruginosa) (mallei) (pseudomallei) as the cause of diseases classified elsewhere; Y73.8 Miscellaneous gastroenterology and urology devices associated with adverse incidents, not elsewhere classified; Y92.039 Unspecified place in apartment as the place of occurrence of the external cause; E78.5 Hyperlipidemia, unspecified; G40.909 Epilepsy, unspecified, not intractable, without status epilepticus; S51.812A Laceration without foreign body of left forearm, initial encounter; X58.XXXA Exposure to other specified factors, initial encounter; Z87.74 Personal history of (corrected) congenital malformations of heart and circulatory system; Q27.33 Arteriovenous malformation of digestive system vessel; Z68.22 Body mass index [BMI] 22.0-22.9, adult; Z74.09 Other reduced mobility; R13.10 Dysphagia, unspecified; Z93.4 Other artificial openings of gastrointestinal tract status; Z88.6 Allergy status to analgesic agent; Z79.01 Long term (current) use of anticoagulants; Z86.73 Personal history of transient ischemic attack (TIA), and cerebral infarction without residual deficits; M89.8X9 Other specified disorders of bone, unspecified site; M15.9 Polyosteoarthritis, unspecified; I25.10 Atherosclerotic heart disease of native coronary artery without angina pectoris; S30.0XXA Contusion of lower back and pelvis, initial encounter; G30.9 Alzheimer's disease, unspecified; F02.80 Dementia in other diseases classified elsewhere, unspecified severity, without behavioral disturbance, psychotic disturbance, mood disturbance, and anxiety; E87.6 Hypokalemia; D50.0 Iron deficiency anemia secondary to blood loss (chronic); Z86.718 Personal history of other venous thrombosis and embolism; E86.1 Hypovolemia; R11.2 Nausea with vomiting, unspecified; R91.8 Other nonspecific abnormal finding of lung field; R06.6 Hiccough; I12.9 Hypertensive chronic kidney disease with stage 1 through stage 4 chronic kidney disease, or unspecified chronic kidney disease; N18.9 Chronic kidney disease, unspecified; B95.8 Unspecified staphylococcus as the cause of diseases classified elsewhere
CPT/HCPCS: 36415; 71045-TC; 76770-TC; 80048-TC; 80053-TC; 80061-TC; 80076-TC; 81001; 82533; 82550-TC; 82962-TC; 83605-TC; 83735-TC; 83880; 83970; 84100-TC; 84155; 84165; 84443-TC; 84484-TC; 84550-TC; 85025-TC; 87040-TC; 87081-TC; 87086-TC; 92526; 92611-TC; 97110-TC; 97112-TC; 97530-TC; A4223; G0378; J0696; J1815; J2765; J3480; J3490; J7030; J7040; J7060

== ENCOUNTER 2023-06-24 16:26 | Emergency (ER) | payer MEDICARE, BC ==
[~2023-06-24] VITALS: Ht 182.9 cm; Wt 74.4 kg
[~2023-06-24 16:26] MED LIST changes: +ACET-868 GT; -ACET325T53 PO; +AMIN30LI2 GT; +AMLO10TA4 GT; +ATOR80TA GT; +BISA10SU11 RC; -CEFE2FRO IV; +CRAN425C6 GT; -DOCU100C36 PO; +DOCU100T2 GT; +LEVE100S GT; -LEVE500T20 PO; +MAGN400O6 GT; -METO25TA4 PO; +METO50TA16 GT; +MULT-213 GT; +NA P133E RC; -NIFE60TA2 PO; +PANT20TA2 GT; -PANT20TA2 PO; -ROSU20TA32 PO; +TRAM50TA2 GT; -VANC1PLA9 IV
[2023-06-24 16:55] LABS: BASOPHILS % (AUTO) 0.4 % (0.0-2.0); EOSINOPHILS # (AUTO) 0.3 K/uL (0.0-0.7); EOSINOPHILS % (AUTO) 5.1 % (0.0-6.0); HEMATOCRIT 35 % (39-51); HEMOGLOBIN 11.8 g/dL (13.5-17.5); LYMPHOCYTES # (AUTO) 2.4 K/uL (0.8-4.8); LYMPHOCYTES % (AUTO) 41.5 % (20.0-44.0); MEAN CORPUSCULAR HEMOGLOBIN 30 PG (26.0-33.0); MEAN CORPUSCULAR HGB CONC 34 g/dl (31.0-36.0); MEAN CORPUSCULAR VOLUME 89 fL (80-96); MONOCYTES # (AUTO) 0.5 K/uL (0.1-1.30); NEUTROPHILS # (AUTO) 2.6 K/uL (1.8-8.9); PLATELET COUNT (AUTO) 238 K/uL (150-450); RED CELL DISTRIBUTION WIDTH 14.7 % (11.5-15.0); WHITE BLOOD COUNT (AUTO) 5.8 K/uL (4.3-11.0)
[2023-06-24 17:05] LABS: CALCIUM, SERUM 9.1 mg/dL (8.5-10.1); CARBON DIOXIDE 22 mmol/L (21-32); CHLORIDE 95 mmol/L (98-107); CREATININE 1.3 mg/dL (0.6-1.3); GLUCOSE 109 mg/dL (74-106); POTASSIUM 3.5 mmol/L (3.5-5.1); SODIUM SERUM 130 mmol/L (136-145); UREA NITROGEN, BLOOD 27 mg/dL (7-18)
[2023-06-24 17:10] LABS: ALANINE AMINOTRANSFERASE 82 U/L (12-78); ALBUMIN 2.9 g/dL (3.4-5.0); ALKALINE PHOSPHATASE 551 U/L (46-116); ASPARTATE AMINOTRANSFERASE 74 U/L (15-37); BILIRUBIN,DIRECT 0.3 mg/dL (0.0-0.2); BILIRUBIN,TOTAL 0.7 mg/dL (0.2-1.0); LIPASE 32 U/L (16-77); TOTAL PROTEIN, SERUM 8.1 g/dL (6.4-8.2)
[2023-06-24 18:28] LABS: APPEARANCE,URINE SLIGHTLY CLOUDY (CLEAR); COLOR,URINE YELLOW (YELLOW)
[2023-06-24 18:29] LABS: PH,URINE 8.5 (5.0-8.0); PROTEIN,URINE 1+ mg/dl (NEGATIVE)
[2023-06-24 18:30] LABS: BILIRUBIN,URINE NEGATIVE (NEGATIVE); BLOOD, URINE NEGATIVE Ery/uL (NEGATIVE); KETONES,URINE NEGATIVE (NEGATIVE); LEUKOCYTE ESTERASE ,URINE 3+ (NEGATIVE); NITRITE, URINE NEGATIVE (NEGATIVE); UGLUCOSE NEGATIVE (NEGATIVE); UROBILINOGEN,URINE 0.2 EU/dL (0.2)
[2023-06-24 18:33] LABS: ADD URINE CULTURE YES; BACTERIA,URINE 3+ /HPF (None Seen); RBC,URINE 0-2 /HPF (0-2); SQUAMOUS EPITHELIAL CELL,UR 0-2 /HPF (None Seen); WBC,URINE 51-80 /HPF (0-3)
[2023-06-24 18:34] LABS: MUCUS,URINE Moderate /LPF (None Seen); TRIPLE PHOSPHATE CRYSTAL,UR Few /HPF (None Seen)
[2023-06-24] MEDS ORDERED: CEFU500T66 PO (19:21)
[2023-06-24] MEDS ORDERED: CEFTRIAXONE 1 G VIAL ONE (19:39)
[2023-06-24] MEDS ORDERED: CEFTRIAXONE 1 G VIAL IM ONE (20:00)
[2023-06-25 00:40] VITALS: BP 140/62; TEMP 98.2; O2SAT 98
== END 2023-06-25 00:40 | disposition home or self-care (01) ==
LOC: ER 16:37
DX: N39.0 Urinary tract infection, site not specified (principal); I10 Essential (primary) hypertension; E78.5 Hyperlipidemia, unspecified; Z88.8 Allergy status to other drugs, medicaments and biological substances; Z79.899 Other long term (current) drug therapy
CPT/HCPCS: 99284; 51702; 85025; 80048; 87086; 83690; 80076; 81001; 36415; J0696

== ENCOUNTER 2023-07-24 05:46 | Emergency (ER) | payer MEDICARE, BC ==
[~2023-07-24] VITALS: Ht 170.2 cm; Wt 59.0 kg
[~2023-07-24 05:46] MED LIST changes: +CEFU500T66 PO
[2023-07-24 06:59] LABS: APPEARANCE,URINE CLOUDY (CLEAR); BILIRUBIN,URINE NEGATIVE (NEGATIVE); BLOOD, URINE 2+ Ery/uL (NEGATIVE); COLOR,URINE YELLOW (YELLOW); KETONES,URINE NEGATIVE (NEGATIVE); LEUKOCYTE ESTERASE ,URINE 3+ (NEGATIVE); NITRITE, URINE NEGATIVE (NEGATIVE); PROTEIN,URINE NEGATIVE (NEGATIVE); UGLUCOSE NEGATIVE (NEGATIVE); UROBILINOGEN,URINE 0.2 EU/dL (0.2)
[2023-07-24 07:00] LABS: ADD URINE CULTURE YES; BACTERIA,URINE Moderate /HPF (None Seen); SQUAMOUS EPITHELIAL CELL,UR Rare /HPF (None Seen); WBC,URINE 21-50 /HPF (0-3)
[2023-07-24 07:02] LABS: BASOPHILS # (AUTO) 0.1 K/uL (0.0-0.2); BASOPHILS % (AUTO) 1.4 % (0.0-2.0); EOSINOPHILS # (AUTO) 0.2 K/uL (0.0-0.7); EOSINOPHILS % (AUTO) 5.4 % (0.0-6.0); HEMATOCRIT 32 % (39-51); HEMOGLOBIN 11.1 g/dL (13.5-17.5); LYMPHOCYTES # (AUTO) 0.8 K/uL (0.8-4.8); LYMPHOCYTES % (AUTO) 21.4 % (20.0-44.0); MEAN CORPUSCULAR HEMOGLOBIN 31 PG (26.0-33.0); MEAN CORPUSCULAR HGB CONC 35 g/dl (31.0-36.0); MEAN CORPUSCULAR VOLUME 88 fL (80-96); MONOCYTES # (AUTO) 0.4 K/uL (0.1-1.30); MONOCYTES % (AUTO) 9.3 % (2.0-12.0); NEUTROPHILS # (AUTO) 2.4 K/uL (1.8-8.9); NEUTROPHILS % (AUTO) 62.5 % (43.0-81.0); PLATELET COUNT (AUTO) 195 K/uL (150-450); RED BLOOD CELL COUNT(AUTO) 3.64 MIL/uL (4.5-6.0); RED CELL DISTRIBUTION WIDTH 14.1 % (11.5-15.0); WHITE BLOOD COUNT (AUTO) 3.8 K/uL (4.3-11.0)
[2023-07-24 07:08] LABS: POTASSIUM 3.2 mmol/L (3.5-5.1)
[2023-07-24] MEDS: POTASSIUM CHLORIDE 20 MEQ TAB.PRT.SR PO ONE (07:30)
[2023-07-24] MEDS: CEFTRIAXONE 1 G in IV D5W 50 ML IV ONE (07:30)
[2023-07-24] MEDS ORDERED: CEFD300C3 PO (08:10)
[2023-07-24] MEDS ORDERED: CEFTRIAXONE 1GM BAG (ER ONLY) 50 ML IV ONE (08:47)
[2023-07-24] MEDS ORDERED: POTASSIUM CHLORIDE 20 MEQ TAB.PRT.SR PO ONE (08:47)
[2023-07-24 11:26] VITALS: BP 139/66; TEMP 98.6; O2SAT 98
== END 2023-07-24 11:26 | disposition home or self-care (01) ==
LOC: ER 05:47
DX: T83.091A Other mechanical complication of indwelling urethral catheter, initial encounter (principal); N39.0 Urinary tract infection, site not specified; I10 Essential (primary) hypertension; E78.5 Hyperlipidemia, unspecified; Z88.6 Allergy status to analgesic agent; Z88.8 Allergy status to other drugs, medicaments and biological substances; Z79.899 Other long term (current) drug therapy
CPT/HCPCS: 99284; 96365; 96366; 51702; 85025; 80048; 87040 ×2; 87086; 81001; 36415; J0696 ×2; J7060; A4223

== ENCOUNTER 2023-07-27 07:31 | Inpatient (IN) | payer MEDICARE, BC ==
[~2023-07-27] VITALS: Ht 182.9 cm; Wt 68.0 kg
[~2023-07-27 07:31] MED LIST changes: +CEFD300C3 PO
[2023-07-27] MEDS ORDERED: MORPHINE SULFATE INJ 2 MG/ML DISP.SYRIN IV ONE (08:00)
[2023-07-27] MEDS ORDERED: ONDANSETRON HCL/PF 4 MG/2 ML VIAL IVP ONE (08:00)
[2023-07-27] MEDS ORDERED: IV NS 0.9% 1,000 ML BAG IV ONE (08:00)
[2023-07-27] MEDS ORDERED: CEFTRIAXONE 1 G in IV D5W 50 ML IV ONE (08:00)
[2023-07-27 08:29] LABS: BASOPHILS % (AUTO) 0.5 % (0.0-2.0); EOSINOPHILS # (AUTO) 0.3 K/uL (0.0-0.7); EOSINOPHILS % (AUTO) 5.8 % (0.0-6.0); HEMATOCRIT 36 % (39-51); HEMOGLOBIN 12.1 g/dL (13.5-17.5); LYMPHOCYTES # (AUTO) 1.8 K/uL (0.8-4.8); LYMPHOCYTES % (AUTO) 40.9 % (20.0-44.0); MEAN CORPUSCULAR HEMOGLOBIN 30 PG (26.0-33.0); MEAN CORPUSCULAR HGB CONC 34 g/dl (31.0-36.0); MEAN CORPUSCULAR VOLUME 89 fL (80-96); MONOCYTES # (AUTO) 0.3 K/uL (0.1-1.30); MONOCYTES % (AUTO) 7.8 % (2.0-12.0); PLATELET COUNT (AUTO) 211 K/uL (150-450); RED BLOOD CELL COUNT(AUTO) 4.02 MIL/uL (4.5-6.0); RED CELL DISTRIBUTION WIDTH 13.9 % (11.5-15.0); WHITE BLOOD COUNT (AUTO) 4.4 K/uL (4.3-11.0)
[2023-07-27] MEDS ORDERED: CEFTRIAXONE 1GM BAG (ER ONLY) 50 ML IV ONE (08:30)
[2023-07-27] MEDS ORDERED: MORPHINE SULFATE INJ 4 MG/ML DISP.SYRIN ONE (08:31)
[2023-07-27] MEDS ORDERED: ONDANSETRON HCL/PF 4 MG/2 ML VIAL ONE (08:35)
[2023-07-27 08:52] LABS: LACTIC ACID 1.6 mmol/L (0.4-2.0)
[2023-07-27 09:01] LABS: BILIRUBIN,DIRECT 0.2 mg/dL (0.0-0.2); BILIRUBIN,TOTAL 0.5 mg/dL (0.2-1.0); CALCIUM, SERUM 9.3 mg/dL (8.5-10.1); CREATININE 1.1 mg/dL (0.6-1.3); POTASSIUM 3.6 mmol/L (3.5-5.1); TOTAL PROTEIN, SERUM 8.1 g/dL (6.4-8.2)
[2023-07-27] MEDS ORDERED: ZOLPIDEM TARTRATE 5 MG TABLET PO PRN (10:00)
[2023-07-27] MEDS ORDERED: ONDANSETRON HCL/PF 4 MG/2 ML VIAL IVP PRN (10:00)
[2023-07-27] MEDS ORDERED: MAG HYDROX/AL HYDROX/SIMETH 30 ML UDC PO PRN (10:00)
[2023-07-27] MEDS ORDERED: MORPHINE SULFATE INJ 2 MG/ML DISP.SYRIN IV PRN (10:00)
[2023-07-27] MEDS ORDERED: Z GUARD REMEDY 4 OZ OINT TP PRN (10:00)
[2023-07-27] MEDS ORDERED: MAGNESIUM HYDROXIDE 30 ML UDC PO PRN (10:00)
[2023-07-27] MEDS ORDERED: ACETAMINOPHEN 325 MG TABLET PO PRN (10:00)
[2023-07-27 10:03] LABS: APPEARANCE,URINE SLIGHTLY CLOUDY (CLEAR); BILIRUBIN,URINE NEGATIVE (NEGATIVE); BLOOD, URINE 1+ Ery/uL (NEGATIVE); COLOR,URINE DARK YELLOW (YELLOW); KETONES,URINE TRACE mg/dL (NEGATIVE); LEUKOCYTE ESTERASE ,URINE 3+ (NEGATIVE); NITRITE, URINE NEGATIVE (NEGATIVE); PROTEIN,URINE 1+ mg/dl (NEGATIVE); UGLUCOSE NEGATIVE (NEGATIVE)
[2023-07-27 10:05] LABS: ADD URINE CULTURE YES; BACTERIA,URINE Rare /HPF (None Seen); SQUAMOUS EPITHELIAL CELL,UR Few /HPF (None Seen)
[2023-07-27] MEDS: IV NS 0.9% 1,000 ML IV PRN (11:55)
[2023-07-27] MEDS ORDERED: ATOR80TA GT (12:00)
[2023-07-27] MEDS ORDERED: BETH10TA4 GT (12:00)
[2023-07-27] MEDS ORDERED: HYDR100T27 GT (12:00)
[2023-07-27] MEDS ORDERED: PANT20TA2 GT (12:00)
[2023-07-27] MEDS ORDERED: PHOS118S25 GT (12:00)
[2023-07-27] MEDS ORDERED: METO50TA16 GT (12:00)
[2023-07-27] MEDS ORDERED: ESCI10TA GT (12:00)
[2023-07-27] MEDS ORDERED: LEVE100S GT (12:00)
[2023-07-27] MEDS ORDERED: AMLO10TA4 GT (12:00)
[2023-07-27] MEDS ORDERED: DOCU100T2 GT (12:00)
[2023-07-27] MEDS ORDERED: TRAM50TA2 GT (12:00)
[2023-07-27] MEDS ORDERED: ACET-868 GT (12:02)
[2023-07-28 02:30] VITALS: BP 137/71; TEMP 97.9; O2SAT 96
[2023-07-28] MEDS: IV NS 0.9% 1,000 ML IV PRN (03:21)
[2023-07-28] MEDS ORDERED: MAGNESIUM HYDROXIDE 30 ML UDC GT PRN (04:30)
[2023-07-28] MEDS ORDERED: PHARMACY TO CHANGE PO MEDS TO GT/NG XX PRN (04:30)
[2023-07-28] MEDS ORDERED: MAG HYDROX/AL HYDROX/SIMETH 30 ML UDC GT PRN (04:30)
[2023-07-28] MEDS ORDERED: ACETAMINOPHEN 650 MG/20.3 ML UDC GT PRN (04:30)
[2023-07-28] MEDS ORDERED: ZOLPIDEM TARTRATE 5 MG TABLET GT PRN (04:30)
[2023-07-28 05:45] LABS: BASOPHILS % (AUTO) 0.7 % (0.0-2.0); EOSINOPHILS # (AUTO) 0.3 K/uL (0.0-0.7); EOSINOPHILS % (AUTO) 9.4 % (0.0-6.0); HEMATOCRIT 29 % (39-51); HEMOGLOBIN 9.9 g/dL (13.5-17.5); LYMPHOCYTES # (AUTO) 0.9 K/uL (0.8-4.8); LYMPHOCYTES % (AUTO) 29.6 % (20.0-44.0); MEAN CORPUSCULAR HEMOGLOBIN 30 PG (26.0-33.0); MEAN CORPUSCULAR HGB CONC 34 g/dl (31.0-36.0); MEAN CORPUSCULAR VOLUME 89 fL (80-96); MONOCYTES # (AUTO) 0.3 K/uL (0.1-1.30); MONOCYTES % (AUTO) 10.2 % (2.0-12.0); NEUTROPHILS # (AUTO) 1.5 K/uL (1.8-8.9); NEUTROPHILS % (AUTO) 50.1 % (43.0-81.0); PLATELET COUNT (AUTO) 161 K/uL (150-450); RED BLOOD CELL COUNT(AUTO) 3.25 MIL/uL (4.5-6.0); RED CELL DISTRIBUTION WIDTH 13.9 % (11.5-15.0)
[2023-07-28 06:14] LABS: CALCIUM, SERUM 7.7 mg/dL (8.5-10.1); CREATININE 0.8 mg/dL (0.6-1.3); MAGNESIUM 1.6 mg/dL (1.8-2.4); PHOSPHORUS 3.5 mg/dL (2.5-4.9); POTASSIUM 3.2 mmol/L (3.5-5.1)
[2023-07-28 07:30] VITALS: BP 128/67; TEMP 97.3; O2SAT 96
[2023-07-28] MEDS: Magnesium 1GM/D5W 100ML PREMIX 100 ML IV SCH ×2 (09:49→11:23)
[2023-07-28] MEDS ORDERED: POTASSIUM CHLORIDE 20 MEQ POWDER PACKET NG SCH (10:00)
[2023-07-28 16:00] VITALS: BP 117/73; TEMP 98.4; O2SAT 95
[2023-07-28 20:00] VITALS: BP 131/61; TEMP 97.8; O2SAT 96
[2023-07-29] MEDS: IV NS 0.9% 1,000 ML IV PRN (01:31)
[2023-07-29 07:07] LABS: BASOPHILS % (AUTO) 0.5 % (0.0-2.0); EOSINOPHILS # (AUTO) 0.3 K/uL (0.0-0.7); EOSINOPHILS % (AUTO) 6.1 % (0.0-6.0); HEMATOCRIT 29 % (39-51); HEMOGLOBIN 9.8 g/dL (13.5-17.5); LYMPHOCYTES # (AUTO) 1.3 K/uL (0.8-4.8); LYMPHOCYTES % (AUTO) 29.6 % (20.0-44.0); MEAN CORPUSCULAR HEMOGLOBIN 30 PG (26.0-33.0); MEAN CORPUSCULAR HGB CONC 34 g/dl (31.0-36.0); MEAN CORPUSCULAR VOLUME 90 fL (80-96); MONOCYTES # (AUTO) 0.4 K/uL (0.1-1.30); MONOCYTES % (AUTO) 9.7 % (2.0-12.0); NEUTROPHILS # (AUTO) 2.4 K/uL (1.8-8.9); NEUTROPHILS % (AUTO) 54.1 % (43.0-81.0); PLATELET COUNT (AUTO) 171 K/uL (150-450); RED BLOOD CELL COUNT(AUTO) 3.22 MIL/uL (4.5-6.0); RED CELL DISTRIBUTION WIDTH 13.9 % (11.5-15.0); WHITE BLOOD COUNT (AUTO) 4.5 K/uL (4.3-11.0)
[2023-07-29 07:21] LABS: CALCIUM, SERUM 8.1 mg/dL (8.5-10.1); CARBON DIOXIDE 25 mmol/L (21-32); CHLORIDE 104 mmol/L (98-107); CREATININE 0.9 mg/dL (0.6-1.3); GLUCOSE 104 mg/dL (74-106); MAGNESIUM 2.1 mg/dL (1.8-2.4); POTASSIUM 3.5 mmol/L (3.5-5.1); SODIUM SERUM 134 mmol/L (136-145); UREA NITROGEN, BLOOD 20 mg/dL (7-18)
[2023-07-29 08:00] VITALS: BP 155/59; TEMP 98.1; O2SAT 96
== END 2023-07-29 15:30 | disposition home health service (06) | DRG 694 ==
LOC: ER 07:31 → TRANSITION 10:21 → MED 07-28 02:18
PROVIDERS: ADMIT Internal Medicine; ATTEND Internal Medicine
DX: N13.2 Hydronephrosis with renal and ureteral calculous obstruction (principal); E87.1 Hypo-osmolality and hyponatremia; I69.251 Hemiplegia and hemiparesis following other nontraumatic intracranial hemorrhage affecting right dominant side; C90.00 Multiple myeloma not having achieved remission; D68.59 Other primary thrombophilia; R64 Cachexia; E44.0 Moderate protein-calorie malnutrition; J90 Pleural effusion, not elsewhere classified; E78.5 Hyperlipidemia, unspecified; I10 Essential (primary) hypertension; G40.909 Epilepsy, unspecified, not intractable, without status epilepticus; R13.10 Dysphagia, unspecified; Z93.1 Gastrostomy status; Z88.6 Allergy status to analgesic agent; Z91.011 Allergy to milk products; Z79.899 Other long term (current) drug therapy; N31.9 Neuromuscular dysfunction of bladder, unspecified; E86.1 Hypovolemia; B96.89 Other specified bacterial agents as the cause of diseases classified elsewhere; F02.80 Dementia in other diseases classified elsewhere, unspecified severity, without behavioral disturbance, psychotic disturbance, mood disturbance, and anxiety; G30.9 Alzheimer's disease, unspecified; I25.10 Atherosclerotic heart disease of native coronary artery without angina pectoris; Z86.718 Personal history of other venous thrombosis and embolism; M15.9 Polyosteoarthritis, unspecified; Z74.09 Other reduced mobility; E88.09 Other disorders of plasma-protein metabolism, not elsewhere classified; Z79.01 Long term (current) use of anticoagulants; Z87.440 Personal history of urinary (tract) infections; D64.9 Anemia, unspecified; K57.30 Diverticulosis of large intestine without perforation or abscess without bleeding; N32.3 Diverticulum of bladder
CPT/HCPCS: 36415; 71045-TC; 80048-TC; 80076-TC; 81001; 83605-TC; 83690-TC; 83735-TC; 84100-TC; 85025-TC; 87040-TC; 87086-TC; A4223; G0378; J0696; J2270; J2405; J3475; J7030; J7060

== ENCOUNTER 2023-10-19 03:32 | Emergency (ER) | payer MEDICARE, BC ==
[~2023-10-19] VITALS: Ht 180.3 cm; Wt 72.6 kg
[~2023-10-19 03:32] MED LIST changes: -AMIN30LI2 GT; -BISA10SU11 RC; -CEFD300C3 PO; -CEFU500T66 PO; -CRAN425C6 GT; -LACT-209 GT; -MAGN400O6 GT; -MULT-213 GT; -NA P133E RC; +PHOS118S25 GT
[2023-10-19 04:45] LABS: ADD URINE CULTURE YES; APPEARANCE,URINE CLOUDY (CLEAR); BACTERIA,URINE Moderate /HPF (None Seen); BILIRUBIN,URINE NEGATIVE (NEGATIVE); BLOOD, URINE NEGATIVE Ery/uL (NEGATIVE); COLOR,URINE DARK YELLOW (YELLOW); KETONES,URINE NEGATIVE (NEGATIVE); LEUKOCYTE ESTERASE ,URINE 3+ (NEGATIVE); NITRITE, URINE NEGATIVE (NEGATIVE); PROTEIN,URINE 1+ mg/dl (NEGATIVE); RBC,URINE 0-2 /HPF (0-2); SQUAMOUS EPITHELIAL CELL,UR Rare /HPF (None Seen); UGLUCOSE NEGATIVE (NEGATIVE); WBC,URINE TOO NUMEROUS TO COUN /HPF (0-3)
[2023-10-19] MEDS ORDERED: CEPH500T PO (04:52)
[2023-10-19] MEDS ORDERED: CEPHALEXIN MONOHYDRATE 500 MG CAPSULE PO ONE (04:55)
[2023-10-19] MEDS: CEPHALEXIN MONOHYDRATE 500 MG CAPSULE PO ONE (05:05)
[2023-10-19 07:03] VITALS: BP 156/89; TEMP 98.8; O2SAT 99
== END 2023-10-19 07:04 | disposition home or self-care (01) ==
LOC: ER 03:42
DX: N39.0 Urinary tract infection, site not specified (principal); I10 Essential (primary) hypertension; E78.5 Hyperlipidemia, unspecified; Z79.899 Other long term (current) drug therapy; Z98.890 Other specified postprocedural states; Z88.1 Allergy status to other antibiotic agents
CPT/HCPCS: 81001; 87086-TC

== ENCOUNTER 2024-03-10 16:46 | Inpatient (IN) | payer MEDICARE, BC ==
[~2024-03-10] VITALS: Ht 185.4 cm; Wt 70.5 kg
[~2024-03-10 16:46] MED LIST changes: +CEPH500T PO
[2024-03-10] MEDS ORDERED: ONDANSETRON HCL/PF 4 MG/2 ML VIAL ONE (17:29)
[2024-03-10] MEDS: IV NS 0.9% 1,000 ML BAG IV ONE (17:40)
[2024-03-10] MEDS: ONDANSETRON HCL/PF 4 MG/2 ML VIAL IVP ONE (17:42)
[2024-03-10 17:48] LABS: BASOPHILS % (AUTO) 0.3 % (0.0-2.0); EOSINOPHILS % (AUTO) 0.6 % (0.0-6.0); HEMATOCRIT 28 % (39-51); HEMOGLOBIN 9.5 g/dL (13.5-17.5); LYMPHOCYTES # (AUTO) 0.5 K/uL (0.8-4.8); MEAN CORPUSCULAR HEMOGLOBIN 31 PG (26.0-33.0); MEAN CORPUSCULAR HGB CONC 34 g/dl (31.0-36.0); MEAN CORPUSCULAR VOLUME 92 fL (80-96); MONOCYTES # (AUTO) 0.2 K/uL (0.1-1.30); NEUTROPHILS # (AUTO) 4.7 K/uL (1.8-8.9); NEUTROPHILS % (AUTO) 86.1 % (43.0-81.0); PLATELET COUNT (AUTO) 217 K/uL (150-450); RED BLOOD CELL COUNT(AUTO) 3.04 MIL/uL (4.5-6.0); RED CELL DISTRIBUTION WIDTH 15.1 % (11.5-15.0); WHITE BLOOD COUNT (AUTO) 5.4 K/uL (4.3-11.0)
[2024-03-10 17:58] LABS: CALCIUM, SERUM 7.7 mg/dL (8.5-10.1); CARBON DIOXIDE 27 mmol/L (21-32); CHLORIDE 99 mmol/L (98-107); CREATININE 0.9 mg/dL (0.6-1.3); GLUCOSE 82 mg/dL (74-106); SODIUM SERUM 133 mmol/L (136-145); UREA NITROGEN, BLOOD 19 mg/dL (7-18)
[2024-03-10 18:04] LABS: ALANINE AMINOTRANSFERASE 32 U/L (12-78); ALBUMIN 1.8 g/dL (3.4-5.0); ALKALINE PHOSPHATASE 578 U/L (46-116); ASPARTATE AMINOTRANSFERASE 50 U/L (15-37); BILIRUBIN,DIRECT 0.6 mg/dL (0.0-0.2); BILIRUBIN,TOTAL 0.9 mg/dL (0.2-1.0); TOTAL PROTEIN, SERUM 7.2 g/dL (6.4-8.2)
[2024-03-10] MEDS ORDERED: MULT-213 GT (18:42)
[2024-03-10] MEDS ORDERED: METO-357 PO (18:45)
[2024-03-10 19:00] VITALS: O2SAT 93
[2024-03-10] MEDS ORDERED: MORPHINE SULFATE INJ 2 MG/ML DISP.SYRIN IV PRN (19:30)
[2024-03-10] MEDS ORDERED: hydrALAZINE HCL IV 20 MG VIAL IV PRN (19:30)
[2024-03-10] MEDS ORDERED: ONDANSETRON HCL/PF 4 MG/2 ML VIAL IVP PRN (19:30)
[2024-03-10] MEDS: ASPIRIN 300 MG/SUPP.RECT RC ONE (19:30)
[2024-03-10 19:41] LABS: INR 1.08 (0.91-1.10); PARTIAL THROMBOPLASTIN TIME 32.2 SEC (24.3-34.3); PROTHROMBIN TIME 11.4 SECS (9.2-11.1)
[2024-03-10 19:45] LABS: APPEARANCE,URINE SLIGHTLY CLOUDY (CLEAR); BILIRUBIN,URINE NEGATIVE (NEGATIVE); BLOOD, URINE NEGATIVE Ery/uL (NEGATIVE); COLOR,URINE DARK YELLOW (YELLOW); KETONES,URINE NEGATIVE (NEGATIVE); LEUKOCYTE ESTERASE ,URINE 3+ (NEGATIVE); NITRITE, URINE NEGATIVE (NEGATIVE); PH,URINE 7.5 (5.0-8.0); PROTEIN,URINE 1+ mg/dl (NEGATIVE); UGLUCOSE NEGATIVE (NEGATIVE)
[2024-03-10 20:20] LABS: ADD URINE CULTURE YES; BACTERIA,URINE 2+ /HPF (None Seen); SQUAMOUS EPITHELIAL CELL,UR None Seen /HPF (None Seen)
[2024-03-10] MEDS ORDERED: ENOXAPARIN SODIUM 100 MG/ML DISP.SYRIN SQ ONE ×2 (20:52→22:00)
[2024-03-10] MEDS: ENOXAPARIN SODIUM 100 MG/ML DISP.SYRIN SQ SCH (20:55)
[2024-03-10] MEDS ORDERED: CEFTRIAXONE 1GM BAG (ER ONLY) 50 ML IV ONE (21:00)
[2024-03-10] MEDS: CEFTRIAXONE 1GM BAG (ER ONLY) 1 GM/50 ML PIGGYBACK IV ONE (21:05)
[2024-03-10 21:25] VITALS: BP 129/56; TEMP 98.8; O2SAT 93
[2024-03-10] MEDS: IV NS 0.9% 1,000 ML IV SCH (22:57)
[2024-03-10] MEDS ORDERED: METOPROLOL SUCCINATE 50 MG TAB.SR.24H PO PRN (23:30)
[2024-03-11] VITALS: BP 129/56; TEMP 98.4; O2SAT 94
[2024-03-11 04:00] VITALS: BP 125/57; TEMP 98.1; O2SAT 96
[2024-03-11 07:30] VITALS: BP 114/53; TEMP 98.2; O2SAT 96
[2024-03-11 08:15] VITALS: BP 115/56; TEMP 97.7; O2SAT 100
[2024-03-11] MEDS: ENOXAPARIN SODIUM 80 MG/0.8 ML DISP.SYRIN SQ SCH (09:00)
[2024-03-11 10:22] LABS: BASOPHILS % (AUTO) 0.5 % (0.0-2.0); EOSINOPHILS % (AUTO) 0.5 % (0.0-6.0); HEMATOCRIT 26 % (39-51); HEMOGLOBIN 8.7 g/dL (13.5-17.5); LYMPHOCYTES # (AUTO) 0.7 K/uL (0.8-4.8); LYMPHOCYTES % (AUTO) 11.3 % (20.0-44.0); MEAN CORPUSCULAR HEMOGLOBIN 31 PG (26.0-33.0); MEAN CORPUSCULAR HGB CONC 34 g/dl (31.0-36.0); MEAN CORPUSCULAR VOLUME 92 fL (80-96); MONOCYTES # (AUTO) 0.5 K/uL (0.1-1.30); MONOCYTES % (AUTO) 7.5 % (2.0-12.0); NEUTROPHILS % (AUTO) 80.2 % (43.0-81.0); PLATELET COUNT (AUTO) 184 K/uL (150-450); RED CELL DISTRIBUTION WIDTH 15.2 % (11.5-15.0); WHITE BLOOD COUNT (AUTO) 6.2 K/uL (4.3-11.0)
[2024-03-11] MEDS: LEVETIRACETAM SOL (5 ML) 100 MG/ML UDC GT SCH (10:27)
[2024-03-11] MEDS: ASPIRIN 81 MG TAB.CHEW PO SCH (10:28)
[2024-03-11] MEDS: BETHANECHOL CHLORIDE (10 MG) 10 MG TABLET GT SCH (10:28)
[2024-03-11] MEDS: ESCITALOPRAM OXALATE (10 MG) 10 MG TABLET GT SCH (10:28)
[2024-03-11] MEDS: METOPROLOL SUCCINATE 50 MG TAB.SR.24H PO SCH (10:29)
[2024-03-11] MEDS: CEFTRIAXONE 1 G in IV D5W 50 ML IV SCH (10:29)
[2024-03-11 10:36] LABS: CARBON DIOXIDE 25 mmol/L (21-32); CHLORIDE 103 mmol/L (98-107); CREATININE 0.8 mg/dL (0.6-1.3); GLUCOSE 85 mg/dL (74-106); POTASSIUM 4.3 mmol/L (3.5-5.1); SODIUM SERUM 135 mmol/L (136-145); UREA NITROGEN, BLOOD 20 mg/dL (7-18)
[2024-03-11 10:37] LABS: ALANINE AMINOTRANSFERASE 25 U/L (12-78); ALBUMIN 1.6 g/dL (3.4-5.0); ASPARTATE AMINOTRANSFERASE 48 U/L (15-37); BILIRUBIN,TOTAL 0.9 mg/dL (0.2-1.0); MAGNESIUM 1.8 mg/dL (1.8-2.4); PHOSPHORUS 3.6 mg/dL (2.5-4.9); TOTAL PROTEIN, SERUM 6.6 g/dL (6.4-8.2)
[2024-03-11 10:51] LABS: ALKALINE PHOSPHATASE 425 U/L (46-116)
[2024-03-11 10:54] LABS: FERRITIN 499 ng/mL (8-388)
[2024-03-11 11:42] LABS: IRON, SERUM 16 ug/dl (50-175); TOTAL IRON BINDING CAPACITY 138 ug/dl (250-450)
[2024-03-11] MEDS: ACETAMINOPHEN 325 MG TABLET PO PRN (12:41)
[2024-03-11 16:00] VITALS: BP 120/61; TEMP 97.5; O2SAT 99
[2024-03-12 00:25] VITALS: BP 132/61; TEMP 97.5; O2SAT 99
[2024-03-12 04:33] VITALS: BP 134/60; TEMP 97.7; O2SAT 100
[2024-03-12 06:48] LABS: BASOPHILS % (AUTO) 0.6 % (0.0-2.0); EOSINOPHILS # (AUTO) 0.2 K/uL (0.0-0.7); EOSINOPHILS % (AUTO) 4.7 % (0.0-6.0); HEMATOCRIT 26 % (39-51); HEMOGLOBIN 8.9 g/dL (13.5-17.5); LYMPHOCYTES # (AUTO) 0.9 K/uL (0.8-4.8); LYMPHOCYTES % (AUTO) 26.5 % (20.0-44.0); MEAN CORPUSCULAR HEMOGLOBIN 32 PG (26.0-33.0); MEAN CORPUSCULAR HGB CONC 35 g/dl (31.0-36.0); MEAN CORPUSCULAR VOLUME 93 fL (80-96); MONOCYTES # (AUTO) 0.3 K/uL (0.1-1.30); MONOCYTES % (AUTO) 9.8 % (2.0-12.0); NEUTROPHILS # (AUTO) 2.1 K/uL (1.8-8.9); NEUTROPHILS % (AUTO) 58.4 % (43.0-81.0); PLATELET COUNT (AUTO) 157 K/uL (150-450); RED BLOOD CELL COUNT(AUTO) 2.75 MIL/uL (4.5-6.0); RED CELL DISTRIBUTION WIDTH 15.1 % (11.5-15.0); WHITE BLOOD COUNT (AUTO) 3.5 K/uL (4.3-11.0)
[2024-03-12 07:35] LABS: CALCIUM, SERUM 8.1 mg/dL (8.5-10.1); CARBON DIOXIDE 26 mmol/L (21-32); CHLORIDE 103 mmol/L (98-107); CREATININE 0.9 mg/dL (0.6-1.3); GLUCOSE 74 mg/dL (74-106); POTASSIUM 3.9 mmol/L (3.5-5.1); SODIUM SERUM 136 mmol/L (136-145); UREA NITROGEN, BLOOD 18 mg/dL (7-18)
[2024-03-12 07:40] LABS: FREE PSA 0.15 ng/mL (0.00-45); PROSTATE SPECIFIC ANTIGEN SCR 3.88 ng/mL (0.00-4.00)
[2024-03-12 08:00] VITALS: BP 134/56; TEMP 97.5; O2SAT 98
[2024-03-12] MEDS: ENOXAPARIN SODIUM 40 MG/0.4 ML DISP.SYRIN SQ SCH (09:30)
[2024-03-12 12:00] VITALS: BP 114/66; TEMP 97.5; O2SAT 98
[2024-03-12 16:01] VITALS: BP 119/62; TEMP 97.3; O2SAT 97
[2024-03-12 16:32] LABS: PROTEIN, BODY FLUID 3.8 G/DL
[2024-03-12 19:43] LABS: WBC, BODY FLUID 1681 /cu. mm. (0-200)
[2024-03-12 20:00] VITALS: BP 129/56; TEMP 97.6; O2SAT 96
[2024-03-12 20:04] LABS: APPEARANCE,SPUN,BODY FLUID CLEAR (CLEAR)
[2024-03-12 20:05] LABS: TOTAL VOLUME,BODY FLUID 1000 mL
[2024-03-12 22:47] LABS: MONOCYTES,BODY FLUID 5 %
[2024-03-13] VITALS: BP 155/69; TEMP 97.7; O2SAT 96
[2024-03-13 05:00] VITALS: BP 149/70; TEMP 98.4; O2SAT 98
[2024-03-13 06:10] LABS: FOLIC ACID 3.8 ng/mL (>3.0)
[2024-03-13 06:58] LABS: BASOPHILS % (AUTO) 0.5 % (0.0-2.0); EOSINOPHILS # (AUTO) 0.2 K/uL (0.0-0.7); EOSINOPHILS % (AUTO) 6.2 % (0.0-6.0); HEMATOCRIT 26 % (39-51); HEMOGLOBIN 8.7 g/dL (13.5-17.5); LYMPHOCYTES # (AUTO) 1.4 K/uL (0.8-4.8); LYMPHOCYTES % (AUTO) 37.4 % (20.0-44.0); MEAN CORPUSCULAR HEMOGLOBIN 31 PG (26.0-33.0); MEAN CORPUSCULAR HGB CONC 34 g/dl (31.0-36.0); MEAN CORPUSCULAR VOLUME 92 fL (80-96); MONOCYTES # (AUTO) 0.4 K/uL (0.1-1.30); MONOCYTES % (AUTO) 10.1 % (2.0-12.0); NEUTROPHILS # (AUTO) 1.7 K/uL (1.8-8.9); NEUTROPHILS % (AUTO) 45.8 % (43.0-81.0); PLATELET COUNT (AUTO) 174 K/uL (150-450); RED BLOOD CELL COUNT(AUTO) 2.81 MIL/uL (4.5-6.0); RED CELL DISTRIBUTION WIDTH 14.7 % (11.5-15.0); WHITE BLOOD COUNT (AUTO) 3.7 K/uL (4.3-11.0)
[2024-03-13 07:34] LABS: CALCIUM, SERUM 7.8 mg/dL (8.5-10.1); CARBON DIOXIDE 25 mmol/L (21-32); CHLORIDE 103 mmol/L (98-107); CREATININE 0.7 mg/dL (0.6-1.3); GLUCOSE 85 mg/dL (74-106); POTASSIUM 3.5 mmol/L (3.5-5.1); SODIUM SERUM 135 mmol/L (136-145); UREA NITROGEN, BLOOD 16 mg/dL (7-18)
[2024-03-13 08:00] VITALS: BP 139/69; TEMP 97.9; O2SAT 100
[2024-03-13 08:07] LABS: IMMUNOGLOBULIN A, SERUM 168 mg/dL (61-437); IMMUNOGLOBULIN G, SERUM 2078 mg/dL (603-1613); IMMUNOGLOBULIN M, SERUM 95 mg/dL (15-143)
[2024-03-13 09:09] LABS: FREE KAPPA LT CHAINS SERUM 69.5 mg/L (3.3-19.4); FREE LAMBDA LT CHAIN SERUM 80.4 mg/L (5.7-26.3); KAPPA/LAMBDA RATIO SERUM 0.86 (0.26-1.65)
[2024-03-13 09:31] VITALS: BP 139/69
[2024-03-13] MEDS ORDERED: AMOX-430 PO (12:04)
[2024-03-13] MEDS ORDERED: ASPI-1169 PO (12:04)
[2024-03-14 06:07] LABS: *SPE A/G RATIO 0.6 (0.7-1.7); *SPE ALBUMIN 2.2 g/dL (2.9-4.4); *SPE ALPHA-1-GLOBULIN 0.4 g/dL (0.0-0.4); *SPE ALPHA-2-GLOBULIN 0.7 g/dL (0.4-1.0); *SPE BETA GLOBULIN 0.8 g/dL (0.7-1.3); *SPE GLOBULIN, TOTAL 3.9 g/dL (2.2-3.9); *SPE M-SPIKE Not Observed g/dL (Not Observed); *SPE PROTEIN TOTAL 6.1 g/dL (6.0-8.5)
[2024-03-14 13:07] LABS: BETA-2 MICROGLOBULIN, SERUM 5.1 mg/L (0.6-2.4)
== END 2024-03-13 15:40 | disposition home health service (06) | DRG 280 ==
LOC: ER 17:30 → TELE 20:48 → MED 03-13 11:18
PROVIDERS: ADMIT Internal Medicine; ATTEND Internal Medicine
PROC: 0W9B3ZX Drainage of Left Pleural Cavity, Percutaneous Approach, Diagnostic (ICD-10-PCS; principal; 2024-03-12)
DX: I21.4 Non-ST elevation (NSTEMI) myocardial infarction (principal); E43 Unspecified severe protein-calorie malnutrition; E87.1 Hypo-osmolality and hyponatremia; J90 Pleural effusion, not elsewhere classified; F03.93 Unspecified dementia, unspecified severity, with mood disturbance; I10 Essential (primary) hypertension; Z74.01 Bed confinement status; Z85.79 Personal history of other malignant neoplasms of lymphoid, hematopoietic and related tissues; E78.5 Hyperlipidemia, unspecified; M15.9 Polyosteoarthritis, unspecified; E87.6 Hypokalemia; Z98.890 Other specified postprocedural states; Z88.6 Allergy status to analgesic agent; Z88.4 Allergy status to anesthetic agent; Z91.011 Allergy to milk products; I69.398 Other sequelae of cerebral infarction; I25.10 Atherosclerotic heart disease of native coronary artery without angina pectoris; D63.8 Anemia in other chronic diseases classified elsewhere; E88.09 Other disorders of plasma-protein metabolism, not elsewhere classified; F31.9 Bipolar disorder, unspecified; G93.89 Other specified disorders of brain; Z87.440 Personal history of urinary (tract) infections; R62.7 Adult failure to thrive; Z87.891 Personal history of nicotine dependence; Z79.899 Other long term (current) drug therapy; Z86.718 Personal history of other venous thrombosis and embolism
CPT/HCPCS: 36415; 70450-TC; 71045-TC; 80048-TC; 80053-TC; 80076-TC; 81001; 82232; 82378; 82607-TC; 82728-TC; 82784; 83540-TC; 83605-TC; 83615-TC; 83735-TC; 84100-TC; 84153-TC; 84154-TC; 84155; 84165; 84443-TC; 84484-TC; 85025-TC; 85730-TC; 86334; 87040-TC; 89051-TC; 93307-TC; 94799-TC; A4223; G0378; J0696; J1650; J1953; J2405; J7030; J7060